=== PATIENT | female | born 1975 | race African-American/Black ===

== ENCOUNTER 2016-11-15 11:37 | Emergency (ER) | payer MEDICARE, MEDICAID ==
[2016-11-15 12:09] LABS: #Basophils 0.1 thou/uL (0.0-0.2); #Eosinphils 0.2 thou/uL (0.0-0.7); #Lymphocytes 2.8 thou/uL (1.20-3.40); #Monocytes 0.5 thou/uL (0.11-0.59); #Neutrophils 5.2 thou/uL (1.40-6.50); %Basophils 0.6 % (0.0-1.0); %Eosinophils 2.1 % (0.0-10.0); %Monocytes 6.1 % (0.0-10.0); Hematocrit 41.8 % (36.0-47.0); Mean Platelet Volume 6.6 fL (7.4-10.4); Red Blood Cell (RBC) Count 4.85 mill/uL (4.20-5.40); White Blood Cell (WBC) Count 8.7 thou/uL (4.8-10.8)
[2016-11-15 12:24] LABS: Bilirubin Negative (Negative); Blood, Urine Negative (Negative); Glucose, Urine (Dipstick) Negative (Negative); Ketone, Urine Negative (Negative); Nitrite Negative (Negative); Protein, Urine (Dipstick) Negative (Neg-Trace); Urobilinogen 0.2 mg/dL (0.2-1.0)
[2016-11-15 12:27] LABS: Bacteria/HPF Rare-Few HPF (None Seen); Hyaline Casts/LPF 0-3 HYALINE CAST LPF (0-3 Hyaline); RBC/HPF 0-3 HPF (0-3); WBC/HPF 0-3 HPF (0-3)
--- NOTE | 2016-11-15 12:27 | RAD ---
PORTABLE CHEST 1 VIEW: Date: 11/15/16 Time: 1209 hours HISTORY: Chest pain, hypertension, aortic stenosis. FINDINGS: Comparison made with exam of 08/26/16. The heart size is normal. No focal areas of consolidation, pneumothorax, or pleural effusions are se en. IMPRESSION: No acute process. POS: [facility]
[2016-11-15 12:33] LABS: ALT (SGPT) 13 U/L (8-55); AST (SGOT) 17 U/L (5-34); Alkaline Phosphatase 146 U/L (40-150); Anion Gap 12 mmol/L (10-20); BUN (Urea Nitrogen) 8 mg/dL (7.0-18.7); Bilirubin, Total 0.2 mg/dL (0.2-1.2); CK (CPK) 64 U/L (29-168); Calc. Creatinine Clearance 0 mL/min (70-130); Calcium 9.5 mg/dL (7.8-10.44); Carbon Dioxide 26 mmol/L (22-29); Chloride 103 mmol/L (98-107); Estimated GFR-MDRD Greater than 90; Globulin 5.6 g/dL (2.4-3.5); Lipase 29 U/L (8-78); Protein, Total 9.4 g/dL (6.0-8.3)
[2016-11-15 12:37] LABS: Troponin I Less than 0.010 ng/mL (< 0.028)
[2016-11-15] MEDS ORDERED: Ondansetron ODT 4 MG TAB ONE (12:55)
[2016-11-15] MEDS ORDERED: Ondansetron HCl/PF 4 MG/2 ML Vial ONE (13:13)
[2016-11-15] MEDS ORDERED: Acetaminophen 500 MG TAB ONE (13:13)
== END 2016-11-15 13:38 | disposition home or self-care (01) ==
LOC: ERS 11:37
DX: I35.0 Nonrheumatic aortic (valve) stenosis (principal); I25.10 Atherosclerotic heart disease of native coronary artery without angina pectoris; I25.2 Old myocardial infarction; I38 Endocarditis, valve unspecified; I10 Essential (primary) hypertension; G47.30 Sleep apnea, unspecified; B20 Human immunodeficiency virus [HIV] disease; E55.9 Vitamin D deficiency, unspecified; F31.9 Bipolar disorder, unspecified; Z86.73 Personal history of transient ischemic attack (TIA), and cerebral infarction without residual deficits
CPT/HCPCS: 71010; 80053; 81003; 81015; 82550; 82553; 83690; 84484; 85025; 93005; 96374; J2405; Q0162

== ENCOUNTER 2017-01-09 10:59 | Day surgery (SDC) | payer MEDICARE, MEDICAID ==
[2017-01-08 14:43] VITALS: BMI 49.1
--- NOTE | 2017-01-09 16:18 | OP ---
DATE OF PROCEDURE: 01/09/2017 GI ENDOSCOPY NOTE SURGEON: Amari Rajan M.D. CABIN EQUIPMENT SUPERVISOR SURGEON: None. PROCEDURES: 1. Esophagogastroduodenoscopy, diagnostic. 2. Colonoscopy, diagnostic. INDICATIONS: 1. Chronic nausea and vomiting, with history of mild gastritis on EGD in 2014. 2. Abnormal CT scan of the colon, suggesting possible 2.5 cm density in the cecum near the ileocecal valve. MEDICATIONS: See anesthesia record. FINDINGS: After discussion of the risks, benefits and alternatives of the procedure, informed consen t was obtained and witnessed. Pre-endoscopic cardiopulmonary examination was satisfactory. Timeout was performed before sedation was achieved. Sedation was achieved with anesthesia assistance in the endoscopy unit. A Pentax adult upper endoscope was placed into the oropharynx and passed through the cricopharyngeus under direct visualization. The esophageal mucosa appeared normal throughout with a normal-appearing Z-line. The endoscope was advanced forward into the stomach. Forward and retrofle xed views of the entire gastric mucosa were obtained. The gastric mucosa appeared normal. The endos cope was advanced through the pylorus and into the first and second portions of the duodenum, which a lso appeared normal. The upper endoscope was then completely withdrawn and the patient was repositio ailyn. Digital rectal exam was performed which was unremarkable. A Pentax adult colonoscope was inserted in to the anus and passed forward to the cecum in the usual fashion. The cecal base was identified by t he appendiceal orifice as well as the ileocecal valve. The terminal ileum was intubated and the ilea l mucosa appeared normal. The colonoscope was then slowly withdrawn in a gradual and circumferential manner with careful examination of the entire colonic mucosa. The quality of the prep was good. Th e colonic mucosa appeared normal throughout. No evidence of any mucosal abnormality, no polyps or ot her lesion. Retroflexion in the rectum was also normal. The colonoscope was completely withdrawn an d the patient allowed to recover. The patient tolerated the procedure well. There were no immediate post-procedure complications. IMPRESSION: 1. Normal esophagogastroduodenoscopy. 2. Normal colonoscopy to the terminal ileum. 3. No endoscopic findings to correlate with recent CT abnormality. 4. I suspect her chronic nausea and vomiting is secondary to polypharmacy. RECOMMENDATIONS: 1. We will send him a prescription for promethazine 12.5 mg every 6 hours as needed. 2. Follow up in about a month in the GI Clinic with myself or one of our physician assistance.
[2017-01-09] MEDS ORDERED: Lidocaine 1% PF 5 ML VIAL ONE (18:35)
[2017-01-09] MEDS ORDERED: Propofol 200 MG/20 ML VIAL ONE (18:35)
== END 2017-01-09 14:57 | disposition home or self-care (01) ==
LOC: SDC 10:59
PROVIDERS: ATTEND Internal Medicine
PROC: 0DJD8ZZ Inspection of Lower Intestinal Tract, Via Natural or Artificial Opening Endoscopic (ICD-10-PCS; principal; 2017-01-09)
PROC: 0DJ08ZZ Inspection of Upper Intestinal Tract, Via Natural or Artificial Opening Endoscopic (ICD-10-PCS; 2017-01-09)
DX: R93.3 Abnormal findings on diagnostic imaging of other parts of digestive tract (principal); R11.2 Nausea with vomiting, unspecified; E66.9 Obesity, unspecified; G47.30 Sleep apnea, unspecified; F41.9 Anxiety disorder, unspecified; F32.9 Major depressive disorder, single episode, unspecified; Z21 Asymptomatic human immunodeficiency virus [HIV] infection status; Z68.42 Body mass index [BMI] 45.0-49.9, adult; Z79.82 Long term (current) use of aspirin; Z79.899 Other long term (current) drug therapy; Z88.8 Allergy status to other drugs, medicaments and biological substances; Z90.89 Acquired absence of other organs; Z90.710 Acquired absence of both cervix and uterus; Z98.890 Other specified postprocedural states
CPT/HCPCS: J2001; J2704

== ENCOUNTER 2017-02-25 16:00 | Outpatient (CLI) | payer MEDICARE, MEDICAID | END 2017-02-25 16:01 | disposition home or self-care (01) | LOC: BICMRI 16:00 | PROVIDERS: ATTEND Family Medicine | DX: M25.561 Pain in right knee (principal); S83.281A Other tear of lateral meniscus, current injury, right knee, initial encounter; M94.261 Chondromalacia, right knee; M89.8X6 Other specified disorders of bone, lower leg; M17.11 Unilateral primary osteoarthritis, right knee ==

== ENCOUNTER 2017-03-15 15:38 | Emergency (ER) | payer MEDICARE, MEDICAID ==
[2017-03-15 16:21] LABS: #Eosinphils 0.2 thou/uL (0.0-0.7); #Lymphocytes 2.5 thou/uL (1.20-3.40); #Monocytes 0.6 thou/uL (0.11-0.59); #Neutrophils 5.1 thou/uL (1.40-6.50); %Basophils 0.4 % (0.0-1.0); %Monocytes 6.7 % (0.0-10.0); %Neutrophils 60.9 % (42.0-75.0); Hemoglobin 12.4 g/dL (12.0-16.0); Mean Corpuscular HGB CONC 34.1 g/dL (32.0-36.0); Mean Corpuscular Hemoglobin 29.9 pg (27.0-31.0); Mean Corpuscular Volume 87.8 fl (81.0-99.0); Mean Platelet Volume 6.6 fL (7.4-10.4); Platelet Count 265 thou/uL (130-400); RBC Distribution Width 12.5 % (11.5-14.5); Red Blood Cell (RBC) Count 4.16 mill/uL (4.20-5.40); White Blood Cell (WBC) Count 8.4 thou/uL (4.8-10.8)
[2017-03-15 16:28] LABS: INR-International Normal Ratio 1.1; PTT 25.8 SEC (22.9-36.1)
[2017-03-15 16:45] LABS: ALT (SGPT) 11 U/L (8-55); AST (SGOT) 15 U/L (5-34); Albumin 3.7 g/dL (3.5-5.0); Alkaline Phosphatase 185 U/L (40-150); Anion Gap 11 mmol/L (10-20); BUN (Urea Nitrogen) 8 mg/dL (7.0-18.7); Bilirubin, Total 0.3 mg/dL (0.2-1.2); CK (CPK) 57 U/L (29-168); Calc. Creatinine Clearance 0 mL/min (70-130); Carbon Dioxide 26 mmol/L (22-29); Chloride 105 mmol/L (98-107); Estimated GFR-MDRD Greater than 90; Globulin 4.8 g/dL (2.4-3.5); Glucose 87 mg/dL (70-105); Lipase 14 U/L (8-78); Potassium 3.6 mmol/L (3.5-5.1); Protein, Total 8.5 g/dL (6.0-8.3); Sodium 138 mmol/L (136-145)
[2017-03-15 16:49] LABS: CKMB 0.4 ng/mL (0-6.6); Troponin I 0.014 ng/mL (< 0.028)
--- NOTE | 2017-03-15 17:21 | RAD ---
CHEST ONE VIEW: 03/15/17 HISTORY: 42-year-old female with history of aortic stenosis and heart murmur, chest pain, patient is under str ess. COMPARISON: 11/15/16. Heart size is normal. The lungs are clear. No pneumonia, edema, pleural effusion, or other acute proc ess. IMPRESSION: No acute intrathoracic disease. POS: [facility]
== END 2017-03-15 18:40 | disposition home or self-care (01) ==
LOC: ERS 15:38
DX: R07.89 Other chest pain (principal); I25.10 Atherosclerotic heart disease of native coronary artery without angina pectoris; I25.2 Old myocardial infarction; I10 Essential (primary) hypertension; F31.9 Bipolar disorder, unspecified; B20 Human immunodeficiency virus [HIV] disease
CPT/HCPCS: 36415; 71045; 80053; 82550; 82553; 83690; 83880; 84484; 85025; 85610; 85730; 93005

== ENCOUNTER 2017-03-27 14:01 | Outpatient (CLI) | payer MEDICARE, MEDICAID ==
[2017-03-27 15:22] LABS: #Basophils 0.1 thou/uL (0.0-0.2); #Eosinphils 0.1 thou/uL (0.0-0.7); #Lymphocytes 2.7 thou/uL (1.20-3.40); #Monocytes 0.4 thou/uL (0.11-0.59); %Basophils 1.2 % (0.0-1.0); %Eosinophils 1.2 % (0.0-10.0); %Lymphocytes 28.4 % (21.0-51.0); %Monocytes 4.7 % (0.0-10.0); %Neutrophils 64.5 % (42.0-75.0); Bilirubin Negative (Negative); Blood, Urine Negative (Negative); Clarity CLEAR (Clear); Glucose, Urine (Dipstick) Negative (Negative); Hemoglobin 13.3 g/dL (12.0-16.0); Leukocyte Small (Negative); Mean Corpuscular HGB CONC 33.7 g/dL (32.0-36.0); Mean Corpuscular Hemoglobin 29.4 pg (27.0-31.0); Mean Platelet Volume 6.9 fL (7.4-10.4); Nitrite Negative (Negative); Platelet Count 299 thou/uL (130-400); Protein, Urine (Dipstick) Negative (Neg-Trace); RBC Distribution Width 12.8 % (11.5-14.5); Red Blood Cell (RBC) Count 4.52 mill/uL (4.20-5.40); Urobilinogen 0.2 mg/dL (0.2-1.0); White Blood Cell (WBC) Count 9.3 thou/uL (4.8-10.8)
[2017-03-27 15:25] LABS: Bacteria/HPF None Seen HPF (None Seen); Hyaline Casts/LPF 0-3 HYALINE CAST LPF (0-3 Hyaline); Pathc Cast-AUWi Flag 0.27 (0-2.49); WBC/HPF 0-3 HPF (0-3)
[2017-03-27 15:33] LABS: RBC/HPF 0-3 HPF (0-3)
[2017-03-27 15:40] LABS: Anion Gap 11 mmol/L (10-20); BUN (Urea Nitrogen) 12 mg/dL (7.0-18.7); Calc. Creatinine Clearance 0 mL/min (70-130); Calcium 9.6 mg/dL (7.8-10.44); Carbon Dioxide 21 mmol/L (22-29); Chloride 106 mmol/L (98-107); Estimated GFR-MDRD Greater than 90; Glucose 99 mg/dL (70-105); Potassium 3.4 mmol/L (3.5-5.1); Sodium 135 mmol/L (136-145)
--- NOTE | 2017-03-28 22:02 | EKG ---
Test Reason : Blood Pressure : / mmHG Vent. Rate : 100 BPM Atrial Rate : 100 BPM P-R Int : 150 ms QRS Dur : 080 ms QT Int : 334 ms P-R-T Axes : 047 040 -01 degrees QTc Int : 430 ms Normal sinus rhythm Cannot rule out Inferior infarct , age undetermined Abnormal ECG When compared with ECG of 15-MAR-2017 15:47, Minimal criteria for Inferior infarct are now Present Confirmed by DISHA VILLA ([id number]) on 03/28/2017 10:02:31 PM Referred By: SHANNEN Confirmed By:DISHA VILLA
== END 2017-03-27 14:02 | disposition home or self-care (01) ==
LOC: LABBT 14:01
PROVIDERS: ATTEND Orthopaedic Surgery
DX: Z01.812 Encounter for preprocedural laboratory examination (principal); S83.281A Other tear of lateral meniscus, current injury, right knee, initial encounter
CPT/HCPCS: 80048; 81001; 85025; 93005; 93010

== ENCOUNTER 2017-03-28 05:36 | Day surgery (SDC) | payer MEDICARE, MEDICAID ==
[2017-03-27 14:21] VITALS: BMI 49.6
[2017-03-28] MEDS ORDERED: CEFAZOLIN/Water 2 GM/20 ML SYRINGE ONE (06:15)
[2017-03-28] MEDS ORDERED: Lidocaine 1% w/Epinephrine 1:200K 30 ML VIAL ONE (06:27)
[2017-03-28] MEDS ORDERED: Bupivacaine 0.25% HCL 30 ML VIAL ONE (06:27)
[2017-03-28] MEDS ORDERED: Midazolam HCl 2 mg/2 ml Vial ONE (06:41)
[2017-03-28] MEDS ORDERED: Fentanyl 100 MCG/2 ML VIAL ONE ×3 (06:41→08:24)
[2017-03-28] MEDS ORDERED: HYDROcodone/Acetaminophen 5/325 mg Tablet ONE (09:35)
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
[2017-03-28] MEDS ORDERED: Glycopyrrolate 0.2 MG/ML 5 ML SYRINGE ONE (13:10)
[2017-03-28] MEDS ORDERED: Ondansetron HCl/PF 4 MG/2 ML Vial ONE (13:10)
[2017-03-28] MEDS ORDERED: Lidocaine 1% PF 5 ML VIAL ONE (13:10)
[2017-03-28] MEDS ORDERED: Ketorolac Tromethamine 30 MG/ML VIAL ONE (13:10)
[2017-03-28] MEDS ORDERED: Propofol 200 MG/20 ML VIAL ONE (13:10)
== END 2017-03-28 10:50 | disposition home or self-care (01) ==
LOC: SDC 05:36
PROVIDERS: ATTEND Orthopaedic Surgery
PROC: 0SBC4ZZ Excision of Right Knee Joint, Percutaneous Endoscopic Approach (ICD-10-PCS; principal; 2017-03-28)
DX: S83.251A Bucket-handle tear of lateral meniscus, current injury, right knee, initial encounter (principal); M94.261 Chondromalacia, right knee; M79.7 Fibromyalgia; F31.9 Bipolar disorder, unspecified; I10 Essential (primary) hypertension; F41.9 Anxiety disorder, unspecified; E55.9 Vitamin D deficiency, unspecified; G62.9 Polyneuropathy, unspecified; I35.0 Nonrheumatic aortic (valve) stenosis; Z21 Asymptomatic human immunodeficiency virus [HIV] infection status; Z79.82 Long term (current) use of aspirin; Z79.899 Other long term (current) drug therapy; Z88.8 Allergy status to other drugs, medicaments and biological substances; Z90.710 Acquired absence of both cervix and uterus; Z90.89 Acquired absence of other organs; Z98.890 Other specified postprocedural states; Z98.891 History of uterine scar from previous surgery
CPT/HCPCS: 29881; 96374; 97139; G8978; G8979; G8980; J2250; J3010; S0020

== ENCOUNTER 2017-07-01 02:39 | Emergency (ER) | payer MEDICARE, MEDICAID ==
[2017-07-01 03:42] LABS: #Basophils 0.1 thou/uL (0.0-0.2); #Eosinphils 0.3 thou/uL (0.0-0.7); #Lymphocytes 2.1 thou/uL (1.20-3.40); #Monocytes 0.5 thou/uL (0.11-0.59); #Neutrophils 5.2 thou/uL (1.40-6.50); %Basophils 0.8 % (0.0-1.0); %Eosinophils 3.7 % (0.0-10.0); %Lymphocytes 25.7 % (21.0-51.0); %Monocytes 5.5 % (0.0-10.0); %Neutrophils 64.3 % (42.0-75.0); Hemoglobin 13.6 g/dL (12.0-16.0); Mean Corpuscular HGB CONC 34.4 g/dL (32.0-36.0); Mean Corpuscular Hemoglobin 29.8 pg (27.0-31.0); Mean Corpuscular Volume 86.6 fl (81.0-99.0); Mean Platelet Volume 6.6 fL (7.4-10.4); Platelet Count 218 thou/uL (130-400); RBC Distribution Width 13.4 % (11.5-14.5); Red Blood Cell (RBC) Count 4.57 mill/uL (4.20-5.40); White Blood Cell (WBC) Count 8.1 thou/uL (4.8-10.8)
[2017-07-01 03:55] LABS: ALT (SGPT) 16 U/L (8-55); AST (SGOT) 15 U/L (5-34); Albumin 3.8 g/dL (3.5-5.0); Alkaline Phosphatase 212 U/L (40-150); Anion Gap 12 mmol/L (10-20); BUN (Urea Nitrogen) 7 mg/dL (7.0-18.7); Bilirubin, Total 0.4 mg/dL (0.2-1.2); CK (CPK) 72 U/L (29-168); Calc. Creatinine Clearance 0 mL/min (70-130); Calcium 9.1 mg/dL (7.8-10.44); Carbon Dioxide 21 mmol/L (22-29); Chloride 109 mmol/L (98-107); Estimated GFR-MDRD Greater than 90; Globulin 4.1 g/dL (2.4-3.5); Glucose 128 mg/dL (70-105); Potassium 3.5 mmol/L (3.5-5.1); Protein, Total 7.9 g/dL (6.0-8.3); Sodium 138 mmol/L (136-145)
[2017-07-01 03:59] LABS: CKMB 0.6 ng/mL (0-6.6); Troponin I Less than 0.010 ng/mL (< 0.028)
[2017-07-01] MEDS ORDERED: Ketorolac Tromethamine 30 MG/ML VIAL ONE (04:25)
--- NOTE | 2017-07-01 09:01 | RAD ---
AP PORTABLE VIEW CHEST: Date: 07/01/17 HISTORY: Chest pain. FINDINGS: AP view of chest obtained. Comparison made to previous exam from 03/15/17. AP view of chest demonstrates what appears to be eventration of the right hemidiaphragm with area of soft tissue density just medial to the right hemidiaphragm. This is stable and unchanged since the pr evious comparison exam. No significant interval change is seen since the previous exam. No evidence o f acute intrathoracic abnormality seen. No evidence of effusions, pneumonia, or pneumothorax seen. IMPRESSION: Scalloped appearing right hemidiaphragm, unchanged since the previous exam. These may represent a foc al area of right hemidiaphragm eventration. No other acute intrathoracic abnormality seen. POS: [facility]
== END 2017-07-01 05:09 | disposition home or self-care (01) ==
LOC: ERS 02:39
DX: R07.89 Other chest pain (principal); B20 Human immunodeficiency virus [HIV] disease; E55.9 Vitamin D deficiency, unspecified; F31.9 Bipolar disorder, unspecified; F43.10 Post-traumatic stress disorder, unspecified; G43.109 Migraine with aura, not intractable, without status migrainosus; G62.9 Polyneuropathy, unspecified; I10 Essential (primary) hypertension; I25.10 Atherosclerotic heart disease of native coronary artery without angina pectoris; I25.2 Old myocardial infarction; I35.0 Nonrheumatic aortic (valve) stenosis; G47.30 Sleep apnea, unspecified; Z86.73 Personal history of transient ischemic attack (TIA), and cerebral infarction without residual deficits
CPT/HCPCS: 36415; 71045; 80053; 82550; 82553; 84484; 85025; 93005; 94760; 96374; J1885

== ENCOUNTER 2017-07-04 17:13 | Observation (INO) | payer MEDICARE, MEDICAID ==
[~2017-07-04 17:13] MED LIST: ISOVUE-370 76%-LOCM 1 ML ONE
[2017-07-04] MEDS ORDERED: Ondansetron ODT 4 MG TAB ONE (17:54)
[2017-07-04] MEDS ORDERED: Morphine 4 MG/ML VIAL ONE (17:54)
--- NOTE | 2017-07-04 18:05 | RAD ---
CHEST ONE VIEW 07/04/17 HISTORY: Chest pain. COMPARISON: Chest radiograph 07/01/17. FINDINGS: Lungs are clear. No pneumothorax or effusion. The cardiac silhouette and mediastinal contours are wit hin normal limits. IMPRESSION: No acute intrathoracic abnormality. POS: [facility]
[2017-07-04 18:41] LABS: #Eosinphils 0.2 thou/uL (0.0-0.7); #Lymphocytes 2.3 thou/uL (1.20-3.40); #Monocytes 0.5 thou/uL (0.11-0.59); #Neutrophils 5.2 thou/uL (1.40-6.50); %Basophils 0.2 % (0.0-1.0); %Lymphocytes 27.7 % (21.0-51.0); %Monocytes 6.6 % (0.0-10.0); %Neutrophils 63.5 % (42.0-75.0); Hemoglobin 13.4 g/dL (12.0-16.0); Mean Corpuscular HGB CONC 33.5 g/dL (32.0-36.0); Mean Corpuscular Hemoglobin 28.9 pg (27.0-31.0); Mean Corpuscular Volume 86.3 fl (81.0-99.0); Mean Platelet Volume 6.3 fL (7.4-10.4); Platelet Count 277 thou/uL (130-400); RBC Distribution Width 13.5 % (11.5-14.5); Red Blood Cell (RBC) Count 4.64 mill/uL (4.20-5.40); White Blood Cell (WBC) Count 8.2 thou/uL (4.8-10.8)
[2017-07-04 19:07] LABS: CKMB 0.4 ng/mL (0-6.6)
[2017-07-04 19:10] LABS: ALT (SGPT) 12 U/L (8-55); AST (SGOT) 13 U/L (5-34); Albumin 3.8 g/dL (3.5-5.0); Alkaline Phosphatase 214 U/L (40-150); Anion Gap 12 mmol/L (10-20); BUN (Urea Nitrogen) 12 mg/dL (7.0-18.7); Bilirubin, Total 0.2 mg/dL (0.2-1.2); CK (CPK) 36 U/L (29-168); Calc. Creatinine Clearance 0 mL/min (70-130); Carbon Dioxide 20 mmol/L (22-29); Chloride 109 mmol/L (98-107); Estimated GFR-MDRD 78; Globulin 4.1 g/dL (2.4-3.5); Glucose 101 mg/dL (70-105); Lipase 17 U/L (8-78); Potassium 3.8 mmol/L (3.5-5.1); Protein, Total 7.9 g/dL (6.0-8.3); Sodium 137 mmol/L (136-145)
[2017-07-04 19:21] LABS: Troponin I Less than 0.010 ng/mL (< 0.028)
--- NOTE | 2017-07-04 20:22 | CT ---
CT ANGIOGRAM CHEST WITH CONTRAST 07/04/17 HISTORY: Chest pain. Elevated D-dimer. COMPARISON: Chest radiograph same day. TECHNIQUE: CT angiogram chest performed after the intravenous administration of contrast. 3D rendering provided. FINDINGS: No proximal segmental pulmonary arterial defect. Pulmonary trunk size is normal. The aortic size is n ormal. No pericardial effusion. Mildly prominent axillary lymph nodes. Upper abdomen is unremarkable. No focal air space consolidation, pneumothorax or effusion. No displac ed rib fracture. IMPRESSION: 1. No segmental pulmonary arterial filling defect. 2. No acute inflammatory process in the chest. POS: [facility]
--- NOTE | 2017-07-04 21:28 | PDOC.FPRHP ---
Addendum entered and electronically signed by Chano Mendez DO 07/05/17 04: 01: PPX SCDs and protonix for dvt and GI ppx, respectively PCP: [facility] Code status: Pt wants to be full code Original Note: - History of Present Illness Chief Complaint: chest pain History of Present Illness: 42 yo F with pmh ofhtn, DEBORAH, aortic stenosis, HIV, cervical radiculopathy and GERD was sent from clinic for concerns of unstable angina. Pt reports chest pain started earlier in the day and she had associated left arm pain with radiation into the left arm and associated nausea as well. She did report feeling a bit flushed. On Further questioning pt repors persistent nausea over last week with associated decreased appetite and feeling sick with the though of food. She also states the left arm pain is similar to feelings of radiculopathy in the past. States morphine relieved symptoms. She does endorse point tenderness in the epigastric region that is similar to her reported pain. Denies fever, chills, sweats, associated SOB. No diarrhea, constipation, cough. ED Course: 4mg morphine, zofran, 1LNS - Allergies/Adverse Reactions Allergies Allergy/AdvReac Type Severity Reaction Status Date / Time lisinopril Allergy facial Verified 03/27/17 14:23 swelling - Home Medications Medication Instructions Recorded Confirmed Type AcetaZOLAMIDE [Diamox] 1 tab PO BID 01/08/17 07/05/17 History Allopurinol [Allopurinol] 1 tab PO HS 01/08/17 07/05/17 History Aspirin [Ecotrin] 81 mg PO HS 01/08/17 07/05/17 History Cholecalciferol (Vitamin D3) 1,000 unit PO HS 01/08/17 07/05/17 History [Vitamin D3] Dolutegravir Sodium [Tivicay] 1 tab PO HS 01/08/17 07/05/17 History Emtricitabine/Tenofov Alafenam 1 tab PO HS 01/08/17 07/05/17 History [Descovy 200-25 mg Tablet] Metoprolol Tartrate [Metoprolol 1 tab PO BID 01/08/17 07/05/17 History Tartrate] NIFEdipine [Nifedipine ER] 1 tab PO BID 01/08/17 07/05/17 History Pnv No.95/Ferrous Fum/Folic AC 1 tab PO HS 01/08/17 07/05/17 History [ Multivitamin Tablet] Potassium Chloride 1 tab PO HS 01/08/17 07/05/17 History Pregabalin [Lyrica] 1 cap PO TID 01/08/17 07/05/17 History Topiramate [Topiramate] 1 tab PO HS 01/08/17 07/05/17 History Thiamine HCl [Vitamin B-1] 50 mg PO QAM 03/27/17 07/05/17 History - History PMHx:HTN, DEBORAH, , Cervical radiculopathy, GERD, asthma PSHx: C section X3, Heart cath 2015 FHx: Sister [place] @ 46, Paternal grandfather [place] Social: Nonsmoker, non-drinker, no drugs - Vital signs BP: 109/65 HR: 65 RR: 15 Tmax: 98.1 Pox: 97% on RA Wt: 130Kg - Physical Exam Constitutional: NAD, awake, alert and oriented, other (Morbidly obese) HEENT: normocephalic and atraumatic, PERRLA, EOMI, conjunctiva clear, no scleral icterus, grossly normal vision, grossly normal hearing Neck: supple, FROM, trachea midline, no LAD, no JVD Chest: no-tender to palpation, no lesions Heart: RRR, normal S1/S2, no murmurs/rubs/gallops, pulses present, no edema Lungs: CTAB, no respiratory distress, good air movement, no rales/rhonchi, no wheezing, no retractions Abdomen: soft, bowel sounds present, no masses/distention, other (TTP epigastric region) Musculoskeletal: normal structure, normal tone Neurological: no focal deficit, normal sensation Skin: no rash/lesions, good turgor, capillary refill <2 seconds Heme/Lymphatic: no unusual bruising or bleeding, no petechia FMR H&P: Results - Labs Result Diagrams: 07/05/17 06:24 07/04/17 18:30 Lab results: WBC 8.2 thou/uL (4.8-10.8) 07/04/17 18:30 Hgb 13.4 g/dL (12.0-16.0) 07/04/17 18:30 Hct 40.0 % (36.0-47.0) 05/17/18 18:30 MCV 86.3 fl (81.0-99.0) 07/04/17 18:30 Plt Count 277 thou/uL (130-400) 07/04/17 18:30 Neutrophils % 63.5 % (42.0-75.0) 18 18:30 Sodium 137 mmol/L (136-145) 07/04/17 18:30 Potassium 3.8 mmol/L (3.5-5.1) 07/04/17 18:30 Chloride 109 mmol/L (98-107) H 07/04/17 18:30 Carbon Dioxide 20 mmol/L (22-29) L 07/04/17 18:30 BUN 12 mg/dL (7.0-18.7) 07/04/17 18:30 Creatinine 0.96 mg/dL (0.6-1.1) 07/04/17 18:30 Glucose 101 mg/dL (70-105) 07/04/17 18:30 Calcium 9.0 mg/dL (7.8-10.44) 07/04/17 18:30 Total Bilirubin 0.2 mg/dL (0.2-1.2) 07/04/17 18:30 AST 13 U/L (5-34) 07/04/17 18:30 ALT 12 U/L (8-55) 07/04/17 18:30 Alkaline Phosphatase 214 U/L (40-150) H 07/04/17 18:30 Creatine Kinase 36 U/L (29-168) 07/04/17 18:30 CK-MB (CK-2) 0.4 ng/mL (0-6.6) 07/04/17 18:30 B-Natriuretic Peptide Less than 10.0 pg/mL (0-100) 07/04/17 18:39 Serum Total Protein 7.9 g/dL (6.0-8.3) 07/04/17 18:30 Albumin 3.8 g/dL (3.5-5.0) 18 18:30 Lipase 17 U/L (8-78) 07/04/17 18:30 - EKG Interpretation EKG: NSR, rate 90, normal axis, No ST/T wave changes - Radiology Interpretation Chest x-ray Status: report reviewed by me (No acute intrathoracic process) CT scan - chest Status: report reviewed by me (No PE) FMR H&P: A/P - Problem List (1) Chest pain, atypical Current Visit: Yes Status: Acute Code(s): R07.89 - OTHER CHEST PAIN (2) GERD (gastroesophageal reflux disease) Current Visit: Yes Status: Acute Code(s): K21.9 - GASTRO-ESOPHAGEAL REFLUX DISEASE WITHOUT ESOPHAGITIS (3) Cervical radiculopathy Current Visit: Yes Status: Acute Code(s): M54.12 - RADICULOPATHY, CERVICAL REGION (4) HTN (hypertension) Current Visit: Yes Status: Acute Code(s): I10 - ESSENTIAL (PRIMARY) HYPERTENSION (5) DEBORAH (obstructive sleep apnea) Current Visit: Yes Status: Acute Code(s): G47.33 - OBSTRUCTIVE SLEEP APNEA ( ADULT) (PEDIATRIC) (6) Aortic stenosis Current Visit: Yes Status: Acute Code(s): I35.0 - NONRHEUMATIC AORTIC (VALVE ) STENOSIS (7) HIV (human immunodeficiency virus infection) Current Visit: Yes Status: Acute - Plan 1) Atypical chest pain: Pt reports central chest pain that is reproducible with palpation of epigastric region. She does have radiation of pain down the left arm; however, upon further questioning she reports the pain is similar to episodes in the past related to her cervical radiculopathy. Heart score 2 and troponins are negative. Does have h/o moderate and had most recent stress and cardiac cath done in 2016 which was normal. We will plan for stress in the am given history, but will treat pain with GI cocktail and IV pepcid X1. Morphine was given in ED in addition to zofan and IVF. Negative CT-A. 2) GERD: s/s likely related to GERD. GI cocktail and pepcid IV X1. Daily protonix. She has also noted decreased appetitie and associated nausea with eh thought of food recently. 3) Cervical radiculopathy: Pt reports s/s on left arm are similar to prior episodes. This is likely cause of her mimicking symptoms. Stable, monitor. 4) DEBORAH: Nightly CPAP 5) Aortic stenosis: Stable, am stress. 6)HTN: COnt home meds. Hold bb and ccb for am stress. Given body habitus likely 2 day stress needed. 7) HIV: pt does not want family knowing about her diagnosis. Stable on ARRT Disposition/LOS: stable, </= 2 days FMR H&P: Upper Level - Pertinent history 42 yo AAF with PMHx morbid obesity, GERD, cervical radiculopathy, aortic stenosis, DEBORAH, HIV, HLD, and HTN presented to ED for chest pain. Pt was seen for 3 ED evaluations (including two today) in last 4 days. She was seen in [facility] this afternoon with continued chest pain so sent back to ED. Endorses substernal chest pain radiating to between her shoulder blades starting Saturday morning. Occurs with SOB. Has been present consistently this week with exception of following nitro and ASA in ED on Saturday. She also endorses pain down L arm different than her typical tingling from cervical radiculopathy. Endorses feeling anxious with the pain and states I feel everything getting dark which prompts 911 calls. Also endorses persistent nausea with eating all week. Denies heartburn. C/o sinus drainage but no fever. Last stress test 12/03 - nml. Dr. Michel is her pricer. Sister of [place] in her 40s. - Pertinent findings Gen: obese, alert, NAD HEENT: MMM CV: RRR, no m/r/g Lungs: CTAB, no increased WOB Abd: soft, mod-severe TTP in epigastrium, otherwise NT/ND, no guarding/rebound Ext: MAEW, no edema - Plan Date/Time: 07/04/172127 1. Atypical chest pain. Actually appears more GI and/or anxiety related. Pt has been ruled out with negative trop at [facility] this AM and negative here. Will trend x3 in case. Pain present since Saturday. With nausea/vomiting, treat with GI cocktail and PPI. Monitor for improvement. Heart score 2. EKG normal. Occurring at rest and some aspects of story could point cardiac in light of normal EKG, trops, etc. Plan to observe overnight and stress in AM. Likely to require 2 day exam due to body habitus. Dr. Michel is her pricer but will not plan to consult at this time unless symptoms appear more concerning for unstable angina. 2. GERD. Hx per chart but not on any meds. Start PPI and monitor. 3. Cervical radiculopathy. Tingling in arm at baseline. Pain over last few days could be worsening vs anginal component. Pt has scheduled back surgery next week. Stress test also helpful to clear surgically. 4. Aortic stenosis. Mild-moderate per clinic records with serial ECHOs through Dr. Michel. Caution with nitro although appeared to tolerate well in ED. 5. DEBORAH. CPAP nightly. 6. HTN. Home meds. Hold nifedipine for small chance of interfering with stress test. Hold beta ryan. 7. HIV. Pt does not want any family to be aware of diagnosis. Continue home med. Stable. I, Elkin Nice, have evaluated this patient and agree with findings/plan as outlined by international travel consultant resident. Pertinent changes/additions are listed here. Attending Addendum - Attending Addendum Date/Time: 07/05/17 [id number] I personally evaluated the patient and discussed the management with Dr. Mendez I agree with the History, Examination, Assessment and Plan documented above with any addition or exceptions noted below- Briefly this is a 42 yo AAF with PMHx morbid obesity, GERD, cervical radiculopathy, aortic stenosis, DEBORAH, HIV, HLD, and HTN presented to ED for chest pain. Pt was seen for 3 ED evaluations ( including two today) in last 4 days. She was seen in [facility] this afternoon with continued chest pain so sent back to ED. Pain is substernal radiating to between her shoulder blades starting Saturday morning. Occurs with SOB. Has been present consistently this week with exception of following nitro and ASA in ED on Saturday. She also endorses pain down L arm different than her typical tingling from cervical radiculopathy. Endorses feeling anxious with the pain and states I feel everything getting dark which prompts 911 calls. Denies heartburn. Last stress test 12/03 - nml. Dr. Michel is her pricer. PMH/ PSH/Meds/SH/All/ROS reviewed and agree with resident's documentation. T97.5 BP 122/85 P84 R18 99%RA Exam repeated by me and agree with resident's findings. Labs- troponin (-) x3. A/P: 1) Chest pain- cardiac enzymes negative; Heart score =2 but patient has upcoming surgery and would need cardiac clearance. Consider stress test versus discussion with her pricer regarding further evaluation.
[2017-07-04 22:06] LABS: Troponin I Less than 0.010 ng/mL (< 0.028)
[2017-07-04] MEDS: Ondansetron ODT 4 MG TAB PO PRN (22:37)
[2017-07-05] MEDS ORDERED: Famotidine/PF 20 mg/2ml Vial SLOW IVP SCH (00:46)
[2017-07-05 00:49] VITALS: BMI 50.8
[2017-07-05 00:51] LABS: Troponin I 0.012 ng/mL (< 0.028)
[2017-07-05] MEDS ORDERED: Lidocaine 2% Viscous Solution 10 ML, Aluminum & Magnesium Hydroxide 30 ML SSW SCH (01:00)
[2017-07-05] MEDS: Morphine 4 MG/ML VIAL SLOW IVP PRN ×2 (01:48→18:36)
--- NOTE | 2017-07-05 06:08 | PDOC.FM ---
- Subjective Subjective: Aroldo Hawk seen at bedside this morning. She states that she feels like her stomach is upset but otherwise feels better. She is scheduled for stress test this morning. She denies any fever, chills ,chest pain, dyspnea at this time. No acute events overnight. - Objective MAR Reviewed: Yes Vital Signs & Weight: Vital Signs (12 hours) Temp Pulse Resp BP BP Pulse Ox 07/05/17 04:00 97.6 F 77 18 126/70 95 07/05/17 01:38 97.5 F L 84 18 07/05/17 01:04 98 07/05/17 00:00 78 18 106/68 96 07/04/17 21:09 97.5 F L 84 18 117/85 99 Weight Weight 130.181 kg Result Diagrams: 07/05/17 06:24 07/04/17 18:30 EKG Reviewed by me: Yes (NSR) <Mack Geller - Last Filed: 07/05/17 08:05> - Objective Vital Signs & Weight: Vital Signs (12 hours) Temp Pulse Resp BP BP Pulse Ox 07/05/17 08:00 98.1 F 66 20 07/05/17 07:58 98.1 F 66 20 139/67 100 07/05/17 04:00 97.6 F 77 18 126/70 95 07/05/17 01:38 97.5 F L 84 18 07/05/17 01:04 98 07/05/17 00:00 78 18 106/68 96 Weight Weight 130.181 kg I&O: 07/04/17 07/05/17 07/06/17 06:59 06:59 06:59 Intake Total 350 Output Total 750 Balance -400 Result Diagrams: 07/05/17 06:24 07/04/17 18:30 <Lawson Cintron - Last Filed: 07/05/17 10:51> Phys Exam - Physical Examination Constitutional: NAD HEENT: moist MMs, sclera anicteric Neck: no JVD, supple, full ROM Respiratory: no wheezing, no rales, no rhonchi, clear to auscultation bilateral Cardiovascular: RRR, no significant murmur Gastrointestinal: soft, non-tender, no distention Musculoskeletal: no edema, pulses present Neurological: non-focal, normal sensation, moves all 4 limbs Psychiatric: normal affect, A&O x 3 Skin: no rash, normal turgor <Mack - Last Filed: 07/05/17 08:05> Dx/Plan (1) Aortic stenosis Code(s): I35.0 - NONRHEUMATIC AORTIC (VALVE) STENOSIS Status: Acute (2) Cervical radiculopathy Code(s): M54.12 - RADICULOPATHY, CERVICAL REGION Status: Acute (3) Chest pain, atypical Code(s): R07.89 - OTHER CHEST PAIN Status: Acute (4) GERD (gastroesophageal reflux disease) Code(s): K21.9 - GASTRO-ESOPHAGEAL REFLUX DISEASE WITHOUT ESOPHAGITIS Status: Acute (5) HIV (human immunodeficiency virus infection) Status: Acute (6) HTN (hypertension) Code(s): I10 - ESSENTIAL (PRIMARY) HYPERTENSION Status: Acute (7) DEBORAH (obstructive sleep apnea) Code(s): G47.33 - OBSTRUCTIVE SLEEP APNEA (ADULT) (PEDIATRIC) Status: Acute - Plan Plan: (1) Atypical chest pain: - Pt reports central chest pain that is reproducible with palpation of epigastric region. She does have radiation of pain down the left arm; however, upon further questioning she reports the pain is similar to episodes in the past related to her cervical radiculopathy. - Heart score 2 and troponins are negative. - H/o moderate and had most recent stress and cardiac cath done in 2016 which was normal - Stress this morning - Treat pain with GI cocktail and IV pepcid X1. Morphine was given in ED in addition to zofan and IVF. Negative CT-A. (2) GERD: - s/s likely related to GERD. GI cocktail and pepcid IV X1. Daily protonix. - noted decreased appetitie and associated nausea with eating (3) Cervical radiculopathy: - Pt reports s/s on left arm are similar to prior episodes. - This is likely cause of her mimicking symptoms. Stable, monitor. (4) DEBORAH: - Nightly CPAP (5) Aortic stenosis: - Stable, am stress. (6)HTN: - Cont home meds. Hold bb and ccb for am stress. Given body habitus likely 2 day stress needed. (7) HIV: pt does not want family knowing about her diagnosis. Stable on ARRT <Mack Geller - Last Filed: 07/05/17 08:05> Attending Addendum - Attending Addendum Date/Time: 07/05/17 1050 I personally evaluated the patient and discussed the management with Dr. Geller. I agree with the History, Examination, Assessment and Plan documented above with any addition or exceptions noted below. Patient feeling better this morning. Her pain complaints have moved to abdomen, and her questionable referred pain is more consistent with her known history of cervical radiculopathy. We are awaiting results of stress test, and if normal, can be discharged home once it has resulted/completed. <Lawson Cintron - Last Filed: 07/05/17 10:51>
[2017-07-05 06:35] LABS: #Eosinphils 0.3 thou/uL (0.0-0.7); #Lymphocytes 3.1 thou/uL (1.20-3.40); #Monocytes 0.6 thou/uL (0.11-0.59); #Neutrophils 3.8 thou/uL (1.40-6.50); %Basophils 0.4 % (0.0-1.0); %Eosinophils 3.7 % (0.0-10.0); %Lymphocytes 39.6 % (21.0-51.0); %Monocytes 7.6 % (0.0-10.0); %Neutrophils 48.6 % (42.0-75.0); Hemoglobin 11.9 g/dL (12.0-16.0); Mean Corpuscular Hemoglobin 28.6 pg (27.0-31.0); Mean Corpuscular Volume 86.6 fl (81.0-99.0); Mean Platelet Volume 6.3 fL (7.4-10.4); Platelet Count 236 thou/uL (130-400); RBC Distribution Width 13.6 % (11.5-14.5); Red Blood Cell (RBC) Count 4.18 mill/uL (4.20-5.40); White Blood Cell (WBC) Count 7.7 thou/uL (4.8-10.8)
[2017-07-05] MEDS ORDERED: Aspirin 325 MG TAB PO SCH (09:00)
[2017-07-05] MEDS ORDERED: Prevnar 13-Val Conj/PF 0.5 ML SYRINGE IM ONE (09:00)
[2017-07-05] MEDS: Pregabalin 50 MG CAP PO SCH ×3 (09:35→21:33)
[2017-07-05] MEDS: AcetaZOLAMIDE 250 MG TAB PO SCH ×2 (09:35→21:34)
[2017-07-05] MEDS ORDERED: Regadenoson 0.4 MG/5 ML SYRINGE ONE (10:10)
[2017-07-05] MEDS: Lorazepam 2 MG/ML VIAL SLOW IVP PRN ×2 (10:52→22:20)
[2017-07-05 11:10] LABS: Anion Gap 11 mmol/L (10-20); BUN (Urea Nitrogen) 12 mg/dL (7.0-18.7); Calc. Creatinine Clearance 195 mL/min (70-130); Calcium 8.7 mg/dL (7.8-10.44); Carbon Dioxide 17 mmol/L (22-29); Cardiac Risk 4.9 (Less than 4.5); Chloride 113 mmol/L (98-107); Cholesterol 216 mg/dl (< 200 Desired); Estimated GFR-MDRD Greater than 90; Glucose 84 mg/dL (70-105); HDL Cholesterol 44 mg/dL (>60 Neg Risk); LDL Cholesterol, Calculated 150 mg/dL; Sodium 137 mmol/L (136-145); Triglycerides 110 mg/dL (Less than 150)
--- NOTE | 2017-07-05 13:10 | STRESS ---
Acquisition Time: 2017-07-05 10:09:08 Total Exercise Time: 00:01:00 Test Indications: CHEST PAIN Medications: Protocol: LEXISCAN Max HR: 137 BPM 76% of Pred: 180 BPM Max BP: 134/084 mmHG Max Work Load: 1.0 METS RESTING ECG: NORMAL SINUS RHYTHM AT 97 BPM SYMPTOMS: NONE NORMAL BP RESPONSE ECTOPY: NONE ECG STRESS: NO SIGNIFICANT CHANGES INTERPRETATION: NEGATIVE ECG/AWAIT NUCLEAR IMAGES FOR DEFINITIVE DIAGNOSIS Confirmed by NAHOMI HOOVER ([id number]) on 07/05/2017 1:09:32 PM Referred By: MD Fer LARA Confirmed By:NAHOMI HOOVER
[2017-07-05] MEDS: Ondansetron ODT 4 MG TAB PO PRN (18:28)
[2017-07-05] MEDS ORDERED: TENOFOV ALAFENAM PO SCH (21:00)
[2017-07-05] MEDS ORDERED: EMTRICITABINE PO SCH (21:00)
[2017-07-05] MEDS ORDERED: DOLUTEGRAVIR SODIUM PO SCH ×2 (21:00)
[2017-07-05] MEDS ORDERED: Potassium Chloride 10 MEQ TAB PO SCH (21:00)
[2017-07-05] MEDS ORDERED: Prenatal Vitamin 1 TAB PO SCH (21:00)
[2017-07-05] MEDS ORDERED: Topiramate 25 MG TAB PO SCH (21:00)
[2017-07-05] MEDS ORDERED: Aspirin 81 mg Enteric Coated Tablet PO SCH (21:00)
[2017-07-05] MEDS ORDERED: Allopurinol 100 MG TAB PO SCH (21:00)
[2017-07-06 04:51] LABS: #Eosinphils 0.3 thou/uL (0.0-0.7); #Lymphocytes 3.4 thou/uL (1.20-3.40); #Monocytes 0.6 thou/uL (0.11-0.59); #Neutrophils 3.4 thou/uL (1.40-6.50); %Basophils 0.3 % (0.0-1.0); %Eosinophils 3.6 % (0.0-10.0); %Lymphocytes 44.4 % (21.0-51.0); %Monocytes 7.2 % (0.0-10.0); %Neutrophils 44.5 % (42.0-75.0); Hemoglobin 12.7 g/dL (12.0-16.0); Mean Corpuscular HGB CONC 33.9 g/dL (32.0-36.0); Mean Corpuscular Hemoglobin 29.2 pg (27.0-31.0); Mean Corpuscular Volume 86.1 fl (81.0-99.0); Mean Platelet Volume 6.5 fL (7.4-10.4); Platelet Count 235 thou/uL (130-400); RBC Distribution Width 13.5 % (11.5-14.5); Red Blood Cell (RBC) Count 4.34 mill/uL (4.20-5.40); White Blood Cell (WBC) Count 7.7 thou/uL (4.8-10.8)
[2017-07-06 04:57] LABS: Anion Gap 8 mmol/L (10-20); BUN (Urea Nitrogen) 11 mg/dL (7.0-18.7); Calc. Creatinine Clearance 211 mL/min (70-130); Carbon Dioxide 22 mmol/L (22-29); Cardiac Risk 5.4 (Less than 4.5); Chloride 109 mmol/L (98-107); Cholesterol 226 mg/dl (< 200 Desired); Estimated GFR-MDRD Greater than 90; Glucose 101 mg/dL (70-105); HDL Cholesterol 42 mg/dL (>60 Neg Risk); LDL Cholesterol, Calculated 161 mg/dL; Potassium 3.7 mmol/L (3.5-5.1); Sodium 135 mmol/L (136-145); Triglycerides 114 mg/dL (Less than 150)
--- NOTE | 2017-07-06 06:08 | PDOC.FM ---
- Subjective Subjective: Aroldo Hawk seen at bedside this morning. Denies any acute events overnight. Denies any active chest pain and she did not experience any chest pain during the first portion of her stress test yesterday. She is scheduled for the 2nd portion of her stress this morning. Denies any complaints. - Objective MAR Reviewed: Yes Vital Signs & Weight: Vital Signs (12 hours) Temp Pulse Resp BP Pulse Ox 07/06/17 02:12 65 16 97 07/05/17 23:22 64 12 99 07/05/17 20:00 97.7 F 64 12 07/05/17 19:52 97.7 F 80 16 120/84 97 Weight Weight 130.181 kg I&O: 07/04/17 07/05/17 07/06/17 06:59 06:59 06:59 Intake Total 350 252 Output Total 750 Balance -400 252 Result Diagrams: 07/06/17 04:22 07/06/17 04:22 Phys Exam - Physical Examination Constitutional: NAD HEENT: moist MMs, sclera anicteric Neck: no JVD, supple, full ROM Respiratory: no wheezing, no rales, no rhonchi, clear to auscultation bilateral Cardiovascular: RRR, no significant murmur Gastrointestinal: soft, non-tender, no distention Musculoskeletal: no edema, pulses present Neurological: non-focal, normal sensation, moves all 4 limbs Psychiatric: normal affect, A&O x 3 Skin: no rash, normal turgor Dx/Plan (1) Aortic stenosis Code(s): I35.0 - NONRHEUMATIC AORTIC (VALVE) STENOSIS Status: Acute (2) Cervical radiculopathy Code(s): M54.12 - RADICULOPATHY, CERVICAL REGION Status: Acute (3) Chest pain, atypical Code(s): R07.89 - OTHER CHEST PAIN Status: Acute (4) GERD (gastroesophageal reflux disease) Code(s): K21.9 - GASTRO-ESOPHAGEAL REFLUX DISEASE WITHOUT ESOPHAGITIS Status: Acute (5) HIV (human immunodeficiency virus infection) Status: Acute (6) HTN (hypertension) Code(s): I10 - ESSENTIAL (PRIMARY) HYPERTENSION Status: Acute (7) DEBORAH (obstructive sleep apnea) Code(s): G47.33 - OBSTRUCTIVE SLEEP APNEA (ADULT) (PEDIATRIC) Status: Acute - Plan Plan: (1) Atypical chest pain: - Pt reports central chest pain that is reproducible with palpation of epigastric region. She does have radiation of pain down the left arm; however, upon further questioning she reports the pain is similar to episodes in the past related to her cervical radiculopathy. - Heart score 2 and troponins are negative. - H/o moderate and had most recent stress and cardiac cath done in 2016 which was normal - Treat pain with GI cocktail and IV pepcid X1. Morphine was given in ED in addition to zofan and IVF. Negative CT-A. - resting portion of stress test this morning - results of study will will determine dispo (2) GERD: - s/s likely related to GERD. GI cocktail and pepcid IV X1. Daily protonix. - noted decreased appetitie and associated nausea with eating (3) Cervical radiculopathy: - Pt reports s/s on left arm are similar to prior episodes. - This is likely cause of her mimicking symptoms. Stable, monitor. (4) DEBORAH: - Nightly CPAP (5) Aortic stenosis: - Stable, am stress. (6)HTN: - Cont home meds. Hold bb and ccb for am stress. Given body habitus likely 2 day stress needed. (7) HIV: pt does not want family knowing about her diagnosis. Stable on ARRT
[2017-07-06] MEDS ORDERED: Lorazepam 2 MG/ML VIAL SLOW IVP SCH (08:15)
[2017-07-06] MEDS: Pregabalin 50 MG CAP PO SCH ×2 (08:22→14:53)
[2017-07-06] MEDS: AcetaZOLAMIDE 250 MG TAB PO SCH (08:22)
--- NOTE | 2017-07-06 13:33 | NM ---
NUCLEAR MEDICINE CARDIAC MYOCARDIAL PERFUSION SPECT EJECTION FRACTION STUDY WALL MOTION CINE: Date: 07/06/17 HISTORY: 42-year-old female with history of hypertension and aortic stenosis, presents with chest pain. TECHNIQUE: Number of days: 2 Rest study: Tc99m sestamibi (Cardiolite) dose: 31 mCi Pharmacologic stress: Lexiscan dose: 0.4 mg Stress study: Tc99m sestamibi (Cardiolite) dose: 33 mCi Because of claustrophobia, the attenuation correction CT was not performed. FINDINGS: CARDIAC (MYOCARDIAL PERFUSION) SPECT There is a small to moderate sized perfusion fixed defect at the inferolateral wall, extending to inv olve the apex. No reversible defect is identified. No chamber dilation. EJECTION FRACTION STUDY EF = 59% WALL MOTION CINE No focal wall motion abnormality identified. IMPRESSION: 1. Evidence for infarction/scar in the apicoinferolateral region. 2. No reversible ischemia identified. PAMELA Morfin POS: [facility]
[2017-07-06 15:40] VITALS: BP 126/81; TEMP 97.6
--- NOTE | 2017-07-06 17:21 | EKG ---
Test Reason : CHEST PAIN Blood Pressure : / mmHG Vent. Rate : 090 BPM Atrial Rate : 090 BPM P-R Int : 148 ms QRS Dur : 078 ms QT Int : 368 ms P-R-T Axes : 031 014 029 degrees QTc Int : 450 ms Normal sinus rhythm Normal ECG Confirmed by CARSON GARCIA ([id number]), industrial editor JAMES MARINELLI ([id number]) on 07/06/2017 5:21:06 PM Referred By: NATHALIA GARCIA Confirmed By:CARSON GARCIA
--- NOTE | 2017-07-06 19:52 | CON ---
DATE OF CONSULTATION: 07/05/2017 INDICATION FOR PROCEDURE: This 42-year-old morbidly obese female with a history of chest pain and ao rtic valve sclerosis. She has undergone a repeat ER visits. She has been seen in the ER multiple vi sits for chest pain as well as some shortness of breath. She does have sleep apnea. She wears a CPA P mask at night and sometimes during the day. She has had multiple complaints. She has upcoming maria antonia k surgery. She has cervical radiculopathy, lumbar radiculopathy and multiple other medical problems, which include the lower extremity weakness, swelling, palpitations and DJD. She was seen previousl y in 2016 and had a stress test, which also was abnormal. Underwent cardiac catheterization, which s howed normal coronary arteries and approximately 10 mmHg gradient across the aortic valve. By echoca rdiogram, the aortic valve did appear to be more stenotic previously, but there was no significant gr adient as when the patient underwent cardiac catheterization and she has no other significant abnorma lities. Ejection fraction is about 70% by cardiac catheterization in 2016. She was last seen in the office by Dr. Michel in 2017 in August, less than a year ago, and had been doing relatively well at that time. She does have hypertension and dyslipidemia. By echocardiogram, has always remained with a normal ejection fraction. In 2016, her stress test did show decreased tracer activity in the ante rior wall suggestive of ischemia or breast artifact and most likely, this is breast artifact. At thi s time, the ischemia appears to be a different area, but most likely this is also artifact and may be due to diaphragmatic attenuation. PAST MEDICAL HISTORY: I have reviewed the records and would agree with the notes already dictated by the central hospital practice resident. SOCIAL HISTORY: I have reviewed the records and would agree with the notes already dictated by the [facility]. REVIEW OF SYSTEMS: I have reviewed the records and would agree with the notes already dictated by [facility]. PHYSICAL EXAMINATION: GENERAL: Reveals a morbidly obese female, who is in no acute distress at this time. She is alert an d oriented. VITAL SIGNS: Stable. HEENT: Shows the head to be normocephalic and atraumatic. Carotid pulses are present. There were n o significant bruits. CHEST: Clear to auscultation without any rales, rhonchi or wheezing. CARDIOVASCULAR: Exam reveals a regular rate and rhythm. She has a very soft systolic murmur of the aortic area, but does not appear to be significant. ABDOMEN: Morbidly obese, cannot palpate any masses or tenderness. EXTREMITIES: Showed no significant clubbing, cyanosis or edema. NEUROLOGIC: The patient appears to be intact. SKIN: Warm and dry. LABORATORY: Also unremarkable. There is no indication of myocardial infarction. Renal function is normal. Creatinine 0.96. There is no evidence of significant anemia. Her hemoglobin was 11.9, whic h is borderline, but otherwise unremarkable. IMPRESSION: 1. Probable noncardiac chest pain with history of normal coronary arteries in 2016, is unlikely she would develop any significant coronary artery disease in that amount of time that would cause signifi cant chest discomfort. 2. Mild aortic valve sclerosis. This will need to be followed on a routine basis. She should see Pily Michel on a yearly basis for evaluation of the aortic valve. Eventually, she may need to underg o aortic valve replacement, but at this time, the valve appears to be stable. 3. Chronic back pain with radiculopathy. She used to undergo surgical correction. She should be a reasonable candidate to proceed with her surgery. Her worst problem may be due to her sleep apnea an d pulmonary problems due to her morbid obesity. Thank you very much for I was asked to see this patient, but at this time from a cardiac standpoint, I believe she is stable.
--- NOTE | 2017-07-06 21:57 | DIS-2 ---
DATE OF ADMISSION: 07/04/2017 DATE OF DISCHARGE: 07/06/2017 ADMITTING ATTENDING: Liliana Doran MD DISCHARGE ATTENDING: Alek Philippe MD RESIDENT: Mack Geller MD CONSULTATIONS: Cardiology, Dr. Damian Lyons on 07/06/2017. PROCEDURES: 1. Chest x-ray on 07/04/2017. Impression: No acute intrathoracic abnormality. 2. CT of the chest on 07/04/2017. Impression: No segmental pulmonary arterial filling defect. No acute inflammatory process in the chest. 3. Cardiolite stress test on 07/04/2017 and 07/05/2017. Ejection fraction of 59%. There is a small -to-moderate sized perfusion fixed defect at the inferior lateral wall extending to involve the apex. No reversible defect is identified. No chamber dilation. No focal wall motion abnormality. Impre ssion was evidence for infarction/scar in the apical inferior lateral region. No reversible ischemia identified. PRIMARY DIAGNOSIS: Atypical chest pain. SECONDARY DIAGNOSES: 1. Hypertension. 2. Aortic stenosis. 3. Gastroesophageal reflux disease. 4. Cervical radiculopathy. 5. Obstructive sleep apnea. 6. Human immunodeficiency virus. DISCHARGE MEDICATIONS: Resume all home medications includin. Pregabalin 50 mg one cap p.o. t.i.d. 2. Allopurinol 100 mg one tab p.o. at bedtime. 3. Topiramate 50 mg one tab p.o. at bedtime. 4. Potassium chloride 10 mEq one tab p.o. at bedtime. 5. Diamox 250 mg one tab p.o. b.i.d. 6. vitamin one tab p.o. at bedtime. 7. Aspirin 81 mg p.o. at bedtime. 8. Metoprolol tartrate 50 mg p.o. b.i.d. 9. Dolutegravir sodium 50 mg tablet one tab p.o. at bedtime. 10. Vitamin D 1000 units p.o. at bedtime. 11. Nifedipine 60 mg p.o. b.i.d. 12. Emtricitabine/tenofovir alafenamide one tab p.o. at bedtime. 13. Thiamine HCL 50 mg p.o. q.a.m. New home medication: Pantoprazole 40 mg p.o. daily. HISTORY OF PRESENT ILLNESS AND HOSPITAL COURSE: Aroldo Hawk is a 42-year-old female with past m edical history of hypertension, obstructive sleep apnea, aortic stenosis, HIV, cervical radiculopathy , and GERD, who was sent from clinic, [facility], for concerns of unstable angina. The pat ient reports chest pain started earlier in the day and she had associated left arm pain with radiatio n to the left arm and associated nausea. She did report feeling a bit flushed. On further questioni ng, she has had persistent nausea over the last week with decreased appetite and feeling sick without food. She also states that the left arm pain is similar to feelings of radiculopathy in the past. Morphine relieves symptoms. Denies fever, chills, sweats, shortness of breath on admission. Given m orphine, Zofran, and 1 liter NS in the ED. The patient had negative chest x-ray and negative CTA. T he patient's EKG showed normal sinus rhythm, no ST-T wave changes. The patient was admitted for atyp ical chest pain. The patient had 2-day stress, which results were as above. Cardiology was consulte d after stress test results and cleared the patient for discharge on 07/06/2017 with instructions to follow up with the patient's competitive intelligence manager, Dr. Michel. Cardiology also thought that source of the pain was low suspicion for cardiac in origin. The patient was discharged with p.o. Protonix. Her pa in was well controlled throughout her admission. She denied any chest pain for the last 2 days while in the hospital. Cardiology also was able to obtain records of 2016 heart catheterization, which wa s clear. DISPOSITION: Stable. The patient should do well if she continues to take PPI and follows up with ca rdiologist as well as PCP. DISCHARGE INSTRUCTIONS: 1. Location: Home. 2. Diet: Heart healthy. 3. Activity: As tolerated. 4. Followup: With primary care provider as well as Dr. Michel with cardiology sometime within the next 1-2 weeks.
== END 2017-07-06 17:59 | disposition home or self-care (01) ==
LOC: ERS 17:13 → 2SW 20:10
PROVIDERS: ADMIT Family Medicine; ATTEND Family Medicine
DX: R07.89 Other chest pain (principal); I10 Essential (primary) hypertension; G47.33 Obstructive sleep apnea (adult) (pediatric); M54.12 Radiculopathy, cervical region; K21.9 Gastro-esophageal reflux disease without esophagitis; J45.909 Unspecified asthma, uncomplicated; I35.0 Nonrheumatic aortic (valve) stenosis; I35.8 Other nonrheumatic aortic valve disorders; E66.01 Morbid (severe) obesity due to excess calories; Z68.43 Body mass index [BMI] 50.0-59.9, adult; Z21 Asymptomatic human immunodeficiency virus [HIV] infection status; Z79.82 Long term (current) use of aspirin; Z79.899 Other long term (current) drug therapy; Z88.8 Allergy status to other drugs, medicaments and biological substances; Z99.89 Dependence on other enabling machines and devices
CPT/HCPCS: 71045; 71275; 78452; 80048 ×2; 80061 ×2; 82550; 82553; 82962; 83690; 83880; 84484 ×3; 85025 ×2; 85379; 93005; 93017; 94660 ×2; 94760 ×2; 96361; 96374; 96375; 96376 ×2; 97139; 99285; A9500; G0378; 36415; 36416; 80053; 84443; J2060; J2270; J2785; Q0162; S0028

== ENCOUNTER 2017-07-10 08:09 | Day surgery (SDC) | payer MEDICARE, MEDICAID ==
[2017-07-09 10:46] VITALS: BMI 48.2
--- NOTE | 2017-07-09 22:39 | HP ---
HISTORY OF PRESENT ILLNESS: Ms. Hawk is known to us for previous evaluations of back pain and lower extremity pain, who presents now with worsening right S1 pain. She was brought an MRI on disc from [facility] that reveals a right-sided calcified disk herniation at L5 that matche s her symptoms quite well. She has treated this conservatively across multiple modalities, but is re filomena to pursue surgery if we deem possibility. PAST MEDICAL HISTORY: Significant for fibromyalgia, hypertension, chronic migraines. PAST SURGICAL HISTORY: and herniorrhaphy x2, previous back surgery, tonsillectomy, adenoid ectomy, tubal ligation. CURRENT MEDICATIONS: Acetazolamide, allopurinol, Ambien, amitriptyline, amlodipine, clonazepam, Latu da, metoprolol, Imitrex, hydrochlorothiazide, and Nexium. PHYSICAL EXAMINATION: The patient is alert and oriented x3. Gait is antalgic. She has a positive r ight straight leg raise. Lower extremity motor exam is normal. ASSESSMENT: Lumbar radiculopathy. PLAN: Dr. Castillo met with the patient, reviewed imaging and advocated for a right L5 decompression. He explained to the patient the risks, benefits, and alternatives to the procedure. The patient expr essed understanding and would like to move forward with surgery as discussed. I do believe the patie nt is mentally competent and capable of making medical decisions for herself and we will move forward with surgery as planned. Carlos Alberto Nascimento PA-C, dictating for Dr. Castillo.
[2017-07-10] MEDS ORDERED: CEFAZOLIN/Water 2 GM/20 ML SYRINGE ONE ×2 (08:38→14:02)
[2017-07-10] MEDS ORDERED: Fentanyl 100 MCG/2 ML VIAL ONE ×3 (09:50→12:37)
[2017-07-10] MEDS ORDERED: Midazolam HCl 2 mg/2 ml Vial ONE (09:50)
[2017-07-10] MEDS ORDERED: Norepinephrine 4 MG/4 ML VIAL ONE (10:02)
[2017-07-10] MEDS ORDERED: Bupivacaine HCl 0.5%/Epinephrine 1:200,000/PF 30 ml Vial ONE (10:06)
[2017-07-10] MEDS ORDERED: Thrombin 5000 UNITS/5 ML VIAL ONE (10:06)
--- NOTE | 2017-07-10 11:55 | OP ---
DATE OF PROCEDURE: 07/10/2017 SURGEON: Dr. Greg Castillo OCCUPATIONAL THERAPY SPECIALIST: None. INDICATION: Pain. DIAGNOSIS: Lumbar radiculopathy. PROCEDURE: Right L5 decompression, right L5 hemilaminectomy and medial facetectomy. ANESTHESIA: General. TECHNIQUE: The patient was brought into the operating room and placed under general anesthesia. She was flipped from a supine to a prone position on the operating room table. A linear incision was pl anned over the L5 segment. After prepping and draping and after an appropriate operative pause, the incision was created. The soft tissues were swept right of midline. A self-retaining retractor was placed in the wound for optimal exposure. After confirming the appropriate level with C-arm fluorosc opy, a high-speed cutting drill bit as well as 2, 3 and 4 mm Kerrisons were used to perform a laminec edwin extending along the inferior aspect of L5 and superior aspect of S1. The laminectomy was extend ed laterally to encompass the medial aspect of facet joint until the lateral recesses were well decom pressed at L5 on the right. The wound was then irrigated. Hemostasis was maintained throughout. Th e wound was then closed in anatomic layers and a pressure dressing was applied. There were no known procedural complications.
[2017-07-10] MEDS ORDERED: Promethazine HCl 25 MG/ML VIAL ONE (11:57)
[2017-07-10] MEDS ORDERED: Meperidine HCl/PF 25 MG/ML VIAL ONE (12:38)
[2017-07-10] MEDS ORDERED: PROPOFOL 200 MG/20 ML VIAL ONE (12:43)
[2017-07-10] MEDS ORDERED: Lidocaine 1% PF 5 ML VIAL ONE (12:43)
[2017-07-10] MEDS ORDERED: Esmolol 100 MG/10 ML VIAL ONE (12:43)
[2017-07-10] MEDS ORDERED: Morphine 4 MG/ML VIAL ONE (13:19)
== END 2017-07-10 14:35 | disposition home or self-care (01) ==
LOC: SDC 08:09
PROVIDERS: ATTEND Neurological Surgery
PROC: 01NB0ZZ Release Lumbar Nerve, Open Approach (ICD-10-PCS; principal; 2017-07-10)
DX: M54.16 Radiculopathy, lumbar region (principal); I10 Essential (primary) hypertension; M79.7 Fibromyalgia; G43.909 Migraine, unspecified, not intractable, without status migrainosus; Z88.8 Allergy status to other drugs, medicaments and biological substances; Z79.899 Other long term (current) drug therapy
CPT/HCPCS: 76001; 96374; J0670; J2175; J2250; J2270; J2550; J3010

== ENCOUNTER 2017-09-04 21:38 | Emergency (ER) | payer MEDICARE, MEDICAID ==
[2017-09-04 23:25] LABS: Bilirubin Negative (Negative); Blood, Urine Negative (Negative); Clarity CLEAR (Clear); Glucose, Urine (Dipstick) Negative (Negative); Leukocyte Trace (Negative); Nitrite Negative (Negative); Protein, Urine (Dipstick) Negative (Neg-Trace); Specific Gravity, Urine 1.005 (1.002-1.036); Urobilinogen 0.2 mg/dL (0.2-1.0)
[2017-09-04 23:27] LABS: Bacteria/HPF None Seen HPF (None Seen); Hyaline Casts/LPF 0-3 HYALINE CAST LPF (0-3 Hyaline); Pathc Cast-AUWi Flag 0.14 (0-2.49); RBC/HPF 0-3 HPF (0-3); Squamous Epithelial 0-3 HPF (0-3); WBC/HPF 0-3 HPF (0-3)
[2017-09-04 23:35] LABS: #Basophils 0.1 thou/uL (0.0-0.2); #Eosinphils 0.1 thou/uL (0.0-0.7); #Lymphocytes 2.7 thou/uL (1.20-3.40); #Monocytes 0.4 thou/uL (0.11-0.59); #Neutrophils 6.3 thou/uL (1.40-6.50); %Basophils 0.5 % (0.0-1.0); %Eosinophils 1.5 % (0.0-10.0); %Lymphocytes 28.4 % (21.0-51.0); %Monocytes 4.3 % (0.0-10.0); %Neutrophils 65.4 % (42.0-75.0); Hemoglobin 12.8 g/dL (12.0-16.0); Mean Corpuscular HGB CONC 34.7 g/dL (32.0-36.0); Mean Corpuscular Hemoglobin 29.6 pg (27.0-31.0); Mean Corpuscular Volume 85.3 fL (78.0-98.0); Mean Platelet Volume 6.7 fL (7.4-10.4); Platelet Count 221 thou/uL (130-400); RBC Distribution Width 12.5 % (11.5-14.5); Red Blood Cell (RBC) Count 4.34 mill/uL (4.20-5.40); White Blood Cell (WBC) Count 9.7 thou/uL (4.8-10.8)
--- NOTE | 2017-09-04 23:58 | RAD ---
PORTABLE AP CHEST X-RAY 09/04/17 HISTORY: Chest pain and heart palpitations. COMPARISON: 07/04/17 FINDINGS: The cardiac silhouette is magnified by projection. Pulmonary vasculature is within normal limits. The lungs remain clear. There has been no interval change from the prior exam. IMPRESSION: No acute cardiopulmonary process. POS: [facility]
[2017-09-04 23:59] LABS: CKMB 0.6 ng/mL (0-6.6); Troponin I Less than 0.010 ng/mL (< 0.028)
[2017-09-05] MEDS ORDERED: Ondansetron ODT 4 MG TAB ONE (00:04)
--- NOTE | 2017-09-08 01:01 | EKG ---
Test Reason : Blood Pressure : / mmHG Vent. Rate : 081 BPM Atrial Rate : 081 BPM P-R Int : 154 ms QRS Dur : 080 ms QT Int : 406 ms P-R-T Axes : 028 002 034 degrees QTc Int : 471 ms Normal sinus rhythm Minimal voltage criteria for LVH, may be normal variant Borderline ECG Confirmed by MICHELE MORRIS DO ([id number]), editorial assistant TIMOTHY COATES ([id number]) on 09/08/2017 1:01:15 AM Referred By: Confirmed By:MICHELE MORRIS DO
== END 2017-09-05 01:15 | disposition home or self-care (01) ==
LOC: ERS 21:38
DX: R00.2 Palpitations (principal); I25.10 Atherosclerotic heart disease of native coronary artery without angina pectoris; I38 Endocarditis, valve unspecified; I10 Essential (primary) hypertension; G47.30 Sleep apnea, unspecified; Z86.73 Personal history of transient ischemic attack (TIA), and cerebral infarction without residual deficits; B20 Human immunodeficiency virus [HIV] disease; G43.909 Migraine, unspecified, not intractable, without status migrainosus; F31.9 Bipolar disorder, unspecified; F41.9 Anxiety disorder, unspecified; Z79.899 Other long term (current) drug therapy; Z79.82 Long term (current) use of aspirin
CPT/HCPCS: 71045; 81003; 81015; 82553; 83880; 84484; 85025; 93005; 96360; Q0162

== ENCOUNTER 2017-12-02 09:38 | Outpatient (CLI) | payer MEDICARE, MEDICAID ==
[2017-12-02 10:13] LABS: #Eosinphils 0.1 thou/uL (0.0-0.7); #Lymphocytes 2.7 thou/uL (1.20-3.40); #Monocytes 0.4 thou/uL (0.11-0.59); #Neutrophils 3.1 thou/uL (1.40-6.50); %Basophils 0.3 % (0.0-1.0); %Eosinophils 1.5 % (0.0-10.0); %Lymphocytes 43.1 % (21.0-51.0); %Neutrophils 49.1 % (42.0-75.0); Hemoglobin 12.5 g/dL (12.0-16.0); Mean Corpuscular HGB CONC 32.6 g/dL (32.0-36.0); Mean Corpuscular Hemoglobin 27.8 pg (27.0-31.0); Mean Corpuscular Volume 85.3 fL (78.0-98.0); Mean Platelet Volume 7.2 fL (7.4-10.4); Platelet Count 204 thou/uL (130-400); RBC Distribution Width 12.2 % (11.5-14.5); White Blood Cell (WBC) Count 6.2 thou/uL (4.8-10.8)
[2017-12-02 10:17] LABS: PTT 25.1 SEC (22.9-36.1); Prothrombin Time 12.9 SEC (12.0-14.7)
[2017-12-02 10:22] LABS: ALT (SGPT) 11 U/L (8-55); AST (SGOT) 14 U/L (5-34); Albumin 3.8 g/dL (3.5-5.0); Alkaline Phosphatase 177 U/L (40-150); Anion Gap 7 mmol/L (10-20); BUN (Urea Nitrogen) 9 mg/dL (7.0-18.7); Bilirubin, Total 0.5 mg/dL (0.2-1.2); Calc. Creatinine Clearance 0 mL/min (70-130); Calcium 8.8 mg/dL (7.8-10.44); Carbon Dioxide 26 mmol/L (22-29); Chloride 109 mmol/L (98-107); Cholesterol 243 mg/dl (< 200 Desired); Estimated GFR-MDRD Greater than 90; Globulin 4.5 g/dL (2.4-3.5); Glucose 96 mg/dL (70-105); HDL Cholesterol 49 mg/dL (>60 Neg Risk); LDL Cholesterol, Calculated 177 mg/dL; Potassium 4.4 mmol/L (3.5-5.1); Protein, Total 8.3 g/dL (6.0-8.3); Sodium 138 mmol/L (136-145); Triglycerides 87 mg/dL (Less than 150)
== END 2017-12-02 09:39 | disposition home or self-care (01) ==
LOC: LABBT 09:38
PROVIDERS: ATTEND Internal Medicine Cardiovascular Disease
DX: Z01.812 Encounter for preprocedural laboratory examination (principal); R07.9 Chest pain, unspecified
CPT/HCPCS: 80053; 80061; 85025; 85610; 85730

== ENCOUNTER 2017-12-04 10:22 | Day surgery (SDC) | payer MEDICARE, MEDICAID ==
[2017-12-02 10:02] VITALS: BMI 47.4
[~2017-12-04 10:22] MED LIST changes: -ISOVUE-370 76%-LOCM 1 ML ONE; +Iopamidol 370 76% 100 ML VIAL ONE
[2017-12-04] MEDS ORDERED: Lidocaine 1% (PF) 30 ML VIAL ONE (11:59)
[2017-12-04] MEDS ORDERED: Verapamil 5 MG/2 ML VIAL ONE (12:32)
[2017-12-04] MEDS ORDERED: Heparin 10,000 UNITS/1 ML VIAL ONE (12:32)
[2017-12-04] MEDS ORDERED: Nitroglycerin 100MG/250ML BOT 250 ML ONE (12:32)
[2017-12-04] MEDS ORDERED: Midazolam HCl 2 mg/2 ml Vial ONE (12:36)
[2017-12-04] MEDS ORDERED: Fentanyl 100 MCG/2 ML VIAL ONE (12:37)
[2017-12-04] MEDS ORDERED: traMADol HCl 50 MG TAB ONE (13:23)
== END 2017-12-04 16:23 | disposition home or self-care (01) ==
LOC: CCL 10:22
PROVIDERS: ATTEND Internal Medicine Cardiovascular Disease
PROC: 4A023N7 Measurement of Cardiac Sampling and Pressure, Left Heart, Percutaneous Approach (ICD-10-PCS; principal; 2017-12-04)
PROC: B2111ZZ Fluoroscopy of Multiple Coronary Arteries using Low Osmolar Contrast (ICD-10-PCS; 2017-12-04)
DX: I11.0 Hypertensive heart disease with heart failure (principal); I50.9 Heart failure, unspecified; R07.89 Other chest pain; I42.9 Cardiomyopathy, unspecified; I35.0 Nonrheumatic aortic (valve) stenosis; E78.5 Hyperlipidemia, unspecified; G43.909 Migraine, unspecified, not intractable, without status migrainosus; F32.9 Major depressive disorder, single episode, unspecified; E78.00 Pure hypercholesterolemia, unspecified; E66.01 Morbid (severe) obesity due to excess calories; Z68.42 Body mass index [BMI] 45.0-49.9, adult; Z21 Asymptomatic human immunodeficiency virus [HIV] infection status; Z88.8 Allergy status to other drugs, medicaments and biological substances; Z79.82 Long term (current) use of aspirin; Z79.899 Other long term (current) drug therapy
CPT/HCPCS: 93454; C1887; 99152; J1644; J2001; J2250; J3010

== ENCOUNTER 2018-02-05 11:27 | Emergency (ER) | payer MEDICARE, MEDICAID ==
[2018-02-05 12:06] LABS: #Basophils 0.1 thou/uL (0.0-0.2); #Eosinphils 0.1 thou/uL (0.0-0.7); #Lymphocytes 2.9 thou/uL (1.20-3.40); #Monocytes 0.5 thou/uL (0.11-0.59); #Neutrophils 3.5 thou/uL (1.40-6.50); %Basophils 0.8 % (0.0-1.0); %Eosinophils 1.6 % (0.0-10.0); %Lymphocytes 40.9 % (21.0-51.0); %Monocytes 6.6 % (0.0-10.0); Hemoglobin 12.7 g/dL (12.0-16.0); Mean Corpuscular HGB CONC 32.8 g/dL (32.0-36.0); Mean Corpuscular Hemoglobin 27.4 pg (27.0-31.0); Mean Corpuscular Volume 83.5 fL (78.0-98.0); Mean Platelet Volume 6.6 fL (7.4-10.4); Platelet Count 249 thou/uL (130-400); RBC Distribution Width 12.7 % (11.5-14.5); Red Blood Cell (RBC) Count 4.64 mill/uL (4.20-5.40)
--- NOTE | 2018-02-05 12:20 | RAD ---
PORTABLE UPRIGHT FRONTAL CHEST RADIOGRAPH: 02/05/2018 HISTORY: Palpitations with dizziness, chest pain, and left arm numbness. COMPARISON: 09/04/2017 FINDINGS: The heart and mediastinal contours are stable. No pneumothorax or pleural fluid. No focal consolida tion or alveolar edema. IMPRESSION: No acute findings. POS: [facility]
[2018-02-05 12:31] LABS: ALT (SGPT) 12 U/L (8-55); AST (SGOT) 20 U/L (5-34); Albumin 3.9 g/dL (3.5-5.0); Alkaline Phosphatase 178 U/L (40-150); Anion Gap 11 mmol/L (10-20); BUN (Urea Nitrogen) 15 mg/dL (7.0-18.7); Bilirubin, Total 0.3 mg/dL (0.2-1.2); CK (CPK) 68 U/L (29-168); Calc. Creatinine Clearance 0 mL/min (70-130); Calcium 9.1 mg/dL (7.8-10.44); Carbon Dioxide 22 mmol/L (22-29); Chloride 104 mmol/L (98-107); Estimated GFR-MDRD Greater than 90; Globulin 6.3 g/dL (2.4-3.5); Glucose 134 mg/dL (70-105); Lipase 21 U/L (8-78); Magnesium 2.2 mg/dL (1.6-2.6); Potassium 3.9 mmol/L (3.5-5.1); Protein, Total 10.2 g/dL (6.0-8.3); Sodium 133 mmol/L (136-145)
--- NOTE | 2018-02-05 14:04 | CT ---
CT ANGIOGRAM THORAX WITH IV CONTRAST AND 3D RECONSTRUCTIONS: Date: 02/05/18 HISTORY: Chest pain. Heart palpitations. COMPARISON: 07/04/17. FINDINGS: No definitive filling defect is seen within the pulmonary arteries to suggest a pulmonary embolus. The thoracic aorta is normal in caliber without evidence of an aortic dissection. Mediastinal structures have a normal appearance. There are mildly prominent nonspecific bilateral axillary lymph nodes, also noted on prior exam, and were also seen on a CT thorax in 2016. There is minimal dependent atelectasis bilaterally. Stable area of scarring is again seen in the kim on of the lingula. Lungs are otherwise clear. Visualized upper abdomen demonstrates a normal CT appearance for phase of imaging. IMPRESSION: No definite evidence of a pulmonary embolus. POS: [facility]
== END 2018-02-05 13:50 | disposition home or self-care (01) ==
LOC: ERS 11:27
DX: R00.2 Palpitations (principal); R11.0 Nausea; I25.10 Atherosclerotic heart disease of native coronary artery without angina pectoris; I25.2 Old myocardial infarction; I10 Essential (primary) hypertension; G47.30 Sleep apnea, unspecified; B20 Human immunodeficiency virus [HIV] disease; F31.9 Bipolar disorder, unspecified; F43.10 Post-traumatic stress disorder, unspecified; F41.9 Anxiety disorder, unspecified; Z79.82 Long term (current) use of aspirin; Z79.899 Other long term (current) drug therapy
CPT/HCPCS: 71045; 71275; 80053; 82550; 83690; 83735; 84484; 85025; 93005

== ENCOUNTER 2018-02-11 06:56 | Emergency (ER) | payer MEDICARE, MEDICAID ==
[2018-02-11] MEDS ORDERED: Meclizine HCl 25 MG TAB ONE (07:21)
[2018-02-11] MEDS ORDERED: Metoclopramide HCl 10 MG/2 ML VIAL ONE (07:21)
[2018-02-11 07:35] LABS: #Basophils 0.1 thou/uL (0.0-0.2); #Eosinphils 0.2 thou/uL (0.0-0.7); #Lymphocytes 2.8 thou/uL (1.20-3.40); #Monocytes 0.5 thou/uL (0.11-0.59); #Neutrophils 3.3 thou/uL (1.40-6.50); %Basophils 1.3 % (0.0-1.0); %Eosinophils 2.9 % (0.0-10.0); %Lymphocytes 40.3 % (21.0-51.0); %Monocytes 7.8 % (0.0-10.0); %Neutrophils 47.8 % (42.0-75.0); Hemoglobin 11.9 g/dL (12.0-16.0); Mean Corpuscular HGB CONC 33.5 g/dL (32.0-36.0); Mean Corpuscular Volume 83.4 fL (78.0-98.0); Mean Platelet Volume 7.1 fL (7.4-10.4); Platelet Count 218 thou/uL (130-400); RBC Distribution Width 12.5 % (11.5-14.5); Red Blood Cell (RBC) Count 4.26 mill/uL (4.20-5.40); White Blood Cell (WBC) Count 6.9 thou/uL (4.8-10.8)
[2018-02-11 07:41] LABS: BHCG - Serum Negative (NEGATIVE); Pregs Control Background? CLEAR/WHITE (CLR/WHITE); Pregs Control Bar Appear? YES (CONTROL BAR)
[2018-02-11 07:58] LABS: ALT (SGPT) 10 U/L (8-55); AST (SGOT) 16 U/L (5-34); Albumin 3.5 g/dL (3.5-5.0); Alkaline Phosphatase 164 U/L (40-150); Anion Gap 10 mmol/L (10-20); BUN (Urea Nitrogen) 8 mg/dL (7.0-18.7); Bilirubin, Total 0.3 mg/dL (0.2-1.2); Calc. Creatinine Clearance 0 mL/min (70-130); Calcium 8.8 mg/dL (7.8-10.44); Carbon Dioxide 24 mmol/L (22-29); Chloride 104 mmol/L (98-107); Estimated GFR-MDRD Greater than 90; Globulin 5.6 g/dL (2.4-3.5); Glucose 100 mg/dL (70-105); Potassium 3.8 mmol/L (3.5-5.1); Protein, Total 9.1 g/dL (6.0-8.3); Sodium 134 mmol/L (136-145)
--- NOTE | 2018-02-11 08:07 | CT ---
CT BRAIN WITHOUT CONTRAST: Date: 02/11/18 HISTORY: Dizziness and headache. FINDINGS: Comparison made with exam of 07/10/16. No evidence of infarct, hemorrhage, midline shift, or abnormal extra-axial fluid collections are seen . The ventricular size is normal and the basilar cisterns are patent. The bony calvarium is intact. T he visualized paranasal sinuses and mastoid air cells are well aerated. IMPRESSION: No CT evidence of acute intracranial process. POS: [facility]
== END 2018-02-11 08:35 | disposition home or self-care (01) ==
LOC: ERS 06:56
DX: J32.9 Chronic sinusitis, unspecified (principal); I25.2 Old myocardial infarction; I25.10 Atherosclerotic heart disease of native coronary artery without angina pectoris; I10 Essential (primary) hypertension; G47.30 Sleep apnea, unspecified; E55.9 Vitamin D deficiency, unspecified; G43.909 Migraine, unspecified, not intractable, without status migrainosus; F31.9 Bipolar disorder, unspecified; F43.10 Post-traumatic stress disorder, unspecified; F41.9 Anxiety disorder, unspecified; Z86.73 Personal history of transient ischemic attack (TIA), and cerebral infarction without residual deficits; Z79.82 Long term (current) use of aspirin; Z79.899 Other long term (current) drug therapy
CPT/HCPCS: 36415; 70450; 80053; 84484; 84703; 85025; 87804; 93005; 96365; J2765

== ENCOUNTER 2018-04-20 23:08 | Inpatient (IN) | payer MEDICARE, MEDICAID ==
[~2018-04-20 23:08] MED LIST changes: +ISOVUE-370 76%-LOCM 1 ML ONE; -Iopamidol 370 76% 100 ML VIAL ONE
[2018-04-20 23:29] LABS: Bilirubin Negative (Negative); Blood, Urine Trace (Negative); Clarity CLEAR (Clear); Glucose, Urine (Dipstick) Negative (Negative); Leukocyte Negative (Negative); Nitrite Negative (Negative); Pregnancy Test - Urine (BHCG) Negative (Negative); Pregu Control Background? CLEAR/WHITE (CLR/WHITE); Pregu Control Bar Appear? YES (CONTROL BAR); Protein, Urine (Dipstick) 30 mg/dL (Neg-Trace); Specific Gravity 1.006 (1.002-1.036); Specific Gravity, Urine 1.006 (1.002-1.036); pH, Urine 7.5 (5.0-9.0)
[2018-04-20 23:30] LABS: Bacteria/HPF None Seen HPF (None Seen); Hyaline Casts/LPF 0-3 HYALINE CAST LPF (0-3 Hyaline); Squamous Epithelial None Seen HPF (0-3); WBC/HPF None Seen HPF (0-3)
[2018-04-20] MEDS ORDERED: Morphine 4 MG/ML VIAL ONE (23:34)
[2018-04-20] MEDS ORDERED: Ondansetron PF 4 MG/2 ML Vial ONE (23:35)
[2018-04-20 23:41] LABS: #Lymphocytes 1.7 thou/uL (1.20-3.40); #Monocytes 0.3 thou/uL (0.11-0.59); #Neutrophils 7.5 thou/uL (1.40-6.50); %Basophils 0.1 % (0.0-1.0); %Eosinophils 0.4 % (0.0-10.0); %Monocytes 2.7 % (0.0-10.0); %Neutrophils 78.7 % (42.0-75.0); Hemoglobin 13.8 g/dL (12.0-16.0); Mean Corpuscular HGB CONC 33.1 g/dL (32.0-36.0); Mean Corpuscular Hemoglobin 28.7 pg (27.0-31.0); Mean Corpuscular Volume 86.7 fL (78.0-98.0); Mean Platelet Volume 7.4 fL (7.4-10.4); Platelet Count 248 thou/uL (130-400); Red Blood Cell (RBC) Count 4.79 mill/uL (4.20-5.40); White Blood Cell (WBC) Count 9.5 thou/uL (4.8-10.8)
--- NOTE | 2018-04-20 23:50 | RAD ---
AP VIEW CHEST: 04/20/2018 HISTORY: Epigastric pain. Abdominal pain. COMPARISON: 02/05/2018 FINDINGS: AP view chest demonstrates the lungs to be well aerated. No evidence of active intrathoracic disease is seen. No evidence of effusions, pneumonia, or pneumothorax is seen. IMPRESSION: Unremarkable anterior-posterior view chest. POS: [facility]
[2018-04-21 00:25] LABS: ALT (SGPT) 92 U/L (8-55); AST (SGOT) 125 U/L (5-34); Albumin 4.1 g/dL (3.5-5.0); Alkaline Phosphatase 321 U/L (40-150); Anion Gap 15 mmol/L (10-20); BUN (Urea Nitrogen) 8 mg/dL (7.0-18.7); Bilirubin, Total 3.1 mg/dL (0.2-1.2); Calc. Creatinine Clearance 0 mL/min (70-130); Calcium 9.6 mg/dL (7.8-10.44); Carbon Dioxide 25 mmol/L (22-29); Chloride 104 mmol/L (98-107); Estimated GFR-MDRD Greater than 90; Globulin 4.8 g/dL (2.4-3.5); Glucose 116 mg/dL (70-105); Lipase 6445 U/L (8-78); Potassium 3.8 mmol/L (3.5-5.1); Protein, Total 8.9 g/dL (6.0-8.3); Sodium 140 mmol/L (136-145)
[2018-04-21] MEDS ORDERED: Ondansetron PF 4 MG/2 ML Vial ONE (00:36)
[2018-04-21] MEDS ORDERED: Morphine 4 MG/ML VIAL ONE (00:36)
[2018-04-21 00:54] LABS: Cardiac Risk 4.9 (Less than 4.5)
[2018-04-21] MEDS ORDERED: HYDROmorphone 0.5 MG/0.5 ML SYRINGE ONE (01:22)
--- NOTE | 2018-04-21 02:39 | PDOC.FPRHP ---
- History of Present Illness Chief Complaint: abd pain, vomiting History of Present Illness: 43 yo F presents with abdominal pain. Started 6pm in the evening -sharp, epigastric radiating to back in addition to spreading all over abdomen. Associated with nausea, emesis, no po tolerance. Due to pain worsening patient came to ED. She denies diarrhea and is able to pass gas. She endorses some RUQ postprandial pain going on for the past several months, but has not sought medication attn for it. ED Course: Abd US/CTAbd: GB wall thickening, CBD dilation Elevated lipase and LFTs s/p 2L NS & LR, zosyn 4.5 g, morphine & dilaudid for pain Gen surg & GI consulted - Allergies/Adverse Reactions Allergies Allergy/AdvReac Type Severity Reaction Status Date / Time lisinopril Allergy facial Verified 12/02/17 10:03 swelling - Home Medications Medication Instructions Recorded Confirmed Type Allopurinol 100 mg PO HS 01/08/17 04/21/18 History Aspirin [Ecotrin Low Strength] 81 mg PO QAM 01/08/17 04/21/18 History Dolutegravir Sodium [Tivicay] 1 tab PO QAM 01/08/17 04/21/18 History Emtricitabine/Tenofov Alafenam 1 tab PO QAM 01/08/17 04/21/18 History [Descovy 200-25 mg Tablet] Metoprolol Tartrate 50 tab PO TID 01/08/17 04/21/18 History NIFEdipine [Nifedipine ER] 60 tab PO BID PRN 01/08/17 04/21/18 History Pnv No.95/Ferrous Fum/Folic AC 1 tab PO HS 01/08/17 04/21/18 History [ Multivitamin Tablet] Potassium Chloride 10 meq PO HS 01/08/17 04/21/18 History Topiramate 50 mg PO HS 01/08/17 04/21/18 History Famotidine [Pepcid] 20 mg PO BID 04/21/18 04/21/18 History Fluticasone Propionate [Flonase 1 spray EA NARE DAILY 04/21/18 04/21/18 History Nasal [place]] Metoclopramide HCl [Reglan] 10 mg PO TID 04/21/18 04/21/18 History buPROPion [Wellbutrin] 150 mg PO BID 04/21/18 04/21/18 History hydrOXYzine HCl [Hydroxyzine HCl] 25 mg PO TID 04/21/18 04/21/18 History - History PMHx:HIV, HTN, DEBORAH, aortic stenosis, GERD, asthma, migraines, fibromyalgia, CAD PSHx: umbilical hernia repair x2, CSx, laminectomy, BTL FHx: HTN, DM2, HLD Social: denies t/e/d - Review of Systems General: reports: weight/appetite/sleep changes. denies: fever/chills Eyes: denies: eye pain, vision changes ENT: denies: nasal congestion, rhinorrhea Respiratory: reports: shortness of breath (with abd pain). denies: cough, congestion Cardiovascular: denies: chest pain, edema, orthopnea Gastrointestinal: reports: nausea, vomiting, abdominal pain. denies: diarrhea, constipation, GI bleeding Skin: denies: rashes, lesions Musculoskeletal: denies: pain, tenderness, stiffness, arthritis/arthralgias Neurological: reports: weakness. denies: numbness, syncope, seizure - Vital signs BP: [168/124] HR: [74] RR: [18] Tmax: [98] Pox: [94]% on [RA] Wt: [130kg] - Physical Exam Constitutional: NAD, awake, alert and oriented -Constitutional: obese HEENT: normocephalic and atraumatic, PERRLA, EOMI, no scleral icterus, grossly normal vision, MMM Neck: supple, FROM, trachea midline Chest: no lesions Heart: RRR, pulses present Lungs: CTAB, no respiratory distress, no wheezing Abdomen: bowel sounds present -Abdomen: diffusely tender more so in epigastric region mild guarding, no rebound Musculoskeletal: normal structure, ROM grossly normal Neurological: no focal deficit, CN II-XII intact Skin: no rash/lesions, good turgor, capillary refill <2 seconds Psychiatric: normal mood and affect, good judgment and insight, intact recent and remote memory FMR H&P: Results - Labs Result Diagrams: 04/21/18 09:30 04/21/18 09:30 Lab results: WBC 9.5 thou/uL (4.8-10.8) 04/20/18 23:31 Hgb 13.8 g/dL (12.0-16.0) 04/20/18 23:31 Hct 41.6 % (36.0-47.0) 04/20/18 23:31 MCV 86.7 fL (78.0-98.0) 04/20/18 23:31 Plt Count 248 thou/uL (130-400) 04/20/18 23:31 Neutrophils % 78.7 % (42.0-75.0) H 04/20/18 23:31 Sodium 140 mmol/L (136-145) 04/20/18 23:31 Potassium 3.8 mmol/L (3.5-5.1) 04/20/18 23:31 Chloride 104 mmol/L (98-107) 04/20/18 23:31 Carbon Dioxide 25 mmol/L (22-29) 04/20/18 23:31 BUN 8 mg/dL (7.0-18.7) 04/20/18 23:31 Creatinine 0.73 mg/dL (0.6-1.1) 04/20/18 23:31 Glucose 116 mg/dL (70-105) H 04/20/18 23:31 Lactic Acid 0.9 mmol/L (0.5-2.2) 04/20/18 23:31 Calcium 9.6 mg/dL (7.8-10.44) 04/20/18 23:31 Total Bilirubin 3.1 mg/dL (0.2-1.2) H 04/20/18 23:31 AST 125 U/L (5-34) H 04/20/18 23:31 ALT 92 U/L (8-55) H 04/20/18 23:31 Alkaline Phosphatase 321 U/L (40-150) H 04/20/18 23:31 B-Natriuretic Peptide 350.9 pg/mL (0-100) H 04/20/18 23:31 Serum Total Protein 8.9 g/dL (6.0-8.3) H 04/20/18 23:31 Albumin 4.1 g/dL (3.5-5.0) 04/20/18 23:31 Lipase 6445 U/L (8-78) H 04/20/18 23:31 Urine Ketones Negative mg/dL (Negative) 04/20/18 23:15 Urine Blood Trace (Negative) H 04/20/18 23:15 Urine Nitrite Negative (Negative) 04/20/18 23:15 Ur Leukocyte Esterase Negative (Negative) 04/20/18 23:15 Urine RBC 4-6 HPF (0-3) 04/20/18 23:15 Urine WBC None Seen HPF (0-3) 04/20/18 23:15 Ur Squamous Epith Cells None Seen HPF (0-3) 04/20/18 23:15 Urine Bacteria None Seen HPF (None Seen) 04/20/18 23:15 - Radiology Interpretation Chest x-ray Status: image reviewed by me, report reviewed by me Additional comment: no acute cardiopulmonary processes US - abdomen Status: image reviewed by me Additional comment: GB wall thickening CBD dilated +murphys CT scan - abdomen Status: pending FMR H&P: A/P - Problem List (1) Acute gallstone pancreatitis Current Visit: Yes Status: Acute Code(s): K85.10 - BILIARY ACUTE PANCREATITIS WITHOUT NECROSIS OR INFECTION (2) Common bile duct calculi Current Visit: Yes Status: Acute Code(s): K80.50 - CALCULUS OF BILE DUCT W/ O CHOLANGITIS OR CHOLECYST W/O OBST (3) GERD (gastroesophageal reflux disease) Current Visit: No Status: Acute Code(s): K21.9 - GASTRO-ESOPHAGEAL REFLUX DISEASE WITHOUT ESOPHAGITIS (4) HIV (human immunodeficiency virus infection) Current Visit: No Status: Acute (5) HTN (hypertension) Current Visit: No Status: Acute Code(s): I10 - ESSENTIAL (PRIMARY) HYPERTENSION (6) DEBORAH (obstructive sleep apnea) Current Visit: No Status: Acute Code(s): G47.33 - OBSTRUCTIVE SLEEP APNEA ( ADULT) (PEDIATRIC) (7) Morbid obesity Current Visit: Yes Status: Acute Code(s): E66.01 - MORBID (SEVERE) OBESITY DUE TO EXCESS CALORIES (8) Migraines Current Visit: Yes Status: Acute Code(s): G43.909 - MIGRAINE, UNSP, NOT INTRACTABLE, WITHOUT STATUS MIGRAINOSUS (9) Fibromyalgia Current Visit: Yes Status: Acute (10) Aortic stenosis Current Visit: No Status: Acute Code(s): I35.0 - NONRHEUMATIC AORTIC (VALVE ) STENOSIS - Plan Acute gallstone pancreatitis -Lipase 3x ULN at 6445, elevated LFTs with bilirubin 3.1 -ABD US with GB wall thickening, CBD dilation at 7mm (per ED report) -s/p 2L fluids, zosyn in ED -Gen surg & GI consulted from ED, aware of patient -Patient with no fever, white count, does not meet full criteria for acute cholangitis. Prognosis is good with mortality rate <1% per Sorento's criteria -NPO, LR at 200cc/hr, appreciate gen surg & GI recs -toradol and morphine for pain -zofran PRN nausea Concern for choledocolithiasis and cholecystitis -Imaging findings above -Gen surg & GI on board Hypertensive urgency -BPs 170/105 in ED -Has not been able to take home po meds due to nausea -PRN hydralazine while NPO HIV -Follows w/ Dr. Mayer, last seen 6 mos ago w/ CD count 900 per pt report -Will recheck CD count -Continue home tivicay cHTN -PRN hydralazine -can resume home meds after surgery CAD -continue ASA after surgery Aortic stenosis -MD aware, continue to monitor GERD -protonix Morbid obesity -counselor supervisor on life style modification dvt ppx: lovenox gi ppx: protonix FMR H&P: Upper Level - Pertinent history Pt i s a 43 y/o F with HIV, , and fibromyalgia presenting to ED for N/V abdominal pain. Started Saturday and worsening until it reached a threshold where she decided to come to ED. Took TUMS without relief. Abdominal pain is epigastric and sharp in nature. Worse after eating. Denies fever, chills, SOB, chest pain. Was given dilaudid in ED with pain relief. Abx started and IVF running. Pt also presented hypertensive and states she has not been able to keep her medications down for several days. - Pertinent findings PE GEN: Mild distress CARDIO: RRR, no MRG LUNGS: CTAB, no wheezing ABD: TTP diffusely worse in upper quadrants. PSYCH: appropriate mood NEURO: NO focal weakness, strength 5/5, eomi LIPASE: 6445 Bilirubin, Total 3.1 Alkaline Phosphatase 321 AST (SGOT) 125 ALT (SGPT) 92 - CBD dialated 7mm. GB wall thickening. - Plan Date/Time: 04/21/18 0239 IJose Miguel, have evaluated this patient and agree with findings/plan as outlined by technology development intern resident. Pertinent changes/additions are listed here. # Acute Gallstone Pancreatitis - Will make NPO and GI has been consulted for likely ERCP. Continue IVF. Dilaudid for pain control. # R/o Acute Calculous Cholecystitis: US reveals GB wall thickening present along with bile duct dilation of 7mm. No noted leukocytosis or fever, but pt on empiric abx. Surgery consult pending. Monitor for signs of infection, but currently does not meed criteria for Cholangitis. Noted transamnitis and elevated bilirubin at 3.1. # Hypertensive Urgency - Unable to tolerate PO. Will order PRN IV control. Resume home medications when able to tolerate PRN. # HIV - On ART. Will check CD4/VL. # Cervical Radiculopathy No acute issues # Aortic Stenosis No acute issues, no murmur auscultated # Morbid Obesity - BMI # GERD No acute issues DVT PPX: SCD's Addendum - Attending - Attending Attestation Date/Time: 04/21/18 0408 I personally evaluated the patient and discussed the management with Dr. Jean Baptiste. I agree with the History, Examination, Assessment and Plan documented above with any addition or exceptions noted below. The patient presented with epigastric abdominal pain radiating to her back as well as ruq abdominal pain after eating. The patient has an elevated lipase, ast/alt and tbili. Gallbladder wall thickening and dilated CBD noted on imaging. We are consulting GI and general surgery. Pt has HIV but follows regularly with Dr. Mayer. Will treat with IV zosyn , npo, pain control.
[2018-04-21] MEDS ORDERED: Sodium Chloride 0.9% 100 ML ONE (02:48)
[2018-04-21] MEDS ORDERED: Piperacillin/Tazobactam 4.5 GM VIAL ONE (02:48)
[2018-04-21] MEDS ORDERED: Metoprolol Tartrate 5 MG/5 ML VIAL ONE ×2 (05:14)
[2018-04-21] MEDS ORDERED: hydrALAZINE 20 MG/ML VIAL SLOW IVP PRN (05:18)
[2018-04-21 06:39] VITALS: BMI 47.3
[2018-04-21] MEDS: Lactated Ringer's 1,000 ML IV SCH ×4 (06:50→21:17)
[2018-04-21] MEDS: Morphine 4 MG/ML VIAL SLOW IVP PRN ×2 (06:51→12:55)
[2018-04-21] MEDS: Pantoprazole 40 MG VIAL IVP SCH (08:14)
[2018-04-21] MEDS ORDERED: Morphine 2 MG/ML SYRINGE SLOW IVP SCH (08:15)
--- NOTE | 2018-04-21 08:15 | ULT ---
PRELIMINARY REPORT/[facility]/EMERGENTY AFTER-HOURS PROCEDURE US Abdomen Limited, Right Upper Quadrant EXAM DATE/TIME: 04/21/2018 1:07 AM CLINICAL HISTORY: 43 years old, female; Pain; Other: Ruq pain, elevated lfts and lipase TECHNIQUE: Real-time ultrasound of the abdomen with image documentation. Examination was focused on the right up per quadrant. COMPARISON: CT Abdomen Pelvis W Con 04/20/2018 11:52 PM FINDINGS: Liver: The liver is unremarkable. Gallbladder: There are echogenic calculi in the gallbladder lumen consistent with cholelithiasis and there is abnormal gallbladder wall thickening measuring 6 mm thickness with a small quantity of peric holecystic fluid and a positive sonographic Palacios sign consistent with acute cholecystitis. Common bile duct: The common bile duct is mildly prominent measuring nearly 7 mm diameter but no visi ble choledocholithiasis to the extent visualized. Pancreas: The pancreas appears unremarkable, the extensive fat stranding seen on the recent CT is not clearly evident on this exam, however ultrasound is less sensitive for diagnosis of acute pancreatitis. Right kidney: No right renal calculi or hydronephrosis. IMPRESSION: 1. There are echogenic calculi in the gallbladder lumen consistent with cholelithiasis and there is a bnormal gallbladder wall thickening measuring 6 mm thickness with a small quantity of pericholecystic fluid and a positive sonographic Palacios sign consistent with acute cholecystitis. 2. The common bile duct is mildly prominent measuring nearly 7 mm diameter but no visible choledochol ithiasis to the extent visualized. 3. The pancreas appears unremarkable, the extensive fat stranding seen on the recent CT is not clearl y evident on this exam, however ultrasound is less sensitive for diagnosis of acute pancreatitis. Thank you for allowing us to participate in the care of your patient. Dictated and Authenticated by: Jeff Lundberg MD 04/21/2018 1:32 AM Central Time ([place] & [place]) FINAL REPORT ULTRASOUND GALLBLADDER RIGHT UPPER QUADRANT: Date: 04/21/18 HISTORY: Pancreatitis. COMPARISON: Gallbladder ultrasound from 2014. FINDINGS/IMPRESSION: Findings and impression are concordant with the preliminary report by Arielle. The gallbladder wall thic kening may be reactive due to the acute pancreatitis. ERCP or MRCP may be beneficial in this patient with a mildly dilated common bile duct. The gallbladder is not significantly distended. POS: JUANCHO
--- NOTE | 2018-04-21 08:17 | CT ---
PRELIMINARY REPORT/[facility]/EMERGENTY AFTER-HOURS PROCEDURE CT Abdomen and Pelvis With Contrast EXAM DATE/TIME: 04/20/2018 11:52 PM CLINICAL HISTORY: 43 years old, female; Pain; Abdominal pain; Generalized; Patient HX: C/O abdominal pain, nausea, vomi ting since yesterday. States unable to tolerate po TECHNIQUE: Axial computed tomography images of the abdomen and pelvis with intravenous contrast. Coronal reforma tted images were created and reviewed. COMPARISON: No relevant prior studies available. FINDINGS: Lower thorax: There is minimal bibasilar atelectatic change or scarring. ABDOMEN: Liver: There is mild hepatomegaly. Gallbladder and bile ducts: There may be mild gallbladder wall thickening but no abnormal distention and no visible calculi. Pancreas: There is edematous change of the pancreas with peripancreatic fat stranding and nonloculate d fluid consistent with acute pancreatitis. Spleen: Normal. No splenomegaly. Adrenals: Normal. No mass. Kidneys and ureters: Normal. No hydronephrosis. Stomach and bowel: There is mild colonic diverticulosis without evidence for acute diverticulitis. Appendix: The appendix is unremarkable and seen best on axial image 62 of series 2. PELVIS: Bladder: Unremarkable as visualized. Reproductive: There are postoperative changes of hysterectomy. There is a possible hemorrhagic cyst w ithin a dependent hematocrit level in the left ovary measuring 3.6 cm. Followup is not necessary. ABDOMEN and PELVIS: Intraperitoneal space: Normal. No free air. No significant fluid collection. Bones/joints: No acute fracture. No dislocation. Soft tissues: There is mild diastases of the rectus abdominal sheath. There is a small fat filled umb ilical hernia without signs of incarceration. Vasculature: There mild atherosclerotic aortic and iliac artery calcifications. Lymph nodes: Normal. No enlarged lymph nodes. IMPRESSION: 1. There is edematous change of the pancreas with peripancreatic fat stranding and nonloculated fluid consistent with acute pancreatitis. 2. There is mild colonic diverticulosis without evidence for acute diverticulitis. 3. There is a possible hemorrhagic cyst within a dependent hematocrit level in the left ovary measuri ng 3.6 cm. Followup is not necessary. Thank you for allowing us to participate in the care of your patient. Dictated and Authenticated by: Jeff Lundberg MD 04/21/2018 12:53 AM Central Time ([place] & [place]) FINAL REPORT CT ABDOMEN AND PELVIS WITH CONTRAST: Date: 04/20/18 HISTORY: Epigastric pain. Abdominal pain. Nausea and vomiting. COMPARISON: CT abdomen and pelvis from 2017. FINDINGS/IMPRESSION: Findings and impression are concordant with the preliminary report by Arielle. Common bile duct size is upper limits of normal. POS: JUANCHO
[2018-04-21 09:46] LABS: #Eosinphils 0.1 thou/uL (0.0-0.7); #Lymphocytes 1.4 thou/uL (1.20-3.40); #Monocytes 0.3 thou/uL (0.11-0.59); #Neutrophils 4.5 thou/uL (1.40-6.50); %Basophils 0.4 % (0.0-1.0); %Lymphocytes 21.7 % (21.0-51.0); %Monocytes 5.1 % (0.0-10.0); %Neutrophils 71.7 % (42.0-75.0); Mean Corpuscular HGB CONC 32.8 g/dL (32.0-36.0); Mean Corpuscular Hemoglobin 28.3 pg (27.0-31.0); Mean Corpuscular Volume 86.1 fL (78.0-98.0); Mean Platelet Volume 7.1 fL (7.4-10.4); Platelet Count 227 thou/uL (130-400); RBC Distribution Width 12.9 % (11.5-14.5); Red Blood Cell (RBC) Count 4.25 mill/uL (4.20-5.40); White Blood Cell (WBC) Count 6.2 thou/uL (4.8-10.8)
[2018-04-21] MEDS: Morphine 2 MG/ML SYRINGE SLOW IVP PRN ×2 (10:01→15:30)
[2018-04-21] MEDS: Piperacillin/Tazobactam 4.5 GM in Sodium Chloride 0.9% 100 ML IVPB SCH ×3 (10:01→22:37)
[2018-04-21 10:02] LABS: ALT (SGPT) 79 U/L (8-55); AST (SGOT) 94 U/L (5-34); Albumin 3.4 g/dL (3.5-5.0); Alkaline Phosphatase 286 U/L (40-150); Anion Gap 10 mmol/L (10-20); BUN (Urea Nitrogen) 7 mg/dL (7.0-18.7); Bilirubin, Total 2.1 mg/dL (0.2-1.2); Calc. Creatinine Clearance 198 mL/min (70-130); Carbon Dioxide 29 mmol/L (22-29); Chloride 105 mmol/L (98-107); Estimated GFR-MDRD Greater than 90; Globulin 4.4 g/dL (2.4-3.5); Glucose 104 mg/dL (70-105); Potassium 3.3 mmol/L (3.5-5.1); Protein, Total 7.8 g/dL (6.0-8.3); Sodium 141 mmol/L (136-145)
[2018-04-21] MEDS: Ondansetron PF 4 MG/2 ML Vial IVP PRN ×2 (10:09→22:57)
[2018-04-21] MEDS: Ketorolac Tromethamine 30 MG/ML VIAL IVP PRN ×2 (15:29→21:12)
[2018-04-21] MEDS: Morphine 4 MG/ML VIAL SLOW IVP SCH ×2 (17:28→21:11)
--- NOTE | 2018-04-21 20:07 | CON ---
DATE OF CONSULTATION: 04/21/2018 CHIEF COMPLAINT: Abdominal pain. HISTORY OF PRESENT ILLNESS: Ms. Hawk is a 43-year-old woman who had pretty abrupt onset cramping, pressure-like epigastric pain yesterday around 6:00 p.m. The pain became severe and radiated directly through to her back. She tried drinking some milk later on because she was thinking that the pain was due to gas and acid. She then started vomiting. She vomited several times through the night, this was Saturday night, two nights ago. The next morning she went to [facility], but again had ongoing worsening pain and ultimately by yesterday evening came onto the emergency room for further care. She has had no diarrhea, constipation, or blood in the stool. No fever associated with this. She was found to have signs of acute pancreatitis by elevated lipase and findings on CT scan. Ultrasound showed gallstones in the gallbladder with a 7-mm bile duct. GI was consulted to evaluate for gallstone pancreatitis. She has no fever, but she still has tenderness throughout her abdomen. Her pain is better today, but still ongoing. PAST MEDICAL HISTORY: HIV, anxiety, hypertension, obstructive sleep apnea, aortic stenosis, gastroesophageal reflux, asthma, migraine headaches, fibromyalgia, coronary artery disease. PAST SURGICAL HISTORY: Umbilical hernia repair, laminectomy, , bilateral tubal ligation, upper and lower endoscopy by Dr. Rajan who has followed her in the past. FAMILY HISTORY: Negative for GI malignancy or pancreas cancer. SOCIAL HISTORY: No alcohol, tobacco, or drugs. ALLERGIES: LISINOPRIL. MEDICATIONS: Prior to admission include; 1. Allopurinol. 2. Aspirin. 3. Acetazolamide. 4. Tivicay. 5. Emtricitabine/tenofovir (Descovy). 6. Metoprolol. 7. Nifedipine. 8. vitamin. 9. Potassium. 10. Lyrica. 11. Topiramate. 12. Thiamin. 13. Isosorbide dinitrate with hydrochlorothiazide. REVIEW OF SYSTEMS: Negative x10 systems reviewed except as stated in the history of present illness. PHYSICAL EXAMINATION: VITAL SIGNS: Temperature 97.8, pulse is 69, blood pressure 173/104. GENERAL: She is in no acute distress. Alert and oriented x3. HEENT: Eyes have no scleral icterus. Oropharynx is clear without lesions. No cervical or supraclavicular lymphadenopathy. LUNGS: Clear to auscultation bilaterally. HEART: Regular rate and rhythm without murmur. ABDOMEN: Soft. She has diffuse tenderness without guarding. Bowel sounds are present. EXTREMITIES: No lower extremity edema. LABORATORY DATA: Creatinine 0.76. Bilirubin 2.1, down from 3.1 last night, AST 94, down from 125 last night, ALT 79, which is down from 92 last night, alkaline phosphatase 286, down from 321 last night. Triglycerides 103. Lipase is 1276 today, down from 6445 last night. White blood cell count 6.2, hemoglobin 12.0, down from 13.8 after hydration, platelets 227. IMPRESSION: 1. Gallstone pancreatitis. 2. Human immunodeficiency virus. 3. Morbid obesity. 4. Hypertension. RECOMMENDATIONS: 1. We will follow the trend of her liver tests tomorrow morning. If they fail to continue to improve or they increase, then ERCP will likely be the next step. If her liver tests continue to improve tomorrow morning, then she can likely undergo cholecystectomy with intraoperative cholangiogram and if a stone is confirmed by IOC, then ERCP can follow. 2. She has received IV fluids. She appears to have received 1 L of normal saline and 1 L of lactated Ringer's in the ER last night. Her hemoglobin has come down with rehydration appropriately. She is hypertensive and has a history of aortic stenosis. She has been receiving sodium chloride at 200 mL an hour. We can likely back this off now that she has been rehydrated to 150 mL/h. 3. Await results of her liver tests tomorrow morning. 4. Continue IV fluids. 5. General Surgery has also evaluated the patient. 6. She can likely receive some ice chips in the meantime. Job ID: [id number]
[2018-04-21] MEDS ORDERED: Prevnar 13-Val Conj/PF 0.5 ML SYRINGE IM ONE (21:00)
[2018-04-21] MEDS ORDERED: diphenhydrAMINE 25 MG CAP PO SCH (23:00)
--- NOTE | 2018-04-22 00:47 | CON ---
DATE OF CONSULTATION: REASON FOR CONSULT: Gallstone pancreatitis. HISTORY OF PRESENT ILLNESS: Ms. Hawk is a 43-year-old woman who came to the emergency room with severe epigastric pain radiating to her back since the evening prior to her admission. She states that she has had some epigastric and right upper quadrant pain intermittently for the past 3 months after eating, but that has always gone away on its own and she has not sought any treatment. She thought that her pain was just due to gas, but the pain was unrelenting and so, she came to the emergency room. She states that she has severe nausea and vomiting, and was unable to keep down any food or water. Workup in the emergency room showed gallstones with some wall thickening and common bile duct dilatation. Her lipase and LFTs were both elevated. She was started on antibiotics and given pain medication and antiemetics. She states that the pain medications she received in the emergency room helps the pain, but morphine has not been effective since her admission to the floor. She feels that her pain level is about the same as it was last night. PAST MEDICAL HISTORY: HIV, hypertension, aortic stenosis, asthma, coronary artery disease, fibromyalgia, migraines, reflux, and sleep apnea. PAST SURGICAL HISTORY: Umbilical hernia repair as an infant and again recently as an adult. She states that there is no mesh. She has also had , laminectomy, and tubal ligation. FAMILY HISTORY: Hypertension, diabetes, and hyperlipidemia. She does not use tobacco, alcohol, or drugs. REVIEW OF SYSTEMS: Negative except per HPI. She has not had fevers, chills, jaundice, or icterus. ALLERGIES: SHE REPORTS AN ALLERGY TO LISINOPRIL, WHICH CAUSES ANGIOEDEMA AND AIRWAY SWELLING. OUTPATIENT MEDICATIONS: Include; 1. Allopurinol. 2. Aspirin. 3. Wellbutrin. 4. Tivicay. 5. Descovy. 6. Pepcid. 7. Flonase. 8. Hydroxyzine. 9. Reglan. 10. Metoprolol. 11. Nifedipine. 12. Multivitamin with iron. 13. Potassium. 14. Topiramate. PHYSICAL EXAMINATION: VITAL SIGNS: The patient has been afebrile since her admission. Heart rate in the 60s to 70s, blood pressure has been normal to elevated. She is maintaining good saturations on room air. GENERAL: Reveals an obese woman, in moderate discomfort. She is not flushed or toxic in appearance. She is not jaundiced or icteric. HEENT: Unremarkable. NECK: Supple without lymphadenopathy or thyroid nodules. HEART: Regular in its rate and rhythm without murmurs, rubs, or gallops. LUNGS: Clear to auscultation bilaterally, although inspiratory effort is poor due to pain with deep inspiration. ABDOMEN: Soft, nondistended. She is very tender to palpation in epigastrium, greater than bilateral upper quadrant, minimally tender in the lower quadrants. EXTREMITIES: Warm and well perfused without edema. NEUROLOGIC: No focal deficits. PSYCHIATRIC: Alert, oriented, and appropriate. LABORATORY DATA: White count is normal, hematocrit 36, and platelets 227. Electrolytes are unremarkable except for a mildly low potassium. Bilirubin is 2.1, which is down somewhat from admission when it was 3.1. AST, ALT, and lipase are elevated, but likewise down from admission, lipase is now [address] of the abdomen and pelvis on admission showed hepatomegaly, gallbladder wall thickening, edema of the pancreas with peripancreatic fat stranding, and a possible hemorrhagic ovarian cyst. Ultrasound showed cholelithiasis and gallbladder wall thickening with some pericholecystic fluid and a mildly prominent common bile duct of 7 mm. ASSESSMENT: Gallstone pancreatitis. PLAN: The patient's LFTs and lipase are diminishing and she may have passed her stone. I am going to give her pancreatitis some more time to resolve. As long as her LFTs and lipase continue to diminish, she will likely undergo laparoscopic cholecystectomy with intraoperative cholangiogram with ERCP to follow if choledocholithiasis is found. If her LFTs rise, then she may require an ERCP first. Job ID: [id number]
[2018-04-22] MEDS: Morphine 4 MG/ML VIAL SLOW IVP SCH ×6 (01:11→21:10)
[2018-04-22] MEDS: Lactated Ringer's 1,000 ML IV SCH ×4 (03:01→20:48)
[2018-04-22] MEDS: Ketorolac Tromethamine 30 MG/ML VIAL IVP PRN ×2 (03:03→10:57)
[2018-04-22] MEDS: Piperacillin/Tazobactam 4.5 GM in Sodium Chloride 0.9% 100 ML IVPB SCH ×4 (04:08→21:10)
[2018-04-22] MEDS: Morphine 2 MG/ML SYRINGE SLOW IVP PRN (04:11)
--- NOTE | 2018-04-22 06:58 | PDOC.FM ---
- Subjective Subjective: Patient reports mild improvement of pain with TESS morphine. Rates it as an 8/10 currently but says it increases to a 10/10 with movement. Denies any fever/ chills or N/V/D. - Objective MAR Reviewed: Yes Vital Signs & Weight: Vital Signs (12 hours) Temp Pulse Resp BP Pulse Ox 04/22/18 04:05 99.1 F 91 20 146/76 H 97 04/21/18 23:30 98.7 F 86 18 138/76 97 04/21/18 19:10 97.9 F 72 20 182/87 H 98 Weight Weight 129.002 kg I&O: 04/20/18 04/21/18 04/22/18 06:59 06:59 06:59 Output Total 450 Balance -450 Result Diagrams: 04/22/18 07:50 04/22/18 07:50 Phys Exam - Physical Examination mild distress 2/2 pain HEENT: moist MMs Neck: supple, full ROM Respiratory: no wheezing, no rales, no rhonchi, clear to auscultation bilateral Cardiovascular: RRR 2/6 systolic murmur heard best a R sternal border Gastrointestinal: soft, no distention, positive bowel sounds TTP, especially in epigastrium and upper abdomen, no guarding or rebound Musculoskeletal: no edema, pulses present Neurological: non-focal, moves all 4 limbs Psychiatric: normal affect, A&O x 3 Skin: no rash, normal turgor Dx/Plan (1) Acute gallstone pancreatitis Code(s): K85.10 - BILIARY ACUTE PANCREATITIS WITHOUT NECROSIS OR INFECTION Status: Acute (2) Common bile duct calculi Code(s): K80.50 - CALCULUS OF BILE DUCT W/O CHOLANGITIS OR CHOLECYST W/O OBST Status: Acute (3) Fibromyalgia Status: Acute (4) Migraines Code(s): G43.909 - MIGRAINE, UNSP, NOT INTRACTABLE, WITHOUT STATUS MIGRAINOSUS Status: Acute (5) Morbid obesity Code(s): E66.01 - MORBID (SEVERE) OBESITY DUE TO EXCESS CALORIES Status: Acute (6) Aortic stenosis Code(s): I35.0 - NONRHEUMATIC AORTIC (VALVE) STENOSIS Status: Acute (7) Cervical radiculopathy Code(s): M54.12 - RADICULOPATHY, CERVICAL REGION Status: Acute (8) GERD (gastroesophageal reflux disease) Code(s): K21.9 - GASTRO-ESOPHAGEAL REFLUX DISEASE WITHOUT ESOPHAGITIS Status: Acute (9) HIV (human immunodeficiency virus infection) Status: Acute (10) HTN (hypertension) Code(s): I10 - ESSENTIAL (PRIMARY) HYPERTENSION Status: Acute (11) DEBORAH (obstructive sleep apnea) Code(s): G47.33 - OBSTRUCTIVE SLEEP APNEA (ADULT) (PEDIATRIC) Status: Acute - Plan Plan: Acute gallstone pancreatitis -Lipase 3x ULN at 6445 on admission. Down to 291 this AM s/p aggressive IVFs overnight and yesterday. LFTs also downtrending. -ABD US with GB wall thickening & CBD dilation at 6mm. CT showed peripancreatic fat stranding & edema consistent w/ pancreatitis. -Gen surg & GI consulted from ED, appreciate recs. -Will continue IVFs w/ LR @ 150mL/hr and IV abx while NPO awaiting surgery. -toradol and morphine for pain -zofran PRN for nausea Concern for choledocolithiasis and cholecystitis -See imaging findings above. -Gen surg & GI on board. Plan for likely lap ignacio &/or intraoperative ERCP today as lipase and LFTs continued to downtrend overnight. Patient not strict NPO awaiting surgery. Hypertensive urgency -BPs 170/105 in ED -Has not been able to take home po meds due to nausea -PRN hydralazine while NPO HIV -Follows w/ Dr. Mayer, last seen 6 mos ago w/ CD43 count 900 per patient. -Will consider rechecking CD4 count -Will continue home tivicay once tolerating PO. cHTN -PRN hydralazine -can resume home meds after surgery CAD -continue ASA after surgery Aortic stenosis -MD aware, will continue to monitor GERD -protonix Morbid obesity -Will classification counselor on life style modification IVFs: LR @ 150mL/hr Abx: Zosyn (3/4) dvt ppx: lovenox gi ppx: protonix Dispo: Lap ignacio today w/ or w/o ERCP. Addendum - Attending - Attending Attestation Date/Time: 04/22/182019 I personally evaluated the patient and discussed the management with Dr. Heath. I agree with the History, Examination, Assessment and Plan documented above with any addition or exceptions noted below. The patient continues to have pain. Her lipase and liver enzymes have improved. She will likely have a lap ignacio.
[2018-04-22 08:05] LABS: #Basophils 0.1 thou/uL (0.0-0.2); #Eosinphils 0.1 thou/uL (0.0-0.7); #Lymphocytes 1.6 thou/uL (1.20-3.40); #Monocytes 0.6 thou/uL (0.11-0.59); #Neutrophils 9.3 thou/uL (1.40-6.50); %Basophils 0.5 % (0.0-1.0); %Eosinophils 0.7 % (0.0-10.0); %Lymphocytes 13.8 % (21.0-51.0); %Monocytes 5.1 % (0.0-10.0); Hemoglobin 11.2 g/dL (12.0-16.0); Mean Corpuscular HGB CONC 33.3 g/dL (32.0-36.0); Mean Corpuscular Hemoglobin 28.7 pg (27.0-31.0); Mean Corpuscular Volume 86.2 fL (78.0-98.0); Mean Platelet Volume 7.1 fL (7.4-10.4); Platelet Count 210 thou/uL (130-400); RBC Distribution Width 12.7 % (11.5-14.5); Red Blood Cell (RBC) Count 3.91 mill/uL (4.20-5.40); White Blood Cell (WBC) Count 11.6 thou/uL (4.8-10.8)
[2018-04-22 08:26] LABS: ALT (SGPT) 58 U/L (8-55); AST (SGOT) 50 U/L (5-34); Albumin 3.3 g/dL (3.5-5.0); Alkaline Phosphatase 245 U/L (40-150); Anion Gap 10 mmol/L (10-20); BUN (Urea Nitrogen) 8 mg/dL (7.0-18.7); Bilirubin, Total 1.4 mg/dL (0.2-1.2); Calc. Creatinine Clearance 198 mL/min (70-130); Calcium 8.5 mg/dL (7.8-10.44); Carbon Dioxide 27 mmol/L (22-29); Chloride 102 mmol/L (98-107); Estimated GFR-MDRD Greater than 90; Globulin 4.2 g/dL (2.4-3.5); Glucose 78 mg/dL (70-105); Lipase 291 U/L (8-78); Potassium 3.4 mmol/L (3.5-5.1); Protein, Total 7.5 g/dL (6.0-8.3); Sodium 136 mmol/L (136-145)
[2018-04-22] MEDS ORDERED: Potassium Chloride 20 MEQ in Premix Bag 1 BAG IVPB SCH (10:00)
[2018-04-22] MEDS: Pantoprazole 40 MG VIAL IVP SCH (10:11)
[2018-04-22] MEDS ORDERED: Esmolol 100 MG/10 ML VIAL ONE (13:09)
[2018-04-22] MEDS ORDERED: Glycopyrrolate 0.2 MG/ML 5 ML SYRINGE ONE (13:09)
[2018-04-22] MEDS ORDERED: Lidocaine 1% PF 5 ML VIAL ONE (13:09)
[2018-04-22] MEDS ORDERED: PROVENTIL INHALER 6.7 G (200 INHALATIONS) ONE (13:09)
[2018-04-22] MEDS ORDERED: PROPOFOL 200 MG/20 ML VIAL ONE (13:09)
[2018-04-22] MEDS ORDERED: Dexamethasone 20 MG/5 ML VIAL ONE (13:09)
[2018-04-22] MEDS ORDERED: Rocuronium Bromide 10 MG/ML (10ML VIAL) ONE (13:09)
[2018-04-22] MEDS ORDERED: Ondansetron PF 4 MG/2 ML Vial ONE (13:09)
--- NOTE | 2018-04-22 15:35 | CON ---
DATE OF CONSULTATION: 04/22/2018 HISTORY: Ms. Hawk is a morbidly obese 43-year-old black female, known to myself from prior laparoscopic ventral hernia repair in 2015. She presented a couple days ago with gallstone pancreatitis. Her pancreatic enzymes have normalized substantially. Her pain is essentially resolved. Her elevated bilirubin has dropped considerably as well. She is afebrile and hemodynamically stable. She is felt to be stable at this time to proceed with laparoscopic cholecystectomy and cholangiogram. I discussed the operation in detail with the patient as well as potential risks. She understands and agrees to proceed with surgery. If she does have evidence of choledocholithiasis and she will require ERCP. Job ID: [id number]
[2018-04-22] MEDS ORDERED: Bupivacaine/Epinephrine 0.25% 30 ML VIAL ONE (15:46)
[2018-04-22] MEDS ORDERED: Iothalamate Meglumine 60% 50 ML VIAL FS ONE (15:46)
[2018-04-22] MEDS ORDERED: Fentanyl 100 MCG/2 ML VIAL ONE ×4 (15:52→19:45)
[2018-04-22] MEDS ORDERED: Albumin 25% 0 ML ONE (17:08)
[2018-04-22] MEDS ORDERED: Albuterol Sulfate HFA (OR ONLY) ONE (17:08)
--- NOTE | 2018-04-22 18:05 | RAD ---
INTRAOPERATIVE CHOLANGIOGRAM: 04/22/18 EXPOSURE: 32 seconds. 9.6 mGy. FINDINGS: Intraoperative cholangiogram was performed. Three images are submitted for interpretation. There is o pacification of a normal appearing intra and extrahepatic biliary system. There is some tapering of t he distal aspect of the common bile duct. Contrast does reflux into the pancreatic duct and opacifies the duodenum. IMPRESSION: Intraoperative fluoroscopic as above. POS: JUANCHO
[2018-04-22] MEDS ORDERED: Promethazine HCl 25 MG/ML VIAL ONE (20:03)
[2018-04-22] MEDS ORDERED: Promethazine HCl 25 MG/ML VIAL SLOW IVP PRN (20:05)
[2018-04-22] MEDS ORDERED: Promethazine HCl 25 MG/ML VIAL IM PRN (20:05)
[2018-04-22] MEDS ORDERED: Ondansetron HCl/PF 4 MG/2 ML Vial IVP PRN (20:05)
[2018-04-23] MEDS: Morphine 4 MG/ML VIAL SLOW IVP SCH ×3 (00:25→07:56)
[2018-04-23] MEDS: Lactated Ringer's 1,000 ML IV SCH ×2 (03:57→07:59)
[2018-04-23] MEDS: Piperacillin/Tazobactam 4.5 GM in Sodium Chloride 0.9% 100 ML IVPB SCH ×2 (03:57→07:55)
[2018-04-23] MEDS ORDERED: NIFEDIPINE PO PRN (06:58)
[2018-04-23 07:10] LABS: #Lymphocytes 1.2 thou/uL (1.20-3.40); #Monocytes 0.8 thou/uL (0.11-0.59); #Neutrophils 12.8 thou/uL (1.40-6.50); %Basophils 0.1 % (0.0-1.0); %Eosinophils 0.1 % (0.0-10.0); %Lymphocytes 8.1 % (21.0-51.0); %Monocytes 5.6 % (0.0-10.0); %Neutrophils 86.2 % (42.0-75.0); Hemoglobin 10.5 g/dL (12.0-16.0); Mean Corpuscular HGB CONC 32.8 g/dL (32.0-36.0); Mean Corpuscular Hemoglobin 28.3 pg (27.0-31.0); Mean Corpuscular Volume 86.4 fL (78.0-98.0); Mean Platelet Volume 6.9 fL (7.4-10.4); Platelet Count 224 thou/uL (130-400); RBC Distribution Width 12.8 % (11.5-14.5); White Blood Cell (WBC) Count 14.8 thou/uL (4.8-10.8)
[2018-04-23] MEDS ORDERED: NIFEdipine XL 60 MG TAB PO PRN ×2 (07:17→07:30)
[2018-04-23 07:28] LABS: ALT (SGPT) 67 U/L (8-55); AST (SGOT) 77 U/L (5-34); Albumin 3.2 g/dL (3.5-5.0); Alkaline Phosphatase 224 U/L (40-150); Anion Gap 10 mmol/L (10-20); BUN (Urea Nitrogen) 9 mg/dL (7.0-18.7); Bilirubin, Total 0.8 mg/dL (0.2-1.2); Calc. Creatinine Clearance 184 mL/min (70-130); Calcium 8.5 mg/dL (7.8-10.44); Carbon Dioxide 26 mmol/L (22-29); Chloride 103 mmol/L (98-107); Estimated GFR-MDRD Greater than 90; Globulin 4.5 g/dL (2.4-3.5); Glucose 127 mg/dL (70-105); Lipase 45 U/L (8-78); Potassium 3.7 mmol/L (3.5-5.1); Protein, Total 7.7 g/dL (6.0-8.3); Sodium 135 mmol/L (136-145)
--- NOTE | 2018-04-23 07:32 | PDOC.FM ---
- Subjective Subjective: Patient states she is in severe pain on exam but is sitting up and much more talkative this AM. Also reports getting up and walking for ~ 20 minutes yesterday. Endorses some nausea but denies any vomiting. Denies any SOB but does endorse PND. States she normally uses a CPAP HS. - Objective MAR Reviewed: Yes Vital Signs & Weight: Vital Signs (12 hours) Temp Pulse Resp BP Pulse Ox 04/23/18 07:18 98.1 F 88 19 149/84 H 97 04/23/18 04:00 98.5 F 82 18 144/89 H 94 L 04/23/18 00:00 98.2 F 89 18 160/102 H 96 04/22/18 21:34 2 L 04/22/18 20:35 98.3 F 83 18 160/82 H 95 Weight Weight 129.002 kg I&O: 04/22/18 04/23/18 04/24/18 06:59 06:59 06:59 Intake Total 2250 Balance 2250 Result Diagrams: 04/23/18 06:55 04/23/18 06:55 Phys Exam - Physical Examination Constitutional: NAD HEENT: moist MMs Neck: supple, full ROM Respiratory: no wheezing, no rales, no rhonchi, clear to auscultation bilateral Cardiovascular: RRR, no significant murmur Gastrointestinal: soft, no distention, positive bowel sounds TTP Musculoskeletal: no edema, pulses present Neurological: non-focal, moves all 4 limbs Psychiatric: normal affect, A&O x 3 Skin: no rash, normal turgor Dx/Plan (1) Acute gallstone pancreatitis Code(s): K85.10 - BILIARY ACUTE PANCREATITIS WITHOUT NECROSIS OR INFECTION Status: Resolved (2) Common bile duct calculi Code(s): K80.50 - CALCULUS OF BILE DUCT W/O CHOLANGITIS OR CHOLECYST W/O OBST Status: Resolved (3) Fibromyalgia Status: Acute (4) Migraines Code(s): G43.909 - MIGRAINE, UNSP, NOT INTRACTABLE, WITHOUT STATUS MIGRAINOSUS Status: Acute (5) Morbid obesity Code(s): E66.01 - MORBID (SEVERE) OBESITY DUE TO EXCESS CALORIES Status: Acute (6) Aortic stenosis Code(s): I35.0 - NONRHEUMATIC AORTIC (VALVE) STENOSIS Status: Acute (7) Cervical radiculopathy Code(s): M54.12 - RADICULOPATHY, CERVICAL REGION Status: Acute (8) GERD (gastroesophageal reflux disease) Code(s): K21.9 - GASTRO-ESOPHAGEAL REFLUX DISEASE WITHOUT ESOPHAGITIS Status: Acute (9) HIV (human immunodeficiency virus infection) Status: Acute (10) HTN (hypertension) Code(s): I10 - ESSENTIAL (PRIMARY) HYPERTENSION Status: Acute (11) DEBORAH (obstructive sleep apnea) Code(s): G47.33 - OBSTRUCTIVE SLEEP APNEA (ADULT) (PEDIATRIC) Status: Chronic - Plan Plan: Acute gallstone pancreatitis -Lipase 3x ULN at 6445 on admission. Down to 291 yesterday s/p aggressive IVFs overnight and yesterday. LFTs also downtrending. -ABD US with GB wall thickening & CBD dilation at 6mm. CT showed peripancreatic fat stranding & edema consistent w/ pancreatitis. -Gen surg & GI consulted from ED. Patient was taken back for lap ignacio & ERCP yesterday. -Will consider de-escalating IVFs as patient increases PO intake. -tramadol, tylenol, and ibuprofen for pain control. -zofran PRN for nausea Concern for choledocolithiasis and cholecystitis -See imaging findings above. -Gen surg & GI on board. Appreciate recs. Post-op day #1 s/p lap ignacio & ERCP. Will slowly advance diet as tolerated. Hypertensive urgency -BPs below urgency range but elevated yesterday while NPO. -Will resume home meds today. HIV -Follows w/ Dr. Mayer, last seen 6 mos ago w/ CD43 count 900 per patient. -Will consider rechecking CD4 count. -Will continue home tivicay & Descovy today. cHTN -Will resume home meds. CAD -Will continue ASA. Aortic stenosis -MD aware, will continue to monitor GERD -prn tums, not currently on meds. Morbid obesity -Will drapery counselor on life style modification DEBORAH on CPAP: - Will order CPAP HS. IVFs: SL Abx: none dvt ppx: lovenox gi ppx: protonix Dispo: Post op day #1 s/p Lap ignacio w/ ERCP. Will await gen surg recs for d/c. Addendum - Attending - Attending Attestation Date/Time: 04/23/18 1251 I personally evaluated the patient and discussed the management with Dr. Heath. I agree with the History, Examination, Assessment and Plan documented above with any addition or exceptions noted below. The patient had her gallbladder removed. The patient is still experiencing pain but it is improving. She is having constipation. Adjusting bowel regimen. Encouraged pt to ambulate.
[2018-04-23] MEDS: Pantoprazole 40 MG VIAL IVP SCH (07:55)
[2018-04-23] MEDS: Isosorbide Dinitrate 20 MG TAB PO SCH ×3 (07:56→20:31)
[2018-04-23] MEDS: hydrALAZINE 25 MG TAB PO SCH ×3 (07:56→20:29)
[2018-04-23] MEDS: hydrOXYzine 25 MG TAB PO SCH ×3 (07:56→20:29)
[2018-04-23] MEDS ORDERED: Morphine 4 MG/ML VIAL SLOW IVP PRN (08:56)
[2018-04-23] MEDS ORDERED: Metoprolol Tartrate 100 MG TAB PO SCH (09:00)
[2018-04-23] MEDS ORDERED: Metoclopramide HCl 10 MG TAB PO SCH (09:00)
[2018-04-23] MEDS ORDERED: Isosorbide Dinitrate 5 MG TAB PO SCH (09:00)
[2018-04-23] MEDS ORDERED: Magnesium Chloride 64 MG TAB PO SCH (09:00)
[2018-04-23] MEDS ORDERED: TENOFOVIR ALAFENAMIDE PO SCH (09:00)
[2018-04-23] MEDS ORDERED: Metoprolol Tartrate 50 MG TAB PO SCH ×2 (09:00)
[2018-04-23] MEDS ORDERED: DOLUTEGRAVIR SODIUM PO SCH ×2 (09:00)
[2018-04-23] MEDS ORDERED: [UNRECOGNIZED DRUG - OTHER] PO SCH (09:00)
[2018-04-23] MEDS ORDERED: EMTRICITABINE PO SCH (09:00)
[2018-04-23] MEDS ORDERED: traMADol HCl 50 MG TAB PO PRN ×2 (09:10)
--- NOTE | 2018-04-23 09:11 | PRG ---
DATE OF SERVICE: 04/23/2018 SUBJECTIVE: Ms. Hawk is on the medical floor this morning. She is complaining of diffuse abdominal pain following her laparoscopic cholecystectomy yesterday. She is tolerating her diet and has not vomited. OBJECTIVE: VITAL SIGNS: She is afebrile. Pulse is 82 to 88 and blood pressure 149/84. GENERAL: She has voided during the night. LUNGS: Clear to auscultation. ABDOMEN: Obese, but soft. Five laparoscopic incisions are healing nicely. She does have diffuse tenderness around the incisions, but her lower abdomen is nontender to palpation. Bowel sounds are present and normoactive. LABORATORY DATA: Her white blood cell count is elevated a little bit of 14.8. This is not unusual after her surgery yesterday. Hemoglobin is more or less stable at 10.5. Chemistries reveal that her lipase is now normal at 45. Her bilirubin is normal at 0.8. Electrolytes are unremarkable. ASSESSMENT: The patient is doing well following laparoscopic cholecystectomy and cholangiogram for gallstone pancreatitis. She is certainly stable for discharge home. She will require a short-term prescription for pain medication at the time of discharge. I would like to see her back in my office in 2 weeks. She may take diet as tolerated. I emphasized the importance of adequate fluid intake to avoid dehydration. Job ID: [id number]
[2018-04-23] MEDS ORDERED: Ondansetron ODT 8 MG TAB SL PRN (09:14)
[2018-04-23] MEDS ORDERED: Magnesium Oxide 400 MG TAB PO SCH ×2 (09:23→09:30)
[2018-04-23] MEDS: Aspirin 81 mg Enteric Coated Tablet PO SCH (09:35)
[2018-04-23] MEDS: Senokot S 8.6-50 MG TAB PO SCH ×2 (09:35→20:29)
[2018-04-23] MEDS: Fluticasone Propionate Nasal Spray 16 gm Bottle NASAL SCH (10:46)
[2018-04-23] MEDS: Acetaminophen 500 MG TAB PO SCH ×4 (10:46→22:05)
[2018-04-23] MEDS: Ibuprofen 800 MG TAB PO SCH ×3 (10:46→17:59)
[2018-04-23] MEDS ORDERED: PROVENTIL INHALER 6.7 G (200 INHALATIONS) INH PRN (11:22)
[2018-04-23 20:24] VITALS: TEMP 98.2
[2018-04-23] MEDS: Magnesium Oxide 400 MG TAB PO SCH (20:30)
[2018-04-23] MEDS ORDERED: Non-Formulary Item 1 EACH (Potassium Chloride [Potassium Chloride] 10 MEQ) PO SCH (21:00)
[2018-04-23] MEDS ORDERED: Topiramate 25 MG TAB PO SCH (21:00)
[2018-04-23] MEDS ORDERED: Prenatal Vitamin 1 TAB PO SCH (21:00)
[2018-04-23] MEDS ORDERED: Non-Formulary Item 1 EACH (Topiramate [Topiramate] 50 MG) PO SCH (21:00)
[2018-04-24] MEDS: Ibuprofen 800 MG TAB PO SCH ×2 (01:31→09:08)
[2018-04-24] MEDS: Acetaminophen 500 MG TAB PO SCH (04:27)
--- NOTE | 2018-04-24 05:25 | PDOC.FM ---
- Subjective Subjective: Patient reports improvement in her pain since yesterday. States she was able to get up and walk around yesterday. Also endorses having a bowel movement since surgery. Only complaint is gas and having pain around her incision sites. Well controlled on current PO regimen. Denies any N/V/D or fever/chills. - Objective MAR Reviewed: Yes Vital Signs & Weight: Vital Signs (12 hours) Temp Pulse Resp BP BP Pulse Ox 04/23/18 21:30 69 16 96 04/23/18 20:29 72 126/85 04/23/18 20:00 98.2 F 72 18 126/85 93 L Weight Weight 129.002 kg I&O: 04/22/18 04/23/18 04/24/18 06:59 06:59 06:59 Intake Total 2250 Balance 2250 Result Diagrams: 04/24/18 07:29 04/24/18 07:29 Phys Exam - Physical Examination Constitutional: NAD HEENT: moist MMs Neck: supple, full ROM Respiratory: no wheezing, no rales, no rhonchi, clear to auscultation bilateral Cardiovascular: RRR, no significant murmur Gastrointestinal: soft, non-tender, no distention, positive bowel sounds Neurological: non-focal, moves all 4 limbs Psychiatric: normal affect, A&O x 3 Skin: no rash, normal turgor Dx/Plan (1) Fibromyalgia Status: Acute (2) Migraines Code(s): G43.909 - MIGRAINE, UNSP, NOT INTRACTABLE, WITHOUT STATUS MIGRAINOSUS Status: Acute (3) Morbid obesity Code(s): E66.01 - MORBID (SEVERE) OBESITY DUE TO EXCESS CALORIES Status: Acute (4) Aortic stenosis Code(s): I35.0 - NONRHEUMATIC AORTIC (VALVE) STENOSIS Status: Acute (5) Cervical radiculopathy Code(s): M54.12 - RADICULOPATHY, CERVICAL REGION Status: Acute (6) GERD (gastroesophageal reflux disease) Code(s): K21.9 - GASTRO-ESOPHAGEAL REFLUX DISEASE WITHOUT ESOPHAGITIS Status: Acute (7) HIV (human immunodeficiency virus infection) Status: Acute (8) HTN (hypertension) Code(s): I10 - ESSENTIAL (PRIMARY) HYPERTENSION Status: Acute (9) DEBORAH (obstructive sleep apnea) Code(s): G47.33 - OBSTRUCTIVE SLEEP APNEA (ADULT) (PEDIATRIC) Status: Chronic - Plan Plan: Acute gallstone pancreatitis, resolved: -Lipase 3x ULN at 6445 on admission. ABD US with GB wall thickening & CBD dilation at 6mm. CT showed peripancreatic fat stranding & edema consistent w/ pancreatitis. - Lipase down to 45 yesterday s/p lap ignacio and ERCP. LFTs & WBC also downtrending. -tramadol PRN & TESS tylenol and ibuprofen for pain control. -zofran PRN for nausea -simethicone for gas pain Concern for choledocolithiasis and cholecystitis, resolved: -See imaging findings above. -Gen surg & GI on board. Appreciate recs. Post-op day #2 s/p lap ignacio & ERCP. Will continue to advance diet as tolerated. Hypertensive urgency, resolved: -BPs now below urgency range but were persistently elevated yesterday as patient refused one of her BP meds. -Will continue home meds today. HIV: -Follows w/ Dr. Mayer, last seen 6 mos ago w/ CD43 count 900 per patient. -Will continue home tivicay & Descovy. cHTN: -Will continue home meds. CAD: -Will continue ASA. Aortic stenosis: -MD aware, will continue to monitor. GERD: -prn tums, not currently on meds. Morbid obesity: -Will intake counselor on life style modification. DEBORAH on CPAP: - Will continue CPAP HS. IVFs: SL Abx: none dvt ppx: lovenox gi ppx: protonix Dispo: Post op day #2 s/p Lap ignacio w/ ERCP. Anticipate d/c home today w/ f/u w / Gen surg in 2 weeks 7 PCP within ~ 1 week. Addendum - Attending - Attending Attestation Date/Time: 04/24/18 0904 I personally evaluated the patient and discussed the management with Dr. Heath. I agree with the History, Examination, Assessment and Plan documented above with any addition or exceptions noted below. Patient is feeling much better this morning and will d/c home.
[2018-04-24 07:53] VITALS: BP 133/53
[2018-04-24 07:54] LABS: #Basophils 0.1 thou/uL (0.0-0.2); #Eosinphils 0.2 thou/uL (0.0-0.7); #Lymphocytes 2.6 thou/uL (1.20-3.40); #Monocytes 0.7 thou/uL (0.11-0.59); %Basophils 0.7 % (0.0-1.0); %Eosinophils 2.2 % (0.0-10.0); %Lymphocytes 24.1 % (21.0-51.0); %Monocytes 6.8 % (0.0-10.0); %Neutrophils 66.1 % (42.0-75.0); Mean Corpuscular HGB CONC 32.1 g/dL (32.0-36.0); Mean Corpuscular Hemoglobin 28.9 pg (27.0-31.0); Mean Corpuscular Volume 90.2 fL (78.0-98.0); Platelet Count 203 thou/uL (130-400); RBC Distribution Width 13.3 % (11.5-14.5); Red Blood Cell (RBC) Count 3.45 mill/uL (4.20-5.40); White Blood Cell (WBC) Count 10.6 thou/uL (4.8-10.8)
[2018-04-24 08:16] LABS: Anion Gap 9 mmol/L (10-20); BUN (Urea Nitrogen) 9 mg/dL (7.0-18.7); Calc. Creatinine Clearance 215 mL/min (70-130); Calcium 8.4 mg/dL (7.8-10.44); Carbon Dioxide 28 mmol/L (22-29); Chloride 106 mmol/L (98-107); Estimated GFR-MDRD Greater than 90; Glucose 88 mg/dL (70-105); Magnesium 1.8 mg/dL (1.6-2.6); Potassium 3.8 mmol/L (3.5-5.1); Sodium 139 mmol/L (136-145)
[2018-04-24] MEDS: hydrOXYzine 25 MG TAB PO SCH (08:58)
[2018-04-24] MEDS: hydrALAZINE 25 MG TAB PO SCH (08:59)
[2018-04-24] MEDS: Aspirin 81 mg Enteric Coated Tablet PO SCH (09:00)
[2018-04-24] MEDS: Senokot S 8.6-50 MG TAB PO SCH (09:00)
[2018-04-24] MEDS: Isosorbide Dinitrate 20 MG TAB PO SCH (09:00)
[2018-04-24] MEDS ORDERED: Polyethylene Glycol 3350 17 GM Packet PO SCH (09:00)
[2018-04-24] MEDS: Magnesium Oxide 400 MG TAB PO SCH (09:00)
[2018-04-24] MEDS: Pantoprazole 40 MG VIAL IVP SCH (09:01)
[2018-04-24] MEDS ORDERED: Simethicone Chewable 80 MG TAB PO PRN (09:01)
[2018-04-24] MEDS: Fluticasone Propionate Nasal Spray 16 gm Bottle NASAL SCH (09:03)
[2018-04-24] MEDS ORDERED: Acetaminophen 500 MG TAB PO SCH (14:00)
--- NOTE | 2018-04-24 17:41 | OP ---
DATE OF PROCEDURE: 04/22/2018 PREOPERATIVE DIAGNOSIS: Gallstone pancreatitis, resolving. POSTOPERATIVE DIAGNOSIS: Gallstone pancreatitis, resolving. PROCEDURE PERFORMED: Laparoscopic cholecystectomy with intraoperative cholangiogram. ANESTHESIA: General endotracheal. INDICATIONS: The patient is a morbidly obese, 43-year-old black female. She presented with obvious gallstone pancreatitis. Her bilirubin and lipase levels had been elevated, but both were decreasing appropriately. She was taken to the operative room at this time for cholecystectomy and cholangiogram. It was recognized preoperatively that she may have adhesions from a prior laparoscopic ventral hernia repair. DESCRIPTION OF OPERATION: Informed consent was obtained. The patient was taken to the operating room. General endotracheal anesthesia was obtained with the patient in the supine position. Abdomen was prepped with ChloraPrep, draped in sterile fashion. Local anesthetic was infiltrated using 0.25% Marcaine with epinephrine, and a 5 mm right upper quadrant incision was created. A Veress needle was advanced through this and pneumoperitoneum was established using carbon dioxide. A 5 mm trocar port was passed through this incision and laparoscopic camera was passed through this port. There was recognized to be extensive adhesions to the anterior abdominal wall. It appeared that her omentum was plastered against the mesh patch in the upper and mid abdomen. I placed two additional 5 mm right upper quadrant ports in their usual location. I lysed several of these omental adhesions using electrocautery and sharp dissection. The exposure was difficult primarily secondary to her extensive obesity, which made visualization and manipulation difficult. Eventually, I was able to clear enough of the abdominal wall to the right side of the supraumbilical area that I was able to place an 11 mm port. Camera was passed through this port and the operation was continued. The gallbladder was grasped and retracted in a cephalad direction. The liver, surprisingly, was not particularly fatty and I was able to reflect this appropriately. The apex of the gallbladder was grasped and retracted laterally and inferiorly. Careful dissection was carried out to the apex of the gallbladder to identify the cystic duct and cystic artery. The artery began bleeding with early dissection and retraction and this led to about 100 to 150 mL of bleeding in the upper abdomen before I was able to dissect and clip the artery. The bleeding was controlled quickly. The artery was clipped proximally and a cholangiogram was obtained. This revealed normal ductal anatomy, but the duct was clearly dilated. The contrast did empty into the duodenum. There was noted to be no definite filling defects. A pancreatogram was obtained as well. The cholangiocath was removed, and the duct was doubly clipped and it was divided. The gallbladder was then dissected out of the gallbladder fossa using electrocautery. It was removed through the 11-mm port site. The fascia was then closed with 0 Vicryl suture using a GraNee needle. There were several stones present within the gallbladder. The right upper quadrant was copiously irrigated. All irrigant was aspirated. There was no evidence of any ongoing bleeding or any bile leak. All ports and instruments were removed under direct vision. Pneumoperitoneum was carefully evacuated. 0.25% Marcaine with epinephrine was infiltrated at each port site. Skin edges were approximated with 4-0 Monocryl subcuticular suture. Dermabond was placed externally. There were no complications. The patient tolerated the procedure well and was taken to recovery room in stable condition. Job ID: [id number]
--- NOTE | 2018-04-25 11:23 | DIS ---
DATE OF ADMISSION: 04/21/2018 DATE OF DISCHARGE: 04/24/2018 RESIDENT: Paola Heath MD CONSULTS: 1. Gastroenterology, Ernestina Chaidez. 2. General Surgery, Dr. Tabby Nickerson. PROCEDURES: 1. Chest x-ray on 04/20/2018, which was an unremarkable anterior-posterior view of the chest. 2. Abdomen, pelvis CT on 04/20/2018, which noted edematous change of the pancreas, peripancreatic fat stranding, and non-loculated fluid consistent with acute pancreatitis as well as mild gallbladder wall thickening, but no abnormal distention and no visible calculi. 3. Abdomen ultrasound on 04/21/2018, which showed echogenic calculi in the gallbladder lumen consistent with cholelithiasis and an abnormal gallbladder wall thickening measuring 6 mm with a small quantity of pericholecystic fluid and a positive sonographic Palacios sign consistent with acute cholecystitis. The common bile duct is mildly prominent measuring nearly 37 mm, but no visible choledocholithiasis to the extent visualized. 4. Operative cholangiogram on 04/22/2018, which showed opacification of a normal appearing intra and extrahepatic biliary system with some tapering of the distal aspect of the common bile duct. Contrast does reflux into the pancreatic duct duodenum. 5. Laparoscopic cholecystectomy on 04/22/2018. PRIMARY DIAGNOSES: 1. Acute gallstone pancreatitis. 2. Cholelithiasis. SECONDARY DIAGNOSES: 1. Morbid obesity. 2. Gastroesophageal reflux disease. 3. Hypertension. 4. Obstructive sleep apnea, on CPAP. 5. Aortic stenosis. 6. Human immunodeficiency virus. 7. History of migraines. 8. Fibromyalgia. DISCHARGE MEDICATIONS: 1. Allopurinol 100 mg p.o. at bedtime. 2. multivitamin one tab p.o. at bedtime. 3. Nifedipine 60 tabs p.o. b.i.d. p.r.n. 4. Hydroxyzine 25 mg p.o. t.i.d. 5. Wellbutrin 150 mg p.o. b.i.d. 6. Metoclopramide 10 mg p.o. t.i.d. 7. Fluticasone one spray in each naris daily. 8. Metoprolol succinate 100 mg p.o. b.i.d. 9. Zofran 8 mg sublingual b.i.d. p.r.n. #14. 10. Proventil HFA two puffs inhaled every 4 hours p.r.n. 11. Aspirin 81 mg p.o. daily. 12. Tivicay 50 mg tablets, one tab p.o. q.a.m. 13. Descovy 200-25 mg tablet, one tab p.o. q.a.m. 14. Topiramate 50 mg p.o. at bedtime. 15. Tylenol 1000 mg p.o. every 8 hours p.r.n. for pain. 16. Ibuprofen 800 mg p.o. t.i.d. #15. 17. Simethicone 80 mg p.o. every 6 hours p.r.n. 18. Docusate sodium-senna tablets one each p.o. b.i.d. p.r.n. #14. 19. Famotidine 20 mg p.o. b.i.d. #60. DISCONTINUED MEDICATIONS: 1. Potassium chloride 10 mEq p.o. at bedtime. 2. Metoprolol tartrate 50 mg p.o. t.i.d. HOSPITAL COURSE: The patient is a 43-year-old with a past medical history significant for morbid obesity, HIV, DEBORAH on CPAP, and hypertension who presented to the emergency department with a chief complaint of abdominal pain that started at approximately 6:00 p.m. on the evening of presentation. The patient reported sharp epigastric pain radiating into her back as well as all across her abdomen with associated nausea, vomiting, and inability to tolerate p.o. In addition, the patient reported a history of right upper quadrant postprandial pain that has been ongoing for the last several months, but she did not seek medical attention for it. On presentation to the emergency department, the patient was noted to be stable with the exception of a significantly elevated blood pressure of 215/110 and reported her pain to be 10/10 in severity. She was therefore given a total of 8 mg of IV morphine and 0.5 mg of Dilaudid for pain control. In addition, the patient was given approximately 8 mg of IV Zofran, 1 L of normal saline, 1 L of LR, 4.5 g of Zosyn, and 10 mg of IV labetalol. Routine labs including a CMP, lipase, CBC and UA were obtained, which were significant for neutrophilia with a neutrophil count of approximately 78%, transaminitis with an elevated alkaline phosphatase of 321, and AST and ALT of 125 and 92 respectively. The patient's LDH was also elevated at 372 and her total bilirubin was high at 3.1. Lastly, the patient's lipase was significantly elevated at 6445. Her urinalysis showed only trace blood, but was otherwise within normal limits. Routine imaging including a chest x-ray, abdomen, pelvis CT, and abdominal ultrasound were then obtained and were significant for acute pancreatitis likely secondary to gallstones as her right upper quadrant ultrasound did note cholelithiasis and dilatation of the common bile duct and gallbladder wall consistent with cholecystitis. Gastroenterology and Surgery were therefore consulted from the emergency department to come and evaluate the patient. However, due to the fact that she was hemodynamically stable, afebrile, and her white blood count was within normal limits, the specialist opted for her to be admitted for pain control overnight and monitoring of her lipase to see improvement in her pancreatitis prior to taking the patient to the OR for surgery. The patient was therefore admitted to the medical floor for pain control and trending of her LFTs and lipase on 1st day of hospitalization. Pain was controlled with scheduled and p.r.n. morphine as well as p.r.n. IV Toradol and the patient was kept n.p.o. and continued on IV fluids with LR at approximately 200 mL an hour. The following morning, both GI and General Surgery came and evaluated the patient and again, recommended that she be monitored closely for the course of the day before being taken to the OR for emergent laparoscopic cholecystectomy and/or ERCP. Therefore, the patient was taken back for a laparoscopic cholecystectomy with ERCP on day two of hospitalization and tolerated the procedure well. Following surgery, the patient's diet was escalated as tolerated and her LFTs and lipase were noted to have significantly downtrended to 77, 67, 224, and 45 respectively. The patient was transitioned from IV to p.o. pain regimen, which adequately controlled her pain and on postop day #2, the patient was cleared for discharge home in stable condition with close followup with General Surgery and her primary care physician. DISPOSITION: Stable. DISCHARGE INSTRUCTIONS: 1. Location: Home. 2. Diet: Heart healthy diet as tolerated. 3. Activity: Activity as tolerated, no restrictions. 4. Followup: The patient was discharged to follow up with General Surgery, Dr. Shravan Castro within two weeks of discharge. She was also instructed to follow up with her primary care provider, Dr. Janee Bennett, or [facility], within one week of discharge. PRIMARY CARE PROVIDER: Janee Bennett DO Job ID: [id number]
== END 2018-04-24 14:25 | disposition home or self-care (01) | DRG 418 ==
LOC: ERS 23:08 → 3SE 04-21 02:40 → T4-B 04-22 19:24
PROVIDERS: ADMIT Family Medicine; ATTEND Family Medicine
PROC: 0FT44ZZ Resection of Gallbladder, Percutaneous Endoscopic Approach (ICD-10-PCS; principal; 2018-04-22)
PROC: BF101ZZ Fluoroscopy of Bile Ducts using Low Osmolar Contrast (ICD-10-PCS; 2018-04-22)
DX: K85.10 Biliary acute pancreatitis without necrosis or infection (principal); Z68.42 Body mass index [BMI] 45.0-49.9, adult; I10 Essential (primary) hypertension; K80.70 Calculus of gallbladder and bile duct without cholecystitis without obstruction; G47.33 Obstructive sleep apnea (adult) (pediatric); K21.9 Gastro-esophageal reflux disease without esophagitis; J45.909 Unspecified asthma, uncomplicated; G43.909 Migraine, unspecified, not intractable, without status migrainosus; M79.7 Fibromyalgia; I25.10 Atherosclerotic heart disease of native coronary artery without angina pectoris; I35.0 Nonrheumatic aortic (valve) stenosis; E66.01 Morbid (severe) obesity due to excess calories; M54.12 Radiculopathy, cervical region; F41.9 Anxiety disorder, unspecified; Z21 Asymptomatic human immunodeficiency virus [HIV] infection status; Z88.8 Allergy status to other drugs, medicaments and biological substances; Z98.890 Other specified postprocedural states; Z98.51 Tubal ligation status; Z79.82 Long term (current) use of aspirin
CPT/HCPCS: 36415; 47532; 71045; 74177; 76705; 80048; 80053; 80061; 81003; 81015; 81025; 83605; 83615; 83690; 83735; 83880; 84484; 85025; 88304; 90471; 90686; 93005; 94660; 96361; 96365; 96375; 96376; C9113; G0008; J0360; J1100; J1170; J1885; J2001; J2270; J2405; J2543; J2550; J2704; J3010; J3480; J3490; J7050; J8597; P9047; Q0163; Q9961; Q9966

== ENCOUNTER 2018-04-28 20:31 | Emergency (ER) | payer MEDICARE, MEDICAID ==
[2018-04-29] MEDS ORDERED: diphenhydrAMINE 50 MG CAP ONE (01:22)
[2018-04-29] MEDS ORDERED: predniSONE 20 MG TAB ONE (01:22)
[2018-04-29] MEDS ORDERED: Famotidine 20 MG TAB ONE (01:22)
== END 2018-04-29 02:44 | disposition home or self-care (01) ==
LOC: ERS 20:31
DX: T78.40XA Allergy, unspecified, initial encounter (principal); I25.2 Old myocardial infarction; I25.10 Atherosclerotic heart disease of native coronary artery without angina pectoris; I10 Essential (primary) hypertension; G47.30 Sleep apnea, unspecified; B20 Human immunodeficiency virus [HIV] disease; G43.909 Migraine, unspecified, not intractable, without status migrainosus; F31.9 Bipolar disorder, unspecified; F43.10 Post-traumatic stress disorder, unspecified; F41.9 Anxiety disorder, unspecified; E55.9 Vitamin D deficiency, unspecified; Z79.899 Other long term (current) drug therapy; Z79.82 Long term (current) use of aspirin; Z79.51 Long term (current) use of inhaled steroids
CPT/HCPCS: 99283

== ENCOUNTER 2018-05-05 10:56 | Outpatient (CLI) | payer MEDICARE, MEDICAID ==
--- NOTE | 2018-05-05 13:12 | RAD ---
CHEST 2 VIEWS: Date: 05/05/18 HISTORY: Chest pain on breathing. COMPARISON: 04/20/18. FINDINGS: Mild increased markings in the left base, nonspecific, possibly mild chronic change versus some very mid subsegmental atelectasis. Heart size is within normal limits. The right lung is clear. IMPRESSION: Very mild linear and parenchymal changes in the left base, possibly mild subsegmental atelectasis. At herosclerosis of aorta. No evidence for confluent pneumonia. No pneumothorax or significant pleural e ffusion. POS: [facility]
== END 2018-05-05 10:57 | disposition home or self-care (01) ==
LOC: BICRAD 10:56
PROVIDERS: ATTEND Internal Medicine Infectious Disease
DX: R07.1 Chest pain on breathing (principal); I70.0 Atherosclerosis of aorta
CPT/HCPCS: 71046

== ENCOUNTER 2018-07-08 09:42 | Outpatient (CLI) | payer MEDICARE, MEDICAID | END 2018-07-08 09:43 | disposition home or self-care (01) | LOC: RAD 09:42 | PROVIDERS: ATTEND Specialist | DX: Z01.818 Encounter for other preprocedural examination (principal); E66.01 Morbid (severe) obesity due to excess calories | CPT/HCPCS: 97802 ==

== ENCOUNTER 2018-08-12 09:57 | Outpatient (CLI) | payer MEDICARE, MEDICAID ==
--- NOTE | 2018-08-12 10:26 | BD ---
EXAM: DEXA bone density examination HISTORY: 43-year-old postmenopausal female for screening COMPARISON: None FINDINGS: L1--bone mineral density 1.141 g/sq cm; T score 1.4 L2--bone mineral density 1.225 g/sq cm; T score 1.8 L3--bone mineral density 1.161 g/sq cm; T score 0.7 L4--bone mineral density 1.178 g/sq cm; T score 1.1 Total L1-L4--bone mineral density 1.175 g/sq cm; T score 1.2 Left femoral neck--bone mineral density0.862; T score 0.1 Total proximal left femur--bone mineral density 1.140; T score 1.6 IMPRESSION: Normal bone mineral density
== END 2018-08-12 09:58 | disposition home or self-care (01) ==
LOC: BICMAMMO 09:57
PROVIDERS: ATTEND Pediatrics Pediatric Allergy/Immunology
DX: Z13.820 Encounter for screening for osteoporosis (principal); R74.8 Abnormal levels of other serum enzymes
CPT/HCPCS: 77080

== ENCOUNTER 2018-08-20 15:00 | Inpatient (IN) | payer MEDICARE, MEDICAID ==
[2018-08-20 15:11] VITALS: BMI 45.8
[2018-08-26] MEDS ORDERED: Heparin 5,000 UNITS/ML VIAL ONE (08:30)
[2018-08-26] MEDS ORDERED: Ketorolac Tromethamine 30 MG/ML VIAL ONE (08:30)
[2018-08-26] MEDS ORDERED: Scopolamine 1.5 mg/72 hour Patch ONE (08:31)
[2018-08-26] MEDS ORDERED: Sodium Chloride 0.9% 100 ML ONE (08:31)
[2018-08-26] MEDS ORDERED: cefOXitin 2 GM VIAL ONE (08:31)
[2018-08-26] MEDS ORDERED: Bupivacaine/Epinephrine 0.25% 30 ML VIAL ONE (08:42)
[2018-08-26] MEDS ORDERED: Midazolam HCl 2 mg/2 ml Vial ONE ×2 (09:11→09:53)
[2018-08-26] MEDS ORDERED: Fentanyl 100 MCG/2 ML VIAL ONE ×3 (09:53→12:58)
[2018-08-26] MEDS ORDERED: Promethazine HCl 25 MG/ML VIAL ONE (12:05)
[2018-08-26] MEDS ORDERED: diphenhydrAMINE 50 MG/ML VIAL IVP PRN (13:42)
[2018-08-26] MEDS ORDERED: PROVENTIL INHALER 6.7 G (200 INHALATIONS) INH PRN (13:42)
[2018-08-26] MEDS ORDERED: Acetaminophen 650 MG/20.3 ML UDCUP PO PRN (13:42)
[2018-08-26] MEDS ORDERED: Hydrocodone-Acetamin 15 ML UDCUP PO PRN (13:42)
[2018-08-26] MEDS ORDERED: Dextrose 5% in Water 1,000 ML IV PRN (13:42)
[2018-08-26] MEDS ORDERED: hydrALAZINE 20 MG/ML VIAL SLOW IVP PRN (13:42)
[2018-08-26] MEDS ORDERED: Dextrose 50% Abboject 50 ML SYRINGE SLOW IVP PRN (13:42)
[2018-08-26] MEDS ORDERED: Morphine 4 MG/ML VIAL SLOW IVP PRN (13:42)
[2018-08-26] MEDS: Morphine 4 MG/ML VIAL SLOW IVP PRN ×2 (15:06→17:29)
[2018-08-26] MEDS: Acetaminophen 1,000 MG in Premix Bag 1 BAG IVPB SCH ×2 (15:06→20:29)
[2018-08-26] MEDS: D5 1/2 NS w/20 mEq KCL 1,000 ML IV SCH ×2 (15:24→23:19)
[2018-08-26] MEDS ORDERED: Glycopyrrolate 0.2 MG/ML 5 ML SYRINGE ONE (15:46)
[2018-08-26] MEDS ORDERED: PROPOFOL 200 MG/20 ML VIAL ONE (15:46)
[2018-08-26] MEDS ORDERED: Ondansetron PF 4 MG/2 ML Vial ONE (15:46)
[2018-08-26] MEDS ORDERED: Metoclopramide HCl 10 MG/2 ML VIAL ONE (15:46)
[2018-08-26] MEDS ORDERED: Lidocaine 1% PF 5 ML VIAL ONE (15:46)
[2018-08-26] MEDS ORDERED: Rocuronium Bromide 10 MG/ML (10ML VIAL) ONE (15:46)
[2018-08-26] MEDS: Ketorolac Tromethamine 30 MG/ML VIAL IVP SCH ×2 (17:27→23:17)
[2018-08-26] MEDS: Ondansetron PF 4 MG/2 ML Vial IVP PRN (17:28)
[2018-08-26] MEDS: Promethazine HCl 25 MG/ML VIAL IM PRN (20:37)
[2018-08-26] MEDS ORDERED: Enoxaparin Sodium 40 MG/0.4 ML SYRINGE SC SCH (21:00)
[2018-08-26] MEDS ORDERED: Topiramate 100 MG TAB PO SCH (21:00)
[2018-08-27] MEDS: Acetaminophen 1,000 MG in Premix Bag 1 BAG IVPB SCH ×2 (02:38→09:18)
[2018-08-27] MEDS: Ondansetron PF 4 MG/2 ML Vial IVP PRN (02:42)
[2018-08-27 05:16] LABS: #Lymphocytes 2.3 thou/uL (1.20-3.40); #Monocytes 0.5 thou/uL (0.11-0.59); #Neutrophils 7.2 thou/uL (1.40-6.50); %Basophils 0.1 % (0.0-1.0); %Eosinophils 0.4 % (0.0-10.0); %Lymphocytes 22.4 % (21.0-51.0); %Monocytes 5.3 % (0.0-10.0); %Neutrophils 71.8 % (42.0-75.0); Hemoglobin 10.4 g/dL (12.0-16.0); Mean Corpuscular HGB CONC 32.9 g/dL (32.0-36.0); Mean Corpuscular Hemoglobin 29.2 pg (27.0-31.0); Mean Corpuscular Volume 88.8 fL (78.0-98.0); Mean Platelet Volume 6.8 fL (7.4-10.4); Platelet Count 250 thou/uL (130-400); RBC Distribution Width 12.8 % (11.5-14.5); Red Blood Cell (RBC) Count 3.57 mill/uL (4.20-5.40)
[2018-08-27 05:36] LABS: Anion Gap 8 mmol/L (10-20); BUN (Urea Nitrogen) 5 mg/dL (7.0-18.7); Calc. Creatinine Clearance 191 mL/min (70-130); Calcium 8.5 mg/dL (7.8-10.44); Carbon Dioxide 27 mmol/L (22-29); Chloride 106 mmol/L (98-107); Estimated GFR-MDRD Greater than 90; Glucose 119 mg/dL (70-105); Potassium 3.7 mmol/L (3.5-5.1); Sodium 137 mmol/L (136-145)
[2018-08-27] MEDS: Ketorolac Tromethamine 30 MG/ML VIAL IVP SCH ×2 (05:48→12:12)
[2018-08-27] MEDS: Promethazine HCl 25 MG/ML VIAL IM PRN (05:53)
[2018-08-27] MEDS: D5 1/2 NS w/20 mEq KCL 1,000 ML IV SCH (05:54)
[2018-08-27] MEDS ORDERED: TENOFOV ALAFENAM PO SCH (09:00)
[2018-08-27] MEDS ORDERED: FLUoxetine HCl 20 MG CAP PO SCH (09:00)
[2018-08-27] MEDS ORDERED: DOLUTEGRAVIR SODIUM PO SCH (09:00)
[2018-08-27] MEDS ORDERED: EMTRICITABINE PO SCH (09:00)
[2018-08-27] MEDS ORDERED: Pantoprazole 40 MG VIAL IVP SCH (09:00)
[2018-08-27 12:03] VITALS: BP 140/91; TEMP 98.1
[2018-08-27] MEDS ORDERED: Acetaminophen 650 MG/20.3 ML UDCUP PO PRN (15:00)
--- NOTE | 2018-08-28 11:45 | OP ---
DATE OF PROCEDURE: 08/26/2018 PREOPERATIVE DIAGNOSIS: Morbid obesity. POSTOPERATIVE DIAGNOSES: Morbid obesity with intra-abdominal adhesions to the anterior abdominal wall. OPERATIONS PERFORMED: Laparoscopic lysis of adhesions, laparoscopic vertical sleeve gastrectomy with the ViSiGi device. INDICATIONS: The patient is a morbidly obese 43-year-old black female. She has undergone preoperative evaluation and education and has taken to the operating room at this time for laparoscopic vertical sleeve gastrectomy. She does have a history of both a laparoscopic gallbladder surgery and a laparoscopic ventral hernia repair. The ventral hernia is in the supraumbilical midline. DESCRIPTION OF OPERATION: Informed consent was obtained. The patient was taken to the operating room where general endotracheal anesthesia was obtained with the patient in supine position. Abdomen was prepped with ChloraPrep and draped in sterile fashion. Local anesthetic was infiltrated and 5 mm supraumbilical incision was created through which Veress needle was passed to the peritoneal cavity and pneumoperitoneum established using carbon dioxide up to a pressure of 15 mmHg. A 5 mm trocar port was passed through this same incision. Laparoscopic camera was passed through this port. Under direct vision, 4 additional ports were placed including bilateral 5 mm subcostal ports, a 12 mm right paramedian port and a 15 mm left paramedian port. A 5 mm epigastric incision was created through which Nathansen retractor was passed into the abdominal cavity and used to retract the left lobe of the liver. The patient was placed into reverse Trendelenburg position. The ViSiGi device was advanced within the stomach and used to decompress this. The pylorus was identified and beginning 4 cm proximal to the pylorus, the omentum and vascular tissue along the greater curvature was divided using the LigaSure in an ascending fashion up to the angle of His. All posterior adhesions were mobilized. The short gastric vessels were carefully divided and then hemostasis was maintained using the LigaSure. Once this was completely mobilized, the ViSiGi was carefully positioned at the level of the pylorus and placed to suction, which was clearly defining the lesser curvature of the stomach. The gastrectomy was then performed using a series of fires of the [place] stapler using a green load followed by a gold load and a series of blue loads until completion of the gastrectomy. The ViSiGi along the lesser curvature was used as a size 36 bougie to guide in the gastric division. Care was taken to avoid narrowing the incisura or the gastroesophageal junction. The integrity of the staple line was then assessed by insufflating gas through the ViSiGi while irrigating along the staple line. There was no evidence of an air leak. There was no evidence of bleeding along the staple line. The resected stomach was then removed through the 15 mm port and the fascia was closed with 0 Vicryl suture using a GraNee needle. I then closed the 12 mm port also using the GraNee needle and 0 Vicryl suture. The Nathansen retractor was removed. All ports and instruments were removed under direct vision. All irrigant was aspirated. Pneumoperitoneum was carefully evacuated. 0.25% Marcaine with epinephrine was infiltrated into each port site. Skin edges approximated with 4-0 Monocryl subcuticular suture. Dermabond was placed externally. There were no complications. The patient tolerated the procedure well and was taken to recovery room in stable condition. FINDINGS: The patient did have adhesions to the anterior abdominal wall. These were taken down using careful dissection with the LigaSure from the lateral abdominal ports until the midline port could be safely placed. No bowel was involved in the adhesions. Other remainder of the operation was entirely uneventful. There were no adhesions involving the stomach and blood loss during the operation was negligible. The patient tolerated the procedure well and was taken to recovery room in stable condition. Job ID: [id number]
== END 2018-08-27 13:37 | disposition home or self-care (01) | DRG 620 ==
LOC: SURG A 08-26 07:38
PROVIDERS: ADMIT Specialist; ATTEND Specialist
PROC: 0DB64Z3 Excision of Stomach, Percutaneous Endoscopic Approach, Vertical (ICD-10-PCS; principal; 2018-08-26)
PROC: 0DNW4ZZ Release Peritoneum, Percutaneous Endoscopic Approach (ICD-10-PCS; 2018-08-26)
DX: E66.01 Morbid (severe) obesity due to excess calories (principal); I42.9 Cardiomyopathy, unspecified; I10 Essential (primary) hypertension; I35.0 Nonrheumatic aortic (valve) stenosis; E78.2 Mixed hyperlipidemia; Z68.42 Body mass index [BMI] 45.0-49.9, adult; F32.9 Major depressive disorder, single episode, unspecified; G43.909 Migraine, unspecified, not intractable, without status migrainosus; Z98.51 Tubal ligation status
CPT/HCPCS: 36415; 80048; 85025; 88307; 88312; 94760; C9113; J0131; J0694; J1644; J1650; J1885; J2001; J2250; J2270; J2405; J2550; J2704; J2765; J3010; J3490

== ENCOUNTER 2018-10-31 10:49 | Day surgery (SDC) | payer MEDICARE, MEDICAID ==
[2018-10-30 12:48] VITALS: BMI 37.4
--- NOTE | 2018-10-31 15:55 | MRI ---
LUMBAR SPINE MRI NONCONTRAST: 10/31/18 INDICATION: Pain. FINDINGS: Reference made to 06/30/12 exam. The conus medullaris is normal in morphology terminating at the inferior L1 level. The vertebral body heights are preserved. There is degenerative disc space narrowing at L5-S1 with associated Modic typ e II degenerative signal alteration. There is a mild congenital narrowing of the AP diameter of verte bral canal on the basis of shortened pedicles. L5-S1: There is bilateral mild facet osteoarthritis and broad based disc osteophyte complex which res ults in mild central canal stenosis and moderate to severe left, moderate right neural foraminal sten osis. L4-5: Concentric disc bulge effaces the ventral thecal sac with mild narrowing, as well as crowding o f the traversing left L5 nerve root within the left subarticular zone. There is mild right neural for aminal narrowing. No significant left neural foraminal narrowing. L3-4: Concentric disc bulge produces mild narrowing of the central canal. There is no high grade fora juan a stenosis. L2-3: No significant central canal or neural foraminal stenosis. Slight effacement of the ventral the allen sac due to disc bulge. L1-2: No high grade central canal or neural foraminal stenosis. IMPRESSION: Multilevel degenerative changes of the lumbar spine as outlined above, without significant interval p rogression from comparison exam. POS: [facility]
== END 2018-10-31 16:30 | disposition home or self-care (01) ==
LOC: SDC/OP 10:49
PROVIDERS: ATTEND Orthopaedic Surgery
DX: M47.26 Other spondylosis with radiculopathy, lumbar region (principal); I10 Essential (primary) hypertension; F41.9 Anxiety disorder, unspecified; F32.9 Major depressive disorder, single episode, unspecified; E66.9 Obesity, unspecified; Z68.37 Body mass index [BMI] 37.0-37.9, adult; Z79.899 Other long term (current) drug therapy; Z88.8 Allergy status to other drugs, medicaments and biological substances
CPT/HCPCS: 72148

== ENCOUNTER 2019-03-23 22:45 | Emergency (ER) | payer MEDICARE, MEDICAID ==
[2019-03-23 23:12] LABS: Hemoglobin 11.6 g/dL (12.0-16.0); Red Blood Cell (RBC) Count 3.96 mill/uL (4.20-5.40); White Blood Cell (WBC) Count 5.1 thou/uL (4.8-10.8)
[2019-03-23 23:13] LABS: Mean Corpuscular HGB CONC 32.8 g/dL (32.0-36.0); Mean Corpuscular Hemoglobin 29.4 pg (27.0-31.0); Mean Corpuscular Volume 89.4 fL (78.0-98.0); Mean Platelet Volume 7.4 fL (7.4-10.4); Platelet Count 184 thou/uL (130-400); RBC Distribution Width 11.1 % (11.5-14.5)
[2019-03-23 23:25] LABS: Bacteria/HPF None Seen HPF (None Seen); Bilirubin Negative (Negative); Blood, Urine Negative (Negative); Clarity Clear (Clear); Glucose, Urine (Dipstick) Normal (Negative); Leukocyte Negative Leu/uL (Negative); Nitrite Negative (Negative); Protein, Urine (Dipstick) 30 mg/dL (Neg-Trace); RBC/HPF 0-3 HPF (0-3); Squamous Epithelial 0-3 HPF (0-3); WBC/HPF 0-3 HPF (0-3)
[2019-03-23 23:32] LABS: ALT (SGPT) 8 U/L (8-55); AST (SGOT) 16 U/L (5-34); Albumin 3.6 g/dL (3.5-5.0); Alkaline Phosphatase 143 U/L (40-110); Anion Gap 5 mmol/L (10-20); BUN (Urea Nitrogen) 9 mg/dL (7.0-18.7); Bilirubin, Total 0.3 mg/dL (0.2-1.2); Calc. Creatinine Clearance 0 mL/min (70-130); Calcium 8.6 mg/dL (7.8-10.44); Carbon Dioxide 31 mmol/L (22-29); Chloride 106 mmol/L (98-107); Estimated GFR-MDRD Greater than 90; Globulin 4.2 g/dL (2.4-3.5); Glucose 86 mg/dL (70-105); Potassium 3.3 mmol/L (3.5-5.1); Protein, Total 7.8 g/dL (6.0-8.3); Sodium 139 mmol/L (136-145)
[2019-03-23 23:42] LABS: Eosinophils 1 % (0-10); Lymphocytes 55 % (21-51); MDiff Complete? YES; Monocytes 5 % (0-10); Neutrophil 37 % (42-75); Reactive Lymphocytes 2 % (0-10)
--- NOTE | 2019-03-24 07:46 | RAD ---
XR Chest Pa Lat STANDARD HISTORY: Cough COMPARISON: 05/05/2018 FINDINGS: The heart size is normal. The lungs are well expanded without focal areas of consolidation, pneumothorax or pleural effusions. IMPRESSION: No radiographic evidence of acute cardiopulmonary process.
== END 2019-03-24 01:15 | disposition home or self-care (01) ==
LOC: ERS 22:45
DX: J32.9 Chronic sinusitis, unspecified (principal); I25.2 Old myocardial infarction; I10 Essential (primary) hypertension; B20 Human immunodeficiency virus [HIV] disease; F41.9 Anxiety disorder, unspecified; F32.9 Major depressive disorder, single episode, unspecified; Z79.899 Other long term (current) drug therapy
CPT/HCPCS: 36415; 71046; 80053; 81003; 81015; 85025; 87804; 93005

== ENCOUNTER 2019-09-16 10:44 | Emergency (ER) | payer MEDICARE, MEDICAID ==
--- NOTE | 2019-09-16 11:26 | RAD ---
PORTABLE CHEST: HISTORY: Chest pain. FINDINGS: The lung chiu appear clear. No infiltrate identified. Heart and mediastinum unremarkable. IMPRESSION: No acute process identified. POS: [facility]
[2019-09-16] MEDS ORDERED: Nitroglycerin 0.4 MG TAB 1 EACH ONE (11:32)
[2019-09-16] MEDS ORDERED: Metoclopramide HCl 10 MG/2 ML VIAL ONE (11:32)
[2019-09-16] MEDS ORDERED: diphenhydrAMINE 50 MG/ML VIAL ONE ×2 (11:32→11:34)
[2019-09-16] MEDS ORDERED: Acetaminophen 500 MG TAB ONE (11:32)
[2019-09-16 11:44] LABS: #Eosinphils 0.1 thou/uL (0.0-0.7); #Lymphocytes 1.4 thou/uL (1.20-3.40); #Monocytes 0.3 thou/uL (0.11-0.59); #Neutrophils 2.4 thou/uL (1.40-6.50); %Basophils 0.8 % (0.0-1.0); %Eosinophils 2.2 % (0.0-10.0); %Lymphocytes 34.5 % (21.0-51.0); %Monocytes 6.1 % (0.0-10.0); %Neutrophils 56.4 % (42.0-75.0); Hemoglobin 12.9 g/dL (12.0-16.0); Mean Corpuscular HGB CONC 33.3 g/dL (32.0-36.0); Mean Corpuscular Hemoglobin 29.9 pg (27.0-31.0); Mean Corpuscular Volume 89.8 fL (78.0-98.0); Mean Platelet Volume 6.9 fL (7.4-10.4); Platelet Count 209 thou/uL (130-400); RBC Distribution Width 11.5 % (11.5-14.5); Red Blood Cell (RBC) Count 4.32 mill/uL (4.20-5.40); White Blood Cell (WBC) Count 4.2 thou/uL (4.8-10.8)
[2019-09-16 12:04] LABS: ALT (SGPT) Less than 7 U/L (8-55); AST (SGOT) 14 U/L (5-34); Albumin 3.6 g/dL (3.5-5.0); Alkaline Phosphatase 136 U/L (40-110); Anion Gap 8 mmol/L (10-20); BUN (Urea Nitrogen) 9 mg/dL (7.0-18.7); Bilirubin, Total 0.4 mg/dL (0.2-1.2); CK (CPK) 56 U/L (29-168); Calc. Creatinine Clearance 0 mL/min (70-130); Calcium 8.7 mg/dL (7.8-10.44); Carbon Dioxide 27 mmol/L (22-29); Chloride 106 mmol/L (98-107); Estimated GFR-MDRD Greater than 90; Globulin 4.4 g/dL (2.4-3.5); Glucose 85 mg/dL (70-105); Potassium 3.8 mmol/L (3.5-5.1); Sodium 137 mmol/L (136-145)
== END 2019-09-16 13:13 | disposition home or self-care (01) ==
LOC: ERS 10:44
DX: I10 Essential (primary) hypertension (principal); R07.9 Chest pain, unspecified; R51 Headache; I25.2 Old myocardial infarction; I25.10 Atherosclerotic heart disease of native coronary artery without angina pectoris; G47.30 Sleep apnea, unspecified; B20 Human immunodeficiency virus [HIV] disease; G62.9 Polyneuropathy, unspecified; E55.9 Vitamin D deficiency, unspecified; F41.9 Anxiety disorder, unspecified; I38 Endocarditis, valve unspecified; F31.9 Bipolar disorder, unspecified; F43.10 Post-traumatic stress disorder, unspecified; Z79.82 Long term (current) use of aspirin; Z79.899 Other long term (current) drug therapy
CPT/HCPCS: 36415; 71045; 80053; 82550; 84484; 85025; 93005; 96365; 96375; J1200; J2765

== ENCOUNTER 2019-09-18 22:33 | Observation (INO) | payer MEDICARE, MEDICAID, OTHER ==
[2019-09-18] MEDS ORDERED: Nitroglycerin 0.4 MG TAB 1 EACH ONE (23:01)
[2019-09-18] MEDS ORDERED: Aspirin Chewable 81 MG TAB ONE (23:01)
[2019-09-18 23:11] LABS: #Basophils 0.1 thou/uL (0.0-0.2); #Eosinphils 0.2 thou/uL (0.0-0.7); #Lymphocytes 2.9 thou/uL (1.20-3.40); #Monocytes 0.5 thou/uL (0.11-0.59); #Neutrophils 2.8 thou/uL (1.40-6.50); %Eosinophils 3.2 % (0.0-10.0); %Lymphocytes 44.4 % (21.0-51.0); %Monocytes 8.1 % (0.0-10.0); %Neutrophils 43.4 % (42.0-75.0); Hemoglobin 12.8 g/dL (12.0-16.0); Mean Corpuscular HGB CONC 34.5 g/dL (32.0-36.0); Mean Corpuscular Hemoglobin 30.6 pg (27.0-31.0); Mean Corpuscular Volume 88.6 fL (78.0-98.0); Mean Platelet Volume 6.8 fL (7.4-10.4); Platelet Count 221 thou/uL (130-400); RBC Distribution Width 11.4 % (11.5-14.5); Red Blood Cell (RBC) Count 4.18 mill/uL (4.20-5.40); White Blood Cell (WBC) Count 6.6 thou/uL (4.8-10.8)
--- NOTE | 2019-09-18 23:22 | RAD ---
EXAM: Single view of the chest HISTORY: Chest pain COMPARISON: 09/16/2019 FINDINGS: Single view of the chest shows a normal sized cardiomediastinal silhouette. There is no flor dence of consolidation, mass, or pleural effusion. The bones are unremarkable IMPRESSION: No evidence of acute cardiopulmonary disease
[2019-09-18 23:33] LABS: ALT (SGPT) 8 U/L (8-55); AST (SGOT) 14 U/L (5-34); Albumin 3.7 g/dL (3.5-5.0); Alkaline Phosphatase 132 U/L (40-110); Anion Gap 12 mmol/L (10-20); BUN (Urea Nitrogen) 13 mg/dL (7.0-18.7); Bilirubin, Total 0.5 mg/dL (0.2-1.2); CK (CPK) 49 U/L (29-168); Calc. Creatinine Clearance 0 mL/min (70-130); Calcium 8.9 mg/dL (7.8-10.44); Carbon Dioxide 25 mmol/L (22-29); Chloride 103 mmol/L (98-107); Estimated GFR-MDRD 79; Globulin 4.3 g/dL (2.4-3.5); Glucose 92 mg/dL (70-105); Potassium 3.8 mmol/L (3.5-5.1); Sodium 136 mmol/L (136-145)
[2019-09-19] MEDS ORDERED: hydrALAZINE 20 MG/ML VIAL ONE (00:21)
[2019-09-19] MEDS ORDERED: Acetaminophen 650 MG Suppository PR PRN (01:26)
[2019-09-19] MEDS ORDERED: Calcium Carbonate 500 MG ChewTAB PO PRN (01:26)
[2019-09-19] MEDS ORDERED: Ondansetron ODT 4 MG TAB PO PRN (01:26)
[2019-09-19] MEDS ORDERED: Ondansetron PF 4 MG/2 ML Vial IVP PRN (01:26)
[2019-09-19] MEDS ORDERED: Acetaminophen 500 MG TAB ONE (01:32)
[2019-09-19] MEDS ORDERED: Nitroglycerin 2% Ointment 1 INCH/1 GM Packet ONE ×2 (01:32→05:44)
[2019-09-19] MEDS ORDERED: Nitroglycerin 0.4 MG TAB 1 EACH SL PRN (01:38)
[2019-09-19 02:22] LABS: #Eosinphils 0.2 thou/uL (0.0-0.7); #Lymphocytes 2.2 thou/uL (1.20-3.40); #Monocytes 0.4 thou/uL (0.11-0.59); #Neutrophils 2.4 thou/uL (1.40-6.50); %Basophils 0.9 % (0.0-1.0); %Eosinophils 3.2 % (0.0-10.0); %Lymphocytes 42.4 % (21.0-51.0); %Monocytes 6.9 % (0.0-10.0); %Neutrophils 46.5 % (42.0-75.0); Mean Corpuscular HGB CONC 32.6 g/dL (32.0-36.0); Mean Corpuscular Hemoglobin 28.6 pg (27.0-31.0); Mean Corpuscular Volume 87.8 fL (78.0-98.0); Mean Platelet Volume 6.9 fL (7.4-10.4); Platelet Count 230 thou/uL (130-400); RBC Distribution Width 11.5 % (11.5-14.5); Red Blood Cell (RBC) Count 4.56 mill/uL (4.20-5.40); White Blood Cell (WBC) Count 5.1 thou/uL (4.8-10.8)
--- NOTE | 2019-09-19 02:23 | PDOC.FPRHP ---
- History of Present Illness Chief Complaint: Chest pain History of Present Illness: Patient is 44 AAF with PMHx of HIV, who presents for chest pain. She was recently in the ED 2 days ago and denied admission. Since then she has been feeling "weird" overall. She states that her chest pain is tight and radiates down her L arm and around her side. The pain occurs while at rest and while exerting herself. Exertion tends to make the pain worse. Pain does not seem to get better with any interventions. She also reports some intermittent dizziness during that time. The dizziness can occur while sitting or standing. She also endorses a persistent KING that changes in nature but is similar to her chronic migraines. Patient was found to be hypertensive. She reports that she was on BP medications before her gastric sleeve surgery but was taken off her medications after losing weight. ED Course: Patient received 324 mg ASA, SL nitro that helped her chest pain. Patient received 10 mg IV hydralazine for HTN and nitro paste. - Allergies/Adverse Reactions Allergies Allergy/AdvReac Type Severity Reaction Status Date / Time lisinopril Allergy facial Verified 05/11/19 22:33 swelling - Home Medications Medication Instructions Recorded Confirmed Type hydrOXYzine HCl [Hydroxyzine HCl] 25 mg PO HS 04/21/18 10/30/18 History Albuterol Sulfate [Proventil Hfa] 2 puff INH Q4HR PRN #1 inh 04/23/18 10/30/18 Rx Topiramate 50 mg PO HS #30 tablet 04/23/18 10/30/18 Rx FLUoxetine HCl 60 mg PO QAM 08/20/18 10/30/18 History Nitroglycerin 0.4 mg SL PRN PRN 08/20/18 10/30/18 History Dolutegravir Sodium [Tivicay] 1 tab PO QPM 10/30/18 10/30/18 History Emtricitabine/Tenofov Alafenam 1 tab PO QPM 10/30/18 10/30/18 History [Descovy 200-25 mg Tablet] clonazePAM [Klonopin] 0.5 mg PO BID 10/30/18 10/30/18 History - History PMHx: HIV, , HTN, DEBORAH, vit. D deficient, migraines, fibromyalgia, anxiety, bipolar PSHx: 2 caths, Lumbar spine surgery X2, meniscus repair, 3 C/S, hysterectomy, adenoid/tonsillectomy, hernia repair X2, gastric sleeve, cholecystectomy FHx: Heart disease with aunts/uncles that have had NC at 20-40 yo, Social: no tobacco, drugs, alcohol - Review of Systems General: reports: fever/chills (subjective). denies: weight/appetite/sleep changes Eyes: denies: eye pain, vision changes ENT: reports: nasal congestion, rhinorrhea Respiratory: reports: cough, congestion, shortness of breath Cardiovascular: reports: chest pain. denies: palpitation, edema Gastrointestinal: denies: nausea, vomiting, diarrhea, constipation, abdominal pain Genitourinary: denies: incontinence, dysuria Skin: denies: rashes, lesions Musculoskeletal: denies: pain, tenderness Neurological: reports: numbness, weakness Psychological: reports: anxiety. denies: depression - Vital signs BP: 210/116, Pulse: 58, Resp: 18, O2 sat: 100 on (Room Air), Time: 09/18/2019 22: 50. BP: 190/112, Time: 09/19/2019 00:23. Wt 96 kg BP: 177/107, Pulse: 63, Resp: 18, O2 sat: 99 on (Room Air), Time: 09/19/2019 00: 30. BP: 159/104, MAP: 122, Pulse: 68, Resp: 20, Temp: 97.9 (Oral), Pain: 8, O2 sat: 100 on (Room Air), Time: 09/19/2019 01:20. - Physical Exam Constitutional: NAD, awake, alert and oriented, well developed HEENT: normocephalic and atraumatic, grossly normal vision, TM's clear and intact, grossly normal hearing Neck: supple, FROM Chest: no-tender to palpation, no lesions Heart: RRR, normal S1/S2, pulses present -Heart: 2/6 systolic ejection fraction Lungs: CTAB, no respiratory distress, good air movement Abdomen: soft, non-tender, bowel sounds present Musculoskeletal: normal structure, normal tone Neurological: no focal deficit, CN II-XII intact Skin: no rash/lesions, good turgor Heme/Lymphatic: no unusual bruising or bleeding, no purpura Psychiatric: normal mood and affect, good judgment and insight, intact recent and remote memory FMR H&P: Results - Labs Result Diagrams: 09/19/19 02:11 09/19/19 02:11 Lab results: WBC 5.1 thou/uL (4.8-10.8) 09/19/19 02:11 Hgb 13.0 g/dL (12.0-16.0) 09/19/19 02:11 Hct 40.0 % (36.0-47.0) 09/19/19 02:11 MCV 87.8 fL (78.0-98.0) 09/19/19 02:11 Plt Count 230 thou/uL (130-400) 09/19/19 02:11 Neutrophils % 46.5 % (42.0-75.0) 09/19/19 02:11 Sodium 136 mmol/L (136-145) 09/18/19 23:00 Potassium 3.8 mmol/L (3.5-5.1) 09/18/19 23:00 Chloride 103 mmol/L (98-107) 09/18/19 23:00 Carbon Dioxide 25 mmol/L (22-29) 09/18/19 23:00 BUN 13 mg/dL (7.0-18.7) 09/18/19 23:00 Creatinine 0.94 mg/dL (0.6-1.1) 09/18/19 23:00 Glucose 92 mg/dL (70-105) 09/18/19 23:00 Calcium 8.9 mg/dL (7.8-10.44) 09/18/19 23:00 Total Bilirubin 0.5 mg/dL (0.2-1.2) 09/18/19 23:00 AST 14 U/L (5-34) 09/18/19 23:00 ALT 8 U/L (8-55) 09/18/19 23:00 Alkaline Phosphatase 132 U/L (40-110) H 09/18/19 23:00 Creatine Kinase 49 U/L (29-168) 09/18/19 23:00 Serum Total Protein 8.0 g/dL (6.0-8.3) 09/18/19 23:00 Albumin 3.7 g/dL (3.5-5.0) 09/18/19 23:00 Trop 0.010 - EKG Interpretation EKG: no evidence for acute ischemia - Radiology Interpretation Chest x-ray Status: image reviewed by me, report reviewed by me Additional comment: no acute cardiopulm process FMR H&P: A/P - Plan Atypical chest pain - could be 2/2 HTN, , ACS - SL Nitro, Nitro Paste PRN - monitor sx - trend trops HTN - Start HCTZ 25 mg QD - Hydralazine IV PRN if SBP >180 Aortic stenosis - ECHO to reevaluate - could explain dizziness Vitamin D deficiency - replete HIV - home medications Migraines - home medications Depression/anxiety - Prozac Code status: full Diet NPO GI ppx pepcid DVT ppx SCD Disposition/LOS: Admitted to tele obs, LOS <48 hrs FMR H&P: Upper Level - Plan Date/Time: 09/19/19222 IDarin DO, have evaluated this patient and agree with findings/plan as outlined by international travel consultant resident. Pertinent changes/additions are listed here. This is a 44 yo female with a pmh of HIV, asthma, anxiety/depression, and HTN who presents to the ER with a cc of chest pain. She states the pain started about 3 days ago and is associated with SOB, pre-syncope, and headache. She states the symptoms started shortly after her visit with her PCP on Saturday. She reports at that time she had pain with radiation to her left arm, the SOB, and some confusion. The pain is a pressure in nature and has been intermitent She states she has not taken her HIV medications like she was supposed to this past week. She states she has not seen Dr. Mayer since February and usually sees him every 6 months. Currently, she denies confusion but states she has a headache after the nitro. She states that she feels like the left side of her face is numb and drooping. She also reports some body aches but denies sick contacts. She reports palpitations that she has had since the aortic stenosis diagnosed 3 years ago. In addition, she was taking metoprolol and HCTZ before her gastric sleeve. After that, she was taken off of her BP medications. Objective: Vitals: 177/107, HR 63, RR 18, Temp 97.9, SpO2 99 ra, Wt 95 kg General: Anxious but in NAD HEENT: MMM, eyes PERRLA, AT/NC Cardio: RRR, 2/6 systolic murmur heard best at right sternal border Respiratory: CTAB, non-labored Abdomen: BS present, non-tender to palpation, soft Neuro: CNII-XII grossly intact, 5/5 strength globally Extremities: Trace edema, pulses present, Cap refill <2 seconds Skin: Warm, dry, intact A/P Hypertensive urgency -Admit to tele obs -S/P hydralazine 10mg and 0.4mg nitro in the ER -Will initiate oral antihypertensive and PRN meds with a goal of SBP<170 and DSP <100 -Trending troponins, negative x1 -CXR wnl, no laboratory signs of end organ damage Atypical chest pain -Heart score of 2 -S/P nitro and aspirin -Initial troponin negative, will trend -Lipid panel 08/2019 Cholesterol 230, HDL 49, LDL 161, Triglycerides 95 -EKG NSR, no ST elevation or depression Aortic stenosis -Echo 08/2018 EF 50-55%, mild-mod AV stenosis -Will repeat echo today HIV -Continue home anti virals -Missed some doses and may be feeling the effects of this -I do not believe there is a source of infection at this time but I would consider pursuing this if she had a low grade fever or a change in her headache Vitamin D deficiency, likely related to gastric sleeve surgery/lap ignacio -Level on 08/2019 of 26 -Will replace here Anxiety -Continue clonazepam Complex migraine headaches -Continue topiramate -Tylenol for pain Code: Full Prophylaxis: Lovenox Family: None at bedside Fluids: SL Diet: NPO Disposition: DC in 1-2 days PCP: CAROLYN Sherwood Addendum - Attending - Attending Attestation Date/Time: 09/19/19 3094 I personally evaluated the patient and discussed the management with Dr. Quintero. I agree with the History, Examination, Assessment and Plan documented above with any addition or exceptions noted below. The patient presents with chest pain for several days radiating to the left arm. Trops are negative. Pt's blood pressure has been elevated. HCTZ was restarted. Last cath a few years ago. The patient will have a stress test. Will monitor blood pressure and adjust meds as needed.
[2019-09-19 02:30] LABS: Hemoglobin A1c 4.8 % (4.0-6.0)
[2019-09-19] MEDS ORDERED: Hydrochlorothiazide 25 MG TAB PO SCH (02:30)
[2019-09-19 02:48] LABS: Troponin I 0.015 ng/mL (< 0.028)
[2019-09-19 03:00] LABS: Anion Gap 11 mmol/L (10-20); BUN (Urea Nitrogen) 12 mg/dL (7.0-18.7); Calc. Creatinine Clearance 0 mL/min (70-130); Calcium 9.3 mg/dL (7.8-10.44); Carbon Dioxide 25 mmol/L (22-29); Chloride 104 mmol/L (98-107); Estimated GFR-MDRD Greater than 90; Glucose 87 mg/dL (70-105); Potassium 3.6 mmol/L (3.5-5.1); Sodium 136 mmol/L (136-145)
[2019-09-19 05:27] LABS: Troponin I Less than 0.010 ng/mL (< 0.028)
[2019-09-19] MEDS ORDERED: Acetaminophen 325 MG TAB ONE (05:44)
[2019-09-19] MEDS: Nitroglycerin 2% Ointment 1 INCH/1 GM Packet TOP SCH ×2 (06:02→14:51)
[2019-09-19] MEDS: Acetaminophen 325 MG TAB PO PRN ×2 (06:02→14:51)
[2019-09-19] MEDS ORDERED: FLUoxetine HCl 20 MG CAP PO SCH (09:00)
[2019-09-19] MEDS ORDERED: Famotidine 20 MG TAB ONE (09:18)
[2019-09-19] MEDS ORDERED: clonazePAM 0.5 MG TAB ONE (09:18)
[2019-09-19] MEDS: Famotidine 20 MG TAB PO SCH ×2 (09:38→21:49)
[2019-09-19] MEDS: clonazePAM 0.5 MG TAB PO SCH ×2 (09:39→21:48)
[2019-09-19] MEDS: Hydrochlorothiazide 25 MG TAB PO SCH (09:44)
[2019-09-19] MEDS ORDERED: hydrOXYzine 25 MG TAB PO PRN (10:46)
[2019-09-19 15:34] LABS: SARS-CoV-2 MS2 Positive; SARS-CoV-2 N Gene Negative; SARS-CoV-2 S Gene Negative; SARS-CoV-2 by NAA Not Detected (NotDetected); SARS-CoV-2 orf1ab Negative
[2019-09-19] MEDS ORDERED: Topiramate 25 MG TAB PO SCH (21:00)
[2019-09-19] MEDS ORDERED: Emtricitabine/Tenofov Alafenam [Descovy 200-25 Mg Tablet] PO SCH (21:00)
[2019-09-19] MEDS ORDERED: Dolutegravir Sodium [Tivicay] 50 MG TAB PO SCH (21:00)
[2019-09-19] MEDS: hydrOXYzine 25 MG TAB PO SCH (21:49)
[2019-09-20] MEDS: Nitroglycerin 2% Ointment 1 INCH/1 GM Packet TOP SCH ×4 (00:56→22:28)
[2019-09-20 05:15] LABS: #Eosinphils 0.2 thou/uL (0.0-0.7); #Lymphocytes 2.6 thou/uL (1.20-3.40); #Monocytes 0.5 thou/uL (0.11-0.59); #Neutrophils 2.4 thou/uL (1.40-6.50); %Basophils 0.8 % (0.0-1.0); %Eosinophils 2.8 % (0.0-10.0); %Lymphocytes 45.7 % (21.0-51.0); %Monocytes 8.6 % (0.0-10.0); %Neutrophils 42.1 % (42.0-75.0); Hemoglobin 12.5 g/dL (12.0-16.0); Mean Corpuscular HGB CONC 32.7 g/dL (32.0-36.0); Mean Corpuscular Hemoglobin 28.8 pg (27.0-31.0); Mean Corpuscular Volume 88.3 fL (78.0-98.0); Mean Platelet Volume 7.3 fL (7.4-10.4); Platelet Count 198 thou/uL (130-400); RBC Distribution Width 11.8 % (11.5-14.5); Red Blood Cell (RBC) Count 4.35 mill/uL (4.20-5.40); White Blood Cell (WBC) Count 5.6 thou/uL (4.8-10.8)
[2019-09-20 05:33] LABS: ALT (SGPT) Less than 7 U/L (8-55); AST (SGOT) 15 U/L (5-34); Albumin 3.5 g/dL (3.5-5.0); Alkaline Phosphatase 128 U/L (40-110); Anion Gap 11 mmol/L (10-20); BUN (Urea Nitrogen) 14 mg/dL (7.0-18.7); Bilirubin, Total 0.4 mg/dL (0.2-1.2); Calc. Creatinine Clearance 146 mL/min (70-130); Calcium 8.8 mg/dL (7.8-10.44); Carbon Dioxide 23 mmol/L (22-29); Chloride 106 mmol/L (98-107); Estimated GFR-MDRD Greater than 90; Globulin 4.3 g/dL (2.4-3.5); Glucose 82 mg/dL (70-105); Potassium 3.7 mmol/L (3.5-5.1); Protein, Total 7.8 g/dL (6.0-8.3); Sodium 136 mmol/L (136-145)
--- NOTE | 2019-09-20 06:13 | PDOC.FM ---
- Subjective Subjective: Yesterday, patient went for the first part of her stress test. To be completed today. Patient is resting comfortably in bed. No concerns or complaints today. Denies any CP, SOB, KING, vision changes, abdominal pain, edema. - Objective MAR Reviewed: Yes Vital Signs & Weight: Vital Signs (12 hours) Temp Pulse Resp BP Pulse Ox 09/20/19 05:00 52 L 121/71 09/19/19 19:40 98.5 F 77 20 117/69 96 Weight Weight 94.483 kg I&O: 09/18/19 09/19/19 09/20/19 06:59 06:59 06:59 Intake Total 600 Balance 600 Result Diagrams: 09/20/19 04:23 09/20/19 04:23 Phys Exam - Physical Examination Constitutional: NAD HEENT: moist MMs Neck: full ROM Respiratory: no wheezing, clear to auscultation bilateral Cardiovascular: RRR systolic murmur appreciated Gastrointestinal: soft, non-tender, positive bowel sounds Musculoskeletal: no edema Neurological: moves all 4 limbs Psychiatric: normal affect, A&O x 3 Skin: no rash, normal turgor Dx/Plan - Plan Plan: Atypical chest pain - could be 2/2 HTN, , ACS - SL Nitro, Nitro Paste PRN - monitor sx - trend trops - echo and stress test pending HTN - Start HCTZ 25 mg QD - Hydralazine IV PRN if SBP >180 Aortic stenosis - echo to reevaluate - could explain dizziness HLD -on home Atorvastatin Vitamin D deficiency - on home medications HIV - on home medications Migraines - on home medications Topamax Depression/anxiety - patient on home hydroxyzine qHS and Klonopin BID - patient states she no longer takes an SSRI Code status: full Diet NPO GI ppx pepcid DVT ppx SCD Disposition/LOS: Admitted to tele obs, LOS <48 hrs Addendum - Attending - Attending Attestation Date/Time: 09/20/19826 I personally evaluated the patient and discussed the management with Dr. Miller. I agree with the History, Examination, Assessment and Plan documented above with any addition or exceptions noted below. The patient had the 1st portion of her stress test yesterday and 2nd portion will be today. She is no longer having chest pain. Will d/c home if stress is negative.
[2019-09-20] MEDS ORDERED: Albuterol Sulfate 2.5 mg/3 ml Neb NEB PRN (07:00)
[2019-09-20] MEDS: Calcium Carbonate 500 MG ChewTAB PO SCH (10:05)
[2019-09-20] MEDS: clonazePAM 0.5 MG TAB PO SCH ×2 (10:06→21:31)
[2019-09-20] MEDS: Famotidine 20 MG TAB PO SCH ×2 (10:06→21:31)
[2019-09-20] MEDS: Hydrochlorothiazide 25 MG TAB PO SCH (10:07)
[2019-09-20] MEDS: Multivit, Chewable SF 1 TAB PO SCH (10:07)
--- NOTE | 2019-09-20 10:34 | NM ---
NM Cardiac Stress W EF WF History: Chest pain Comparison: None. Findings: Stress and rest performed after the intravenous administration 27 and 33 mCi technetium 99m sestamibi, respectively. Inferolateral midportion left ventricular scar with low-grade jonh-infarct ischemia. Hypokinesia of the inferior wall. Calculated ejection fraction is 54%. Impression: Inferior wall scar with low-grade john-infarct reversible ischemia.
[2019-09-20] MEDS: Acetaminophen 325 MG TAB PO PRN ×2 (17:14→21:29)
--- NOTE | 2019-09-20 20:40 | CON ---
DATE OF CONSULTATION: 09/20/2019 REASON FOR CONSULTATION: Chest pain. PRIMARY OFFLINE CUTTER: Jorge Michel MD HISTORY OF PRESENT ILLNESS: Mrs. Hawk is a very pleasant 44-year-old female, who comes to the hospital for chest pain. She was admitted yesterday, ruled out with negative enzymes and a stress test was done that showed possible inferior scar. She had the exact same looking stress about 2 years ago at which point, heart catheterization was done and she had no significant coronary artery disease. She follows with Dr. Michel. Most recently, he did an echocardiogram about 6 to 10 months ago and she had an EF about 45%-50% and mild aortic valve stenosis. Mrs. Hawk tells me that she notices that she is just short of breath with minimal exertion. She feels presyncopal at times and is having a lot more episodes of chest pain lately. PAST MEDICAL HISTORY: 1. Mild aortic valve stenosis. 2. Mild coronary artery disease, on heart catheterization just about a year and a half to two years ago. 3. History of HIV. 4. Hypertension. 5. Sleep apnea. 6. Vitamin D deficiency. 7. Migraine headaches. 8. Fibromyalgia. 9. Anxiety. 10. Bipolar. PAST SURGICAL HISTORY: 1. Heart catheterization in the past. 2. Lumbar spine surgery x2. 3. Meniscus repair. 4. Hysterectomy. 5. Adenoidectomy and tonsillectomy. 6. Hernia repair. 7. Gastric sleeve. She has lost about 100 pounds. 8. Cholecystectomy. FAMILY HISTORY: Family on her father's side has needed aortic valve surgery in their 40s. SOCIAL HISTORY: No alcohol, tobacco, or drugs. REVIEW OF SYSTEMS: A 12-point review of systems was done and was found to be negative other than stated in the history of present illness. PHYSICAL EXAMINATION: VITAL SIGNS: Temperature 98.3, pulse 93, respiratory rate 14, saturating 100% on room air, blood pressure 111/65. GENERAL: Awake, alert, oriented x3. No distress. HEENT: Normocephalic and atraumatic. NECK: Supple. LUNGS: Clear. CARDIOVASCULAR: S1 and S2. No S3 or S4. Grade 3/6 systolic murmur at the right upper sternal border. ABDOMEN: Soft, positive bowel sounds. SKIN: Warm and dry. LABORATORY DATA: Laboratory work was reviewed. White count of 5, hemoglobin of 12, hematocrit of 38, and platelet count of 198. Chemistry was unremarkable except for alkaline phosphatase was a little bit high at 128, albumin of 3.5. Troponin was negative x3. CP: COVID-19 PCR was negative. Echocardiogram done today showed an EF of 55%. There is normal diastolic function. The aortic valve is calcified with decreased opening and there is mild to moderate aortic valve stenosis. Valve area is 1.0 sq cm. There is a mean gradient of 18 mmHg and a max velocity of 2.8 m/sec. There is unchanged from the recent echocardiogram. ASSESSMENT/PLAN: 1. Chest pain. 2. Abnormal stress test. This is unlikely to be an issue. She had normal heart catheterization in the setting of exactly the same looking stress test in the past. 3. Aortic stenosis. Moderate range on echocardiogram today. PLAN: 1. We will have to make sure that her aortic valve stenosis is not the cause of her current symptoms. Echocardiogram is not completely adequate and cannot see the valve fully and with full detail because of her body habitus. The best way to do this would be with a transesophageal echo. At this time, we spoke with her about the risks and benefits of the procedure and she agrees to proceed. 2. Dr. Michel will perform this procedure tomorrow. Thank you for letting us to participate in the care of your patient. Dr. Michel will follow up in the morning. Job ID: [id number]
[2019-09-20] MEDS ORDERED: Atorvastatin Calcium 40 MG TAB PO SCH (21:00)
[2019-09-20] MEDS ORDERED: Topiramate 25 MG TAB PO SCH (21:00)
[2019-09-20] MEDS: hydrOXYzine 25 MG TAB PO SCH (21:31)
[2019-09-21] MEDS: Nitroglycerin 2% Ointment 1 INCH/1 GM Packet TOP SCH ×2 (06:00→15:10)
--- NOTE | 2019-09-21 06:21 | PDOC.FM ---
- Subjective Subjective: Patient is resting comfortably in bed this morning. She is on her phone. Denies KING, vision changes, CP, SOB, abdominal pain. No new concerns or complaints. - Objective MAR Reviewed: Yes Vital Signs & Weight: Vital Signs (12 hours) Temp Pulse Resp BP Pulse Ox 09/21/19 04:26 97.7 F 75 16 100/66 99 09/20/19 22:56 88 09/20/19 20:03 97.6 F 95 12 137/82 100 Weight Weight 95.844 kg I&O: 09/19/19 09/20/19 09/21/19 06:59 06:59 06:59 Intake Total 600 750 Balance 600 750 Result Diagrams: 09/20/19 04:23 09/20/19 04:23 Phys Exam - Physical Examination Constitutional: NAD HEENT: moist MMs Neck: supple, full ROM Respiratory: no wheezing, clear to auscultation bilateral Cardiovascular: RRR, no significant murmur Gastrointestinal: soft, non-tender, positive bowel sounds Musculoskeletal: no edema, pulses present Neurological: normal sensation, moves all 4 limbs Psychiatric: normal affect, A&O x 3 Skin: normal turgor Dx/Plan - Plan Plan: Atypical chest pain - could be 2/2 HTN, , ACS - SL Nitro, Nitro Paste PRN - monitor sx - trend trops - cardiology on board, appreciate the recs - echo showed EF 55-60%, no diastolic dysfunction, calcified aortic valve, mild aortic regurgitation - stress test showed inferior wall scar with low grade john infarct reversible ischemia, which is unchanged from her last stress as per cardiology. At time of her last cath, no significant CAD noted -plan for ANYA today by Dr Michel, as echo was not adequate HTN - Start HCTZ 25 mg QD - Hydralazine IV PRN if SBP >180 Aortic stenosis - echo to reevaluate, see above - could explain dizziness HLD -on home Atorvastatin Vitamin D deficiency - on home medications HIV - on home medications Migraines - on home medications Topamax Depression/anxiety - patient on home hydroxyzine qHS and Klonopin BID - patient states she no longer takes an SSRI Code status: full Diet NPO GI ppx pepcid DVT ppx SCD Addendum - Attending - Attending Attestation Date/Time: 09/21/19 1208 I personally evaluated the patient and discussed the management with Dr. Miller. I agree with the History, Examination, Assessment and Plan documented above with any addition or exceptions noted below. Patient overall stable. Awaiting further cardiology recs after ANYA this morning.
[2019-09-21] MEDS: Calcium Carbonate 500 MG ChewTAB PO SCH (09:15)
[2019-09-21] MEDS: Hydrochlorothiazide 25 MG TAB PO SCH (09:15)
[2019-09-21] MEDS: Multivit, Chewable SF 1 TAB PO SCH (09:15)
[2019-09-21] MEDS: clonazePAM 0.5 MG TAB PO SCH (09:16)
[2019-09-21] MEDS: Famotidine 20 MG TAB PO SCH (09:16)
[2019-09-21 09:21] VITALS: BMI 35.2
[2019-09-21] MEDS ORDERED: Lidocaine 1% PF 5 ML VIAL ONE (10:07)
[2019-09-21] MEDS ORDERED: PROPOFOL 200 MG/20 ML VIAL ONE (10:07)
[2019-09-21] MEDS ORDERED: PROPOFOL 20 ML ONE (10:26)
[2019-09-21 12:15] VITALS: TEMP 97.7
--- NOTE | 2019-09-21 13:26 | OP ---
DATE OF PROCEDURE: 09/21/2019 PROCEDURE PERFORMED: Transesophageal echocardiogram. INDICATION: This is a 44-year-old woman with aortic stenosis. DESCRIPTION OF PROCEDURE: The patient was taken to the PACU. The patient was sedated by Anesthesiology. A transesophageal probe was placed into the distal esophagus and stomach. Echocardiographic images were obtained. The transesophageal probe was removed. FINDINGS: 1. Mild decrease in left ventricular systolic function. 2. The aortic valve leaflets are thickened and one cusp has adequate leaflet excursion. 3. Mild aortic stenosis. 4. Mild aortic regurgitation. 5. Mild mitral regurgitation. 6. Mild tricuspid regurgitation. 7. Atherosclerotic debris in the descending aorta. IMPRESSION: Mild aortic stenosis with reduced leaflet excursion. Job ID: [id number] MTDD
[2019-09-21 15:14] LABS: %CD4 (Helper/Inducer) 41.9 % (30.8-58.5); Absolute CD4 922 /uL (359-1519); Lymphocytes/Gated Cell Count 2.2 x10E3/uL (0.7-3.1); Total Lymphocyte 42 % (Not Estab.); WBC Total Count 5.3 x10E3/uL (3.4-10.8)
[2019-09-21 16:40] VITALS: BP 125/63
--- NOTE | 2019-09-22 06:24 | DIS ---
DATE OF ADMISSION: 09/19/2019 DATE OF DISCHARGE: 09/21/2019 RESIDENT: Leigh Miller, PGY-1. ADMITTING ATTENDING: Meme Dewitt MD. DISCHARGE ATTENDING: Lawson Cintron MD. CONSULTS: Cardiology, Dr. Tse. PROCEDURES: Stress test, which showed inferior wall scar with low-grade john-infarct reversible ischemia. Echocardiogram showed ejection fraction of 55% to 60% with normal diastolic function, trace mitral regurgitation, mild tricuspid regurgitation, calcified aortic valve with decreased cusp opening, mild aortic regurg and [id number] aortic valve stenosis. Subsequent ANYA was obtained, because of inadequate view of the aortic valve on echo, which showed mild aortic stenosis with reduced leaflet excursion. PRIMARY DIAGNOSIS: Atypical chest pain, likely secondary to aortic stenosis. SECONDARY DIAGNOSES: 1. Hypertension. 2. Aortic stenosis. 3. Hyperlipidemia. 4. Vitamin D deficiency. 5. Human immunodeficiency virus. 6. Migraine. 7. Depression/anxiety. DISCHARGE MEDICATIONS: Include: 1. Hydrochlorothiazide 25 mg p.o. daily. 2. Hydroxyzine 25 mg p.o. at bedtime. 3. Proventil 2 puff inhalation every 4 hours p.r.n. 4. Nitroglycerin 0.4 mg sublingual p.r.n. 5. Klonopin 0.5 mg p.o. b.i.d. 6. Dolutegravir sodium AKA Tivicay 1 tab oral every morning. 7. Descovy 200-25 mg tablet, one tab p.o. every evening. 8. Atorvastatin 40 mg p.o. at bedtime. 9. Topamax 75 mg p.o. at bedtime. 10. Multivitamin 2 tabs p.o. daily. 11. Calcium carbonate/vitamin D3 two tablets p.o. daily. DISCONTINUED MEDICATIONS: None. HISTORY OF PRESENT ILLNESS/HOSPITAL COURSE: The patient is a 44-year-old with past as noted above, who presented for chest pain. She came to the ED 2 days prior to admission for similar complaints at the night of admission. Since coming to the ED 2 days ago, she says that she has been feeling "weird" overall. She said her chest pain is tight and radiates down her left arm and on her side. It occurs while at rest and while exerting herself. Exertion does make the pain worse and she also reports intermittent dizziness during this time. She also endorses a persistent headache. On presentation to the ED, her BP was in the 200s systolic , trended down to the 150s after 10mg of hydralazine. The patient was admitted for atypical chest pain and to keep an eye on her blood pressure and hospital stay was uneventful. Vitals remained stable including blood pressures that were in the 140s and 150s. The patient denied any more episodes of chest pain, headache, or dizziness during her stay. Cardiology was consulted, because of her abnormal stress test and subsequent procedures were done as listed above. Cath was not indicated as per cardiology since her stress test read was the same as it was in the past and she went for a cath, which showed no significant CAD. Plan is to follow up in [address] Michel. DISPOSITION: Stable. DISCHARGE INSTRUCTIONS: Location: Home. Diet: Heart healthy diet. Activity: Activity as tolerated. Followup: Follow up with PCP in 7-10 days and [address] up Dr. Michel in 1 month. Job ID: [id number] [facility]
== END 2019-09-21 16:55 | disposition home or self-care (01) ==
LOC: ERS 22:33 → ERHOLD 09-19 00:33 → 2NO 09-19 11:25
PROVIDERS: ADMIT Family Medicine; ATTEND Family Medicine
PROC: B24BZZ4 Ultrasonography of Heart with Aorta, Transesophageal (ICD-10-PCS; principal; 2019-09-21)
DX: R07.89 Other chest pain (principal); I35.0 Nonrheumatic aortic (valve) stenosis; I08.3 Combined rheumatic disorders of mitral, aortic and tricuspid valves; I70.0 Atherosclerosis of aorta; I16.0 Hypertensive urgency; I10 Essential (primary) hypertension; E55.9 Vitamin D deficiency, unspecified; G43.809 Other migraine, not intractable, without status migrainosus; F31.9 Bipolar disorder, unspecified; F41.9 Anxiety disorder, unspecified; G47.33 Obstructive sleep apnea (adult) (pediatric); M79.7 Fibromyalgia; J45.909 Unspecified asthma, uncomplicated; I25.2 Old myocardial infarction; G62.9 Polyneuropathy, unspecified; I25.10 Atherosclerotic heart disease of native coronary artery without angina pectoris; R94.39 Abnormal result of other cardiovascular function study; Z79.899 Other long term (current) drug therapy; Z88.8 Allergy status to other drugs, medicaments and biological substances; Z21 Asymptomatic human immunodeficiency virus [HIV] infection status; Z98.84 Bariatric surgery status; Z20.828 Contact with and (suspected) exposure to other viral communicable diseases
CPT/HCPCS: 71045; 78452; 80048; 80053 ×2; 82550; 83036; 84484 ×3; 85025 ×3; 85048; 86361; 93005; 93017; 93306; 93312; 94760; 96374; 99285; A9500; G0378 ×4; U0003; 36415; 87635; J0360; J2704

== ENCOUNTER 2020-01-22 23:20 | Emergency (ER) | payer MEDICARE, MEDICAID ==
[2020-01-22] MEDS ORDERED: Labetalol HCl 100 MG/20 ML VIAL ONE (23:52)
[2020-01-22 23:59] LABS: #Basophils 0.1 thou/uL (0.0-0.2); #Eosinphils 0.1 thou/uL (0.0-0.7); #Lymphocytes 2.6 thou/uL (1.20-3.40); #Monocytes 0.6 thou/uL (0.11-0.59); #Neutrophils 4.5 thou/uL (1.40-6.50); %Basophils 0.9 % (0.0-1.0); %Eosinophils 1.9 % (0.0-10.0); %Lymphocytes 32.5 % (21.0-51.0); %Monocytes 7.7 % (0.0-10.0); Hemoglobin 12.4 g/dL (12.0-16.0); Mean Corpuscular HGB CONC 33.4 g/dL (32.0-36.0); Mean Corpuscular Hemoglobin 30.1 pg (27.0-31.0); Platelet Count 208 thou/uL (130-400); Red Blood Cell (RBC) Count 4.11 mill/uL (4.20-5.40); White Blood Cell (WBC) Count 7.9 thou/uL (4.8-10.8)
[2020-01-23 00:26] LABS: ALT (SGPT) Less than 7 U/L (8-55); AST (SGOT) 16 U/L (5-34); Albumin 3.6 g/dL (3.5-5.0); Alkaline Phosphatase 143 U/L (40-110); Anion Gap 11 mmol/L (10-20); BUN (Urea Nitrogen) 11 mg/dL (7.0-18.7); Bilirubin, Total 0.4 mg/dL (0.2-1.2); Calc. Creatinine Clearance 0 mL/min (70-130); Calcium 8.7 mg/dL (7.8-10.44); Carbon Dioxide 25 mmol/L (22-29); Chloride 107 mmol/L (98-107); Glucose 121 mg/dL (70-105); Lipase 27 U/L (8-78); Potassium 3.3 mmol/L (3.5-5.1); Protein, Total 7.6 g/dL (6.0-8.3); Sodium 140 mmol/L (136-145)
== END 2020-01-23 01:08 | disposition home or self-care (01) ==
LOC: ERS 23:20
DX: R40.0 Somnolence (principal); T43.215A Adverse effect of selective serotonin and norepinephrine reuptake inhibitors, initial encounter; I25.10 Atherosclerotic heart disease of native coronary artery without angina pectoris; I25.2 Old myocardial infarction; I38 Endocarditis, valve unspecified; I35.0 Nonrheumatic aortic (valve) stenosis; G47.30 Sleep apnea, unspecified; E55.9 Vitamin D deficiency, unspecified; B20 Human immunodeficiency virus [HIV] disease; G62.9 Polyneuropathy, unspecified; Z79.899 Other long term (current) drug therapy
CPT/HCPCS: 80053; 83690; 84484; 85025; 93005; 94760; 96374

== ENCOUNTER 2020-02-19 17:53 | Emergency (ER) | payer MEDICARE, OTHER, MEDICAID ==
[2020-02-20 00:51] LABS: SARS-CoV-2 MS2 Positive; SARS-CoV-2 N Gene Positive; SARS-CoV-2 S Gene Positive; SARS-CoV-2 by NAA DETECTED (NotDetected); SARS-CoV-2 orf1ab Positive
== END 2020-02-19 18:54 | disposition home or self-care (01) ==
LOC: ERS 17:53
DX: U07.1 COVID-19 (principal); I25.2 Old myocardial infarction; I10 Essential (primary) hypertension; G47.30 Sleep apnea, unspecified; Z86.73 Personal history of transient ischemic attack (TIA), and cerebral infarction without residual deficits
CPT/HCPCS: 99283; U0003; 87635

== ENCOUNTER 2020-02-20 20:56 | Emergency (ER) | payer MEDICARE, OTHER, MEDICAID ==
--- NOTE | 2020-02-20 21:33 | RAD ---
EXAM: CHEST ONE VIEW HISTORY: Chest pain and shortness of breath. COMPARISON: 09/18/2019 FINDINGS: Cardiac silhouette and pulmonary vasculature are within normal limits for the portable technique of t he study The lungs are clear. Chest is stable compared to prior exam. IMPRESSION: No acute cardiopulmonary process.
[2020-02-20 21:54] LABS: #Lymphocytes 1.3 thou/uL (1.20-3.40); #Monocytes 0.3 thou/uL (0.11-0.59); #Neutrophils 1.7 thou/uL (1.40-6.50); %Basophils 0.5 % (0.0-1.0); %Eosinophils 0.7 % (0.0-10.0); %Lymphocytes 38.4 % (21.0-51.0); %Monocytes 9.5 % (0.0-10.0); %Neutrophils 50.9 % (42.0-75.0); Hemoglobin 12.4 g/dL (12.0-16.0); Mean Corpuscular HGB CONC 33.8 g/dL (32.0-36.0); Mean Corpuscular Hemoglobin 30.2 pg (27.0-31.0); Mean Corpuscular Volume 89.3 fL (78.0-98.0); Mean Platelet Volume 7.3 fL (7.4-10.4); Platelet Count 160 thou/uL (130-400); RBC Distribution Width 10.7 % (11.5-14.5); Red Blood Cell (RBC) Count 4.13 mill/uL (4.20-5.40); White Blood Cell (WBC) Count 3.4 thou/uL (4.8-10.8)
[2020-02-20 22:14] LABS: ALT (SGPT) 10 U/L (8-55); AST (SGOT) 21 U/L (5-34); Albumin 3.6 g/dL (3.5-5.0); Alkaline Phosphatase 165 U/L (40-110); Anion Gap 10 mmol/L (10-20); BUN (Urea Nitrogen) 10 mg/dL (7.0-18.7); Bilirubin, Total 0.4 mg/dL (0.2-1.2); Calc. Creatinine Clearance 0 mL/min (70-130); Calcium 8.3 mg/dL (7.8-10.44); Carbon Dioxide 27 mmol/L (22-29); Chloride 105 mmol/L (98-107); Globulin 4.2 g/dL (2.4-3.5); Glucose 95 mg/dL (70-105); Potassium 3.5 mmol/L (3.5-5.1); Protein, Total 7.8 g/dL (6.0-8.3); Sodium 138 mmol/L (136-145)
== END 2020-02-21 00:05 | disposition home or self-care (01) ==
LOC: ERS 20:56
DX: U07.1 COVID-19 (principal); Z79.899 Other long term (current) drug therapy; I25.10 Atherosclerotic heart disease of native coronary artery without angina pectoris; I25.2 Old myocardial infarction; I10 Essential (primary) hypertension; G47.30 Sleep apnea, unspecified; B20 Human immunodeficiency virus [HIV] disease
CPT/HCPCS: 36415; 71045; 80053; 84484; 85025; 85379; 93005

== ENCOUNTER 2020-03-04 20:30 | Emergency (ER) | payer MEDICARE, OTHER, MEDICAID ==
[~2020-03-04 20:30] MED LIST changes: -ISOVUE-370 76%-LOCM 1 ML ONE; +Iopamidol-370 76% 500 ML 1 ML ONE
--- NOTE | 2020-03-04 21:24 | RAD ---
PORTABLE CHEST ONE VIEW: 03/04/20 at 9:12 p.m. HISTORY: Chest pain. COMPARISON: 02/20/20. FINDINGS: The heart size is normal. No lobar consolidation, pneumothoraces or pleural effusions are seen. IMPRESSION: No radiographic evidence of acute cardiopulmonary process. POS: OFF
[2020-03-04] MEDS ORDERED: Nitroglycerin 2% Ointment 1 INCH/1 GM Packet ONE (21:28)
[2020-03-04 21:38] LABS: #Eosinphils 0.1 thou/uL (0.0-0.7); #Lymphocytes 2.5 thou/uL (1.20-3.40); #Monocytes 0.6 thou/uL (0.11-0.59); #Neutrophils 4.2 thou/uL (1.40-6.50); %Basophils 0.3 % (0.0-1.0); %Eosinophils 1.6 % (0.0-10.0); %Lymphocytes 33.7 % (21.0-51.0); %Monocytes 7.8 % (0.0-10.0); %Neutrophils 56.7 % (42.0-75.0); Hemoglobin 11.7 g/dL (12.0-16.0); Mean Corpuscular HGB CONC 34.4 g/dL (32.0-36.0); Mean Corpuscular Hemoglobin 29.9 pg (27.0-31.0); Mean Platelet Volume 6.4 fL (7.4-10.4); Platelet Count 333 thou/uL (130-400); RBC Distribution Width 10.7 % (11.5-14.5); Red Blood Cell (RBC) Count 3.91 mill/uL (4.20-5.40); White Blood Cell (WBC) Count 7.4 thou/uL (4.8-10.8)
[2020-03-04 21:59] LABS: ALT (SGPT) 8 U/L (8-55); AST (SGOT) 15 U/L (5-34); Albumin 3.3 g/dL (3.5-5.0); Alkaline Phosphatase 131 U/L (40-110); Anion Gap 13 mmol/L (10-20); BUN (Urea Nitrogen) 10 mg/dL (7.0-18.7); Bilirubin, Total 0.3 mg/dL (0.2-1.2); Calc. Creatinine Clearance 0 mL/min (70-130); Calcium 8.5 mg/dL (7.8-10.44); Carbon Dioxide 28 mmol/L (22-29); Chloride 105 mmol/L (98-107); Globulin 3.9 g/dL (2.4-3.5); Glucose 91 mg/dL (70-105); Potassium 3.8 mmol/L (3.5-5.1); Protein, Total 7.2 g/dL (6.0-8.3); Sodium 142 mmol/L (136-145)
[2020-03-04 22:01] LABS: Bilirubin Negative (Negative); Blood, Urine Negative (Negative); Clarity Clear (Clear); Glucose, Urine (Dipstick) Normal (Negative); Ketone, Urine Negative (Negative); Leukocyte Negative Leu/uL (Negative); Nitrite Negative (Negative); Protein, Urine (Dipstick) Negative (Neg-Trace); Specific Gravity, Urine 1.013 (1.002-1.036); Urobilinogen Normal mg/dL (Less than 2)
--- NOTE | 2020-03-04 22:29 | CT ---
CT BRAIN WITHOUT CONTRAST: HISTORY: Headache Comparison 02/11/2018 FINDINGS: No evidence of acute infarct, hemorrhage, midline shift or abnormal extra-axial fluid collections is seen. The ventricular size is appropriate and the basilar cisterns are patent. The bony calvarium is intact. The mastoid air cells are well aerated. There is mild mucosal disease in the paranasal sin uses. IMPRESSION: No CT evidence of acute intracranial process.
--- NOTE | 2020-03-04 22:40 | CT ---
CT PULMONARY ANGIOGRAM WITH IV CONTRAST AND 3-D POSTPROCESSING: HISTORY:Chest pain, shortness of breath, weakness, cough, positive d-dimer,COVID 19 Positive FINDINGS: There is good contrast opacification of the pulmonary arterial vasculature without filling defects to suggest pulmonary embolism. The thoracic aorta is opacified without aneurysm or dissection. No pleural or pericardial effusions are seen. No pneumothoraces, lobar consolidation or lung nodules are noted. Patchy multifocal areas of groundgl ass opacities are seen bilaterally. There are mild degenerative changes in the spine. Upper abdominal tomograms demonstrate changes of cholecystectomy and gastric surgery. IMPRESSION: 1. No CT evidence of pulmonary embolism. 2. COVID 19 pneumonia.
== END 2020-03-04 23:59 | disposition home or self-care (01) ==
LOC: ERS 20:30
DX: U07.1 COVID-19 (principal); I25.2 Old myocardial infarction; I10 Essential (primary) hypertension; Z86.73 Personal history of transient ischemic attack (TIA), and cerebral infarction without residual deficits; B20 Human immunodeficiency virus [HIV] disease
CPT/HCPCS: 70450; 71045; 71275; 80053; 81003; 84484; 85025; 85379; 93005; Q9967

== ENCOUNTER 2020-10-06 | Outpatient (CLI) | payer MEDICARE, MEDICAID | END 2020-10-06 15:53 | disposition home or self-care (01) | DX: M25.511 Pain in right shoulder (principal) ==

== ENCOUNTER 2020-10-10 15:19 | Emergency (ER) | payer MEDICARE, MEDICAID ==
[2020-10-10 17:24] LABS: #Eosinphils 0.2 thou/uL (0.0-0.7); #Lymphocytes 2.8 thou/uL (1.20-3.40); #Monocytes 0.5 thou/uL (0.11-0.59); #Neutrophils 3.9 thou/uL (1.40-6.50); %Basophils 0.4 % (0.0-1.0); %Eosinophils 2.1 % (0.0-10.0); %Lymphocytes 37.7 % (21.0-51.0); %Neutrophils 52.7 % (42.0-75.0); Hemoglobin 10.7 g/dL (12.0-16.0); Mean Corpuscular HGB CONC 33.7 g/dL (32.0-36.0); Mean Corpuscular Hemoglobin 29.3 pg (27.0-31.0); Mean Platelet Volume 6.7 fL (7.4-10.4); Platelet Count 211 thou/uL (130-400); RBC Distribution Width 12.3 % (11.5-14.5); Red Blood Cell (RBC) Count 3.66 mill/uL (4.20-5.40); White Blood Cell (WBC) Count 7.4 thou/uL (4.8-10.8)
[2020-10-10 17:49] LABS: ALT (SGPT) 7 U/L (8-55); AST (SGOT) 15 U/L (5-34); Albumin 3.3 g/dL (3.5-5.0); Alkaline Phosphatase 128 U/L (40-110); Anion Gap 7 mmol/L (10-20); BUN (Urea Nitrogen) 11 mg/dL (7.0-18.7); Bilirubin, Total 0.3 mg/dL (0.2-1.2); Calc. Creatinine Clearance 0 mL/min (70-130); Calcium 8.7 mg/dL (7.8-10.44); Carbon Dioxide 29 mmol/L (22-29); Chloride 105 mmol/L (98-107); Globulin 4.8 g/dL (2.4-3.5); Glucose 85 mg/dL (70-105); Potassium 3.8 mmol/L (3.5-5.1); Protein, Total 8.1 g/dL (6.0-8.3); Sodium 137 mmol/L (136-145)
[2020-10-10] MEDS ORDERED: Lorazepam 2 MG/ML VIAL ONE (18:18)
== END 2020-10-10 20:27 | disposition home or self-care (01) ==
LOC: ERS 15:19
DX: M54.5 Low back pain (principal); G89.29 Other chronic pain; I10 Essential (primary) hypertension; B20 Human immunodeficiency virus [HIV] disease; Z79.899 Other long term (current) drug therapy
CPT/HCPCS: 36415; 72148; 80053; 85025; 93005; 96374; J2060

== ENCOUNTER 2020-10-14 14:50 | Emergency (ER) | payer MEDICARE, OTHER ==
[2020-10-14] MEDS ORDERED: Acetaminophen 325 MG TAB ONE (17:36)
[2020-10-14] MEDS ORDERED: Ibuprofen 800 MG TAB ONE (17:36)
== END 2020-10-14 17:47 | disposition home or self-care (01) ==
LOC: ERS 14:50
DX: I10 Essential (primary) hypertension (principal); M54.5 Low back pain; M79.601 Pain in right arm; I25.10 Atherosclerotic heart disease of native coronary artery without angina pectoris; G43.909 Migraine, unspecified, not intractable, without status migrainosus; B20 Human immunodeficiency virus [HIV] disease; E55.9 Vitamin D deficiency, unspecified; G47.30 Sleep apnea, unspecified; M79.7 Fibromyalgia; Z79.899 Other long term (current) drug therapy; W19.XXXA Unspecified fall, initial encounter
CPT/HCPCS: 93005

== ENCOUNTER 2020-11-02 13:52 | Outpatient (CLI) | payer MEDICARE, MEDICAID | END 2020-11-02 13:53 | disposition home or self-care (01) | LOC: BICULT 13:52 | PROVIDERS: ATTEND Neurological Surgery | DX: N83.202 Unspecified ovarian cyst, left side (principal); N83.8 Other noninflammatory disorders of ovary, fallopian tube and broad ligament | CPT/HCPCS: 76856 ==

== ENCOUNTER 2020-11-11 09:05 | Outpatient (CLI) | payer MEDICARE, MEDICAID ==
[2020-11-12 17:41] LABS: SARS-CoV-2 PCR by NAA Not Detected (NotDetected)
== END 2020-11-11 09:06 | disposition home or self-care (01) ==
LOC: LABBT 09:05
PROVIDERS: ATTEND Neurological Surgery
DX: Z01.812 Encounter for preprocedural laboratory examination (principal); M54.16 Radiculopathy, lumbar region; Z20.822 Contact with and (suspected) exposure to COVID-19
CPT/HCPCS: U0003; U0005

== ENCOUNTER 2020-11-16 05:37 | Day surgery (SDC) | payer MEDICARE, MEDICAID ==
[2020-11-15 10:56] VITALS: BMI 37.4
[2020-11-16] MEDS ORDERED: Bupivacaine PF 0.5% 30 ML VIAL ONE (05:58)
[2020-11-16] MEDS ORDERED: Thrombin 5000 UNITS/5 ML VIAL ONE (05:58)
[2020-11-16] MEDS ORDERED: EPINEPHrine 1 MG/ML AMP ONE (05:58)
[2020-11-16] MEDS ORDERED: ceFAZolin 2 GM/DEX 5% 100 ML BAG ONE ×4 (06:42→10:24)
[2020-11-16] MEDS ORDERED: PROPOFOL 200 MG/20 ML VIAL ONE (06:47)
[2020-11-16] MEDS ORDERED: Ondansetron PF 4 MG/2 ML Vial ONE (06:47)
[2020-11-16] MEDS ORDERED: Labetalol HCl 100 MG/20 ML VIAL ONE (06:47)
[2020-11-16] MEDS ORDERED: Dexamethasone 20 MG/5 ML VIAL ONE (06:47)
[2020-11-16] MEDS ORDERED: Rocuronium Bromide 10 MG/ML (10ML VIAL) ONE (06:47)
[2020-11-16] MEDS ORDERED: Lidocaine 1% PF 5 ML VIAL ONE (06:47)
[2020-11-16] MEDS ORDERED: Ketorolac Tromethamine 30 MG/ML VIAL ONE (06:47)
[2020-11-16] MEDS ORDERED: Famotidine/PF 20 mg/2ml Vial ONE (06:48)
[2020-11-16] MEDS ORDERED: Fentanyl 100 MCG/2 ML VIAL ONE ×2 (06:48→08:37)
[2020-11-16] MEDS ORDERED: Midazolam HCl 2 mg/2 ml Vial ONE (06:48)
[2020-11-16] MEDS ORDERED: Albuterol Sulfate HFA (OR ONLY) ONE (06:57)
[2020-11-16] MEDS ORDERED: SUGAMMADEX SODIUM 200 MG/2 ML VIAL ONE (08:22)
[2020-11-16] MEDS ORDERED: HYDROmorphone 2 MG/ML VIAL ONE (08:37)
[2020-11-16] MEDS ORDERED: HYDROcodone/Acetaminophen 5/325 mg Tablet ONE ×2 (10:23→11:12)
== END 2020-11-16 11:50 | disposition home or self-care (01) ==
LOC: SDC 05:37
PROVIDERS: ATTEND Neurological Surgery
PROC: 01NB0ZZ Release Lumbar Nerve, Open Approach (ICD-10-PCS; principal; 2020-11-16)
DX: M48.061 Spinal stenosis, lumbar region without neurogenic claudication (principal); M51.16 Intervertebral disc disorders with radiculopathy, lumbar region; M43.17 Spondylolisthesis, lumbosacral region; G47.33 Obstructive sleep apnea (adult) (pediatric); I10 Essential (primary) hypertension; E78.5 Hyperlipidemia, unspecified; I25.2 Old myocardial infarction; K22.4 Dyskinesia of esophagus; K44.9 Diaphragmatic hernia without obstruction or gangrene; F14.11 Cocaine abuse, in remission; G89.29 Other chronic pain; M10.9 Gout, unspecified; M19.90 Unspecified osteoarthritis, unspecified site; N94.89 Other specified conditions associated with female genital organs and menstrual cycle; J45.909 Unspecified asthma, uncomplicated; Z21 Asymptomatic human immunodeficiency virus [HIV] infection status; Z87.891 Personal history of nicotine dependence; Z79.899 Other long term (current) drug therapy; Z88.8 Allergy status to other drugs, medicaments and biological substances; Z98.84 Bariatric surgery status
CPT/HCPCS: 76000; J0171; J1100; J1170; J1885; J2250; J2405; J2704; J3010; S0020; S0028

== ENCOUNTER 2020-12-15 07:14 | Emergency (ER) | payer MEDICARE, MEDICAID ==
[2020-12-15] MEDS ORDERED: Lorazepam 1 MG TAB ONE (07:41)
[2020-12-15] MEDS ORDERED: cloNIDine 0.1 MG TAB ONE (07:42)
[2020-12-15] MEDS ORDERED: Lorazepam 2 MG/ML VIAL ONE (07:44)
[2020-12-15 07:50] LABS: #Basophils 0.1 thou/uL (0.0-0.2); #Eosinphils 0.2 thou/uL (0.0-0.7); #Lymphocytes 2.3 thou/uL (1.20-3.40); #Monocytes 0.5 thou/uL (0.11-0.59); #Neutrophils 3.4 thou/uL (1.40-6.50); %Basophils 1.6 % (0.0-1.0); %Eosinophils 2.5 % (0.0-10.0); %Lymphocytes 35.2 % (21.0-51.0); %Monocytes 7.6 % (0.0-10.0); %Neutrophils 53.1 % (42.0-75.0); Hemoglobin 11.9 g/dL (12.0-16.0); Mean Corpuscular HGB CONC 35.3 g/dL (32.0-36.0); Mean Corpuscular Hemoglobin 30.5 pg (27.0-31.0); Mean Corpuscular Volume 86.4 fL (78.0-98.0); Mean Platelet Volume 7.1 fL (7.4-10.4); Platelet Count 220 thou/uL (130-400); RBC Distribution Width 11.6 % (11.5-14.5); White Blood Cell (WBC) Count 6.5 thou/uL (4.8-10.8)
[2020-12-15 08:12] LABS: ALT (SGPT) 7 U/L (8-55); AST (SGOT) 16 U/L (5-34); Albumin 3.5 g/dL (3.5-5.0); Alkaline Phosphatase 146 U/L (40-110); Anion Gap 13 mmol/L (10-20); BUN (Urea Nitrogen) 7 mg/dL (7.0-18.7); Bilirubin, Total 0.5 mg/dL (0.2-1.2); CK (CPK) 46 U/L (29-168); Calc. Creatinine Clearance 0 mL/min (70-130); Carbon Dioxide 25 mmol/L (22-29); Chloride 101 mmol/L (98-107); Globulin 3.9 g/dL (2.4-3.5); Glucose 97 mg/dL (70-105); Potassium 3.4 mmol/L (3.5-5.1); Protein, Total 7.4 g/dL (6.0-8.3); Sodium 136 mmol/L (136-145)
== END 2020-12-15 10:20 | disposition home or self-care (01) ==
LOC: ERS 07:14
DX: F41.9 Anxiety disorder, unspecified (principal); I10 Essential (primary) hypertension; G47.30 Sleep apnea, unspecified; Z21 Asymptomatic human immunodeficiency virus [HIV] infection status; G43.909 Migraine, unspecified, not intractable, without status migrainosus
CPT/HCPCS: 36415; 80053; 82550; 84484; 85025; 93005; 96374; J2060

== ENCOUNTER 2020-12-19 10:54 | Emergency (ER) | payer MEDICARE, MEDICAID ==
[2020-12-19] MEDS ORDERED: Morphine 4 MG/ML VIAL ONE (11:39)
[2020-12-19 12:03] LABS: #Eosinphils 0.1 thou/uL (0.0-0.7); #Lymphocytes 1.7 thou/uL (1.20-3.40); #Monocytes 0.6 thou/uL (0.11-0.59); #Neutrophils 3.5 thou/uL (1.40-6.50); %Basophils 0.4 % (0.0-1.0); %Eosinophils 2.1 % (0.0-10.0); %Monocytes 10.4 % (0.0-10.0); Hemoglobin 11.7 g/dL (12.0-16.0); Mean Corpuscular HGB CONC 33.7 g/dL (32.0-36.0); Mean Corpuscular Hemoglobin 29.7 pg (27.0-31.0); Mean Corpuscular Volume 88.2 fL (78.0-98.0); Mean Platelet Volume 7.2 fL (7.4-10.4); Platelet Count 216 thou/uL (130-400); RBC Distribution Width 11.8 % (11.5-14.5); Red Blood Cell (RBC) Count 3.95 mill/uL (4.20-5.40)
[2020-12-19 12:27] LABS: ALT (SGPT) 7 U/L (8-55); AST (SGOT) 13 U/L (5-34); Albumin 3.4 g/dL (3.5-5.0); Alkaline Phosphatase 126 U/L (40-110); Anion Gap 7 mmol/L (10-20); BUN (Urea Nitrogen) 9 mg/dL (7.0-18.7); Bilirubin, Total 0.4 mg/dL (0.2-1.2); Calc. Creatinine Clearance 0 mL/min (70-130); Carbon Dioxide 32 mmol/L (22-29); Chloride 107 mmol/L (98-107); Globulin 3.6 g/dL (2.4-3.5); Glucose 90 mg/dL (70-105); Potassium 3.6 mmol/L (3.5-5.1); Sodium 142 mmol/L (136-145)
[2020-12-19] MEDS ORDERED: Iopamidol-370 76% 500 ML 1 ML ONE (13:35)
== END 2020-12-19 13:50 | disposition home or self-care (01) ==
LOC: ERS 10:54
DX: M79.605 Pain in left leg (principal); M79.89 Other specified soft tissue disorders; I10 Essential (primary) hypertension; I25.10 Atherosclerotic heart disease of native coronary artery without angina pectoris; B20 Human immunodeficiency virus [HIV] disease; M79.7 Fibromyalgia; G47.30 Sleep apnea, unspecified; E55.9 Vitamin D deficiency, unspecified; G62.9 Polyneuropathy, unspecified; Z79.82 Long term (current) use of aspirin; Z79.899 Other long term (current) drug therapy
CPT/HCPCS: 71275; 80053; 83880; 84484; 85025; 85379; 93005; 96374; J2270; Q9967

== ENCOUNTER 2020-12-20 13:28 | Emergency (ER) | payer MEDICARE, MEDICAID ==
[2020-12-20 14:17] LABS: #Eosinphils 0.1 thou/uL (0.0-0.7); #Lymphocytes 1.4 thou/uL (1.20-3.40); #Monocytes 0.4 thou/uL (0.11-0.59); #Neutrophils 2.8 thou/uL (1.40-6.50); %Basophils 0.3 % (0.0-1.0); %Eosinophils 2.1 % (0.0-10.0); %Lymphocytes 30.9 % (21.0-51.0); %Monocytes 7.5 % (0.0-10.0); %Neutrophils 59.2 % (42.0-75.0); Hemoglobin 12.8 g/dL (12.0-16.0); Mean Corpuscular HGB CONC 34.5 g/dL (32.0-36.0); Mean Corpuscular Hemoglobin 30.4 pg (27.0-31.0); Mean Corpuscular Volume 88.3 fL (78.0-98.0); Mean Platelet Volume 7.2 fL (7.4-10.4); Platelet Count 219 thou/uL (130-400); RBC Distribution Width 11.6 % (11.5-14.5); Red Blood Cell (RBC) Count 4.19 mill/uL (4.20-5.40); White Blood Cell (WBC) Count 4.6 thou/uL (4.8-10.8)
[2020-12-20 14:46] LABS: ALT (SGPT) 7 U/L (8-55); AST (SGOT) 14 U/L (5-34); Albumin 3.8 g/dL (3.5-5.0); Alkaline Phosphatase 142 U/L (40-110); Anion Gap 10 mmol/L (10-20); BUN (Urea Nitrogen) 9 mg/dL (7.0-18.7); Bilirubin, Total 0.4 mg/dL (0.2-1.2); Calc. Creatinine Clearance 0 mL/min (70-130); Calcium 8.9 mg/dL (7.8-10.44); Carbon Dioxide 28 mmol/L (22-29); Chloride 103 mmol/L (98-107); Globulin 3.9 g/dL (2.4-3.5); Glucose 94 mg/dL (70-105); Potassium 3.7 mmol/L (3.5-5.1); Protein, Total 7.7 g/dL (6.0-8.3); Sodium 137 mmol/L (136-145)
== END 2020-12-20 16:09 | disposition home or self-care (01) ==
LOC: ERS 13:28
DX: R07.89 Other chest pain (principal); R00.2 Palpitations; I10 Essential (primary) hypertension; G43.909 Migraine, unspecified, not intractable, without status migrainosus; Z79.899 Other long term (current) drug therapy
CPT/HCPCS: 36415; 71046; 80053; 84484; 85025; 93005

== ENCOUNTER 2020-12-29 12:21 | Outpatient (CLI) | payer MEDICARE, MEDICAID | END 2020-12-29 12:22 | disposition home or self-care (01) | LOC: ULT 12:21 | PROVIDERS: ATTEND Student in an Organized Health Care Education/Training Program | DX: R22.42 Localized swelling, mass and lump, left lower limb (principal) ==

== ENCOUNTER 2021-01-26 17:41 | Emergency (ER) | payer MEDICARE, OTHER ==
[2021-01-26 18:51] LABS: #Eosinphils 0.1 thou/uL (0.0-0.7); #Lymphocytes 1.6 thou/uL (1.20-3.40); #Monocytes 0.5 thou/uL (0.11-0.59); #Neutrophils 2.9 thou/uL (1.40-6.50); %Basophils 0.6 % (0.0-1.0); %Eosinophils 2.2 % (0.0-10.0); %Monocytes 9.1 % (0.0-10.0); %Neutrophils 56.1 % (42.0-75.0); Hemoglobin 12.4 g/dL (12.0-16.0); Mean Corpuscular HGB CONC 33.9 g/dL (32.0-36.0); Mean Corpuscular Hemoglobin 29.9 pg (27.0-31.0); Mean Corpuscular Volume 88.1 fL (78.0-98.0); Mean Platelet Volume 6.6 fL (7.4-10.4); Platelet Count 260 thou/uL (130-400); RBC Distribution Width 11.5 % (11.5-14.5); Red Blood Cell (RBC) Count 4.16 mill/uL (4.20-5.40); White Blood Cell (WBC) Count 5.1 thou/uL (4.8-10.8)
[2021-01-26 19:13] LABS: ALT (SGPT) 9 U/L (8-55); AST (SGOT) 15 U/L (5-34); Albumin 3.9 g/dL (3.5-5.0); Alkaline Phosphatase 143 U/L (40-110); Anion Gap 11 mmol/L (10-20); BUN (Urea Nitrogen) 11 mg/dL (7.0-18.7); Bilirubin, Total 0.3 mg/dL (0.2-1.2); Calc. Creatinine Clearance 0 mL/min (70-130); Calcium 9.4 mg/dL (7.8-10.44); Carbon Dioxide 27 mmol/L (22-29); Chloride 106 mmol/L (98-107); Glucose 99 mg/dL (70-105); Protein, Total 7.9 g/dL (6.0-8.3); Sodium 140 mmol/L (136-145)
== END 2021-01-26 20:53 | disposition home or self-care (01) ==
LOC: ERS 17:41
DX: R19.7 Diarrhea, unspecified (principal); I10 Essential (primary) hypertension; I25.10 Atherosclerotic heart disease of native coronary artery without angina pectoris; G43.909 Migraine, unspecified, not intractable, without status migrainosus; Z21 Asymptomatic human immunodeficiency virus [HIV] infection status; G47.30 Sleep apnea, unspecified; G62.9 Polyneuropathy, unspecified; Z79.899 Other long term (current) drug therapy
CPT/HCPCS: 36415; 80053; 85025; 99284

== ENCOUNTER 2021-02-07 06:54 | Emergency (ER) | payer MEDICARE, OTHER ==
[2021-02-07] MEDS ORDERED: Acetaminophen 500 MG TAB ONE (07:21)
[2021-02-07 08:10] LABS: #Lymphocytes 1.1 thou/uL (1.20-3.40); #Monocytes 0.5 thou/uL (0.11-0.59); #Neutrophils 9.8 thou/uL (1.40-6.50); %Basophils 0.4 % (0.0-1.0); %Eosinophils 0.3 % (0.0-10.0); %Lymphocytes 9.9 % (21.0-51.0); %Neutrophils 85.4 % (42.0-75.0); Hemoglobin 12.6 g/dL (12.0-16.0); Mean Corpuscular HGB CONC 34.3 g/dL (32.0-36.0); Mean Corpuscular Volume 87.4 fL (78.0-98.0); Mean Platelet Volume 6.9 fL (7.4-10.4); Platelet Count 205 thou/uL (130-400); RBC Distribution Width 11.3 % (11.5-14.5); Red Blood Cell (RBC) Count 4.19 mill/uL (4.20-5.40); White Blood Cell (WBC) Count 11.5 thou/uL (4.8-10.8)
[2021-02-07 08:20] LABS: ALT (SGPT) 8 U/L (8-55); AST (SGOT) 15 U/L (5-34); Albumin 3.6 g/dL (3.5-5.0); Alkaline Phosphatase 140 U/L (40-110); Anion Gap 12 mmol/L (10-20); BUN (Urea Nitrogen) 9 mg/dL (7.0-18.7); Bilirubin, Total 0.8 mg/dL (0.2-1.2); Calc. Creatinine Clearance 0 mL/min (70-130); Carbon Dioxide 26 mmol/L (22-29); Chloride 103 mmol/L (98-107); Globulin 4.3 g/dL (2.4-3.5); Glucose 102 mg/dL (70-105); Potassium 3.5 mmol/L (3.5-5.1); Protein, Total 7.9 g/dL (6.0-8.3); Sodium 137 mmol/L (136-145)
[2021-02-07 08:24] LABS: Troponin I Less than 0.010 ng/mL (< 0.028)
[2021-02-07 08:25] LABS: Bacteria/HPF Rare-Few HPF (None Seen); Bilirubin Negative (Negative); Blood, Urine Negative (Negative); Clarity Clear (Clear); Glucose, Urine (Dipstick) Normal (Negative); Ketone, Urine Negative (Negative); Leukocyte 75 Leu/uL (Negative); Nitrite Negative (Negative); Protein, Urine (Dipstick) Negative (Neg-Trace); RBC/HPF 0-3 HPF (0-3); Specific Gravity, Urine 1.019 (1.002-1.036); Squamous Epithelial 0-3 HPF (0-3); WBC/HPF 0-3 HPF (0-3)
[2021-02-07] MEDS ORDERED: cefTRIAXone\\ROCEPHIN 1 GM VIAL ONE (08:58)
[2021-02-07] MEDS ORDERED: Azithromycin 500 MG VIAL ONE (08:58)
[2021-02-07 09:33] LABS: SARS-CoV-2 NAA Rapid Test Not Detected (NotDetected)
== END 2021-02-07 10:15 | disposition home or self-care (01) ==
LOC: ERS 06:54
DX: J18.9 Pneumonia, unspecified organism (principal); Z20.822 Contact with and (suspected) exposure to COVID-19; I10 Essential (primary) hypertension; I25.10 Atherosclerotic heart disease of native coronary artery without angina pectoris; G43.909 Migraine, unspecified, not intractable, without status migrainosus; G47.30 Sleep apnea, unspecified; B20 Human immunodeficiency virus [HIV] disease; Z79.82 Long term (current) use of aspirin; Z79.51 Long term (current) use of inhaled steroids; Z79.899 Other long term (current) drug therapy
CPT/HCPCS: 0240U; 71045; 80053; 83605; 83880; 84484; 85025; 87040; 93005; 36415; 81003; 81015; 96365; J0456; J0696

== ENCOUNTER 2021-02-11 21:39 | Emergency (ER) | payer MEDICARE, OTHER ==
[2021-02-11 22:19] LABS: #Eosinphils 0.2 thou/uL (0.0-0.7); #Lymphocytes 2.3 thou/uL (1.20-3.40); #Monocytes 0.5 thou/uL (0.11-0.59); #Neutrophils 4.7 thou/uL (1.40-6.50); %Basophils 0.3 % (0.0-1.0); %Eosinophils 2.1 % (0.0-10.0); %Lymphocytes 30.1 % (21.0-51.0); %Monocytes 6.8 % (0.0-10.0); %Neutrophils 60.7 % (42.0-75.0); Hemoglobin 11.4 g/dL (12.0-16.0); Mean Corpuscular HGB CONC 33.7 g/dL (32.0-36.0); Mean Corpuscular Hemoglobin 29.6 pg (27.0-31.0); Mean Corpuscular Volume 87.9 fL (78.0-98.0); Mean Platelet Volume 6.4 fL (7.4-10.4); Platelet Count 235 thou/uL (130-400); RBC Distribution Width 11.6 % (11.5-14.5); Red Blood Cell (RBC) Count 3.86 mill/uL (4.20-5.40); White Blood Cell (WBC) Count 7.8 thou/uL (4.8-10.8)
[2021-02-11 22:49] LABS: ALT (SGPT) 7 U/L (8-55); AST (SGOT) 13 U/L (5-34); Albumin 3.6 g/dL (3.5-5.0); Alkaline Phosphatase 127 U/L (40-110); Anion Gap 9 mmol/L (10-20); BUN (Urea Nitrogen) 12 mg/dL (7.0-18.7); Bilirubin, Total 0.3 mg/dL (0.2-1.2); Calc. Creatinine Clearance 0 mL/min (70-130); Calcium 9.2 mg/dL (7.8-10.44); Carbon Dioxide 29 mmol/L (22-29); Chloride 105 mmol/L (98-107); Globulin 3.7 g/dL (2.4-3.5); Glucose 94 mg/dL (70-105); Potassium 4.1 mmol/L (3.5-5.1); Protein, Total 7.3 g/dL (6.0-8.3); Sodium 139 mmol/L (136-145)
== END 2021-02-11 23:30 | disposition home or self-care (01) ==
LOC: ERS 21:39
DX: R09.1 Pleurisy (principal); I10 Essential (primary) hypertension; G43.909 Migraine, unspecified, not intractable, without status migrainosus; I25.10 Atherosclerotic heart disease of native coronary artery without angina pectoris; G47.30 Sleep apnea, unspecified; G62.9 Polyneuropathy, unspecified; Z21 Asymptomatic human immunodeficiency virus [HIV] infection status; Z79.899 Other long term (current) drug therapy
CPT/HCPCS: 36415; 71045; 80053; 84484; 85025; 93005

== ENCOUNTER 2021-02-23 01:34 | Emergency (ER) | payer MEDICARE ==
[2021-02-23 02:45] LABS: #Eosinphils 0.1 thou/uL (0.0-0.7); #Monocytes 0.5 thou/uL (0.11-0.59); #Neutrophils 4.8 thou/uL (1.40-6.50); %Basophils 0.3 % (0.0-1.0); %Eosinophils 1.9 % (0.0-10.0); %Lymphocytes 26.3 % (21.0-51.0); %Monocytes 6.4 % (0.0-10.0); %Neutrophils 65.1 % (42.0-75.0); Hemoglobin 11.4 g/dL (12.0-16.0); Mean Corpuscular HGB CONC 34.2 g/dL (32.0-36.0); Mean Corpuscular Hemoglobin 29.9 pg (27.0-31.0); Mean Corpuscular Volume 87.2 fL (78.0-98.0); Mean Platelet Volume 6.4 fL (7.4-10.4); Platelet Count 244 thou/uL (130-400); RBC Distribution Width 11.8 % (11.5-14.5); Red Blood Cell (RBC) Count 3.81 mill/uL (4.20-5.40); White Blood Cell (WBC) Count 7.4 thou/uL (4.8-10.8)
[2021-02-23] MEDS ORDERED: Acetaminophen 500 MG TAB ONE (02:45)
[2021-02-23 03:04] LABS: ALT (SGPT) 7 U/L (8-55); AST (SGOT) 12 U/L (5-34); Albumin 3.4 g/dL (3.5-5.0); Alkaline Phosphatase 118 U/L (40-110); Anion Gap 10 mmol/L (10-20); BUN (Urea Nitrogen) 11 mg/dL (7.0-18.7); Bilirubin, Total 0.5 mg/dL (0.2-1.2); Calc. Creatinine Clearance 0 mL/min (70-130); Carbon Dioxide 27 mmol/L (22-29); Chloride 106 mmol/L (98-107); Globulin 3.8 g/dL (2.4-3.5); Glucose 97 mg/dL (70-105); Potassium 3.7 mmol/L (3.5-5.1); Protein, Total 7.2 g/dL (6.0-8.3); Sodium 139 mmol/L (136-145)
[2021-02-23] MEDS ORDERED: Iopamidol-370 76% 500 ML 1 ML ONE (09:42)
== END 2021-02-23 05:30 | disposition home or self-care (01) ==
LOC: ERS 01:34
DX: R07.9 Chest pain, unspecified (principal); Z79.51 Long term (current) use of inhaled steroids; Z79.52 Long term (current) use of systemic steroids; Z79.899 Other long term (current) drug therapy
CPT/HCPCS: 36415; 71275; 80053; 83880; 84484; 85025; 93005; J7620; Q9967

== ENCOUNTER 2021-02-27 15:27 | Inpatient (IN) | payer MEDICARE, MEDICAID ==
[2021-02-27 15:51] LABS: #Eosinphils 0.1 thou/uL (0.0-0.7); #Lymphocytes 1.8 thou/uL (1.20-3.40); #Monocytes 0.6 thou/uL (0.11-0.59); #Neutrophils 5.6 thou/uL (1.40-6.50); %Basophils 0.4 % (0.0-1.0); %Eosinophils 0.7 % (0.0-10.0); %Monocytes 7.7 % (0.0-10.0); %Neutrophils 69.3 % (42.0-75.0); Hemoglobin 12.4 g/dL (12.0-16.0); Mean Corpuscular HGB CONC 33.9 g/dL (32.0-36.0); Mean Corpuscular Hemoglobin 29.8 pg (27.0-31.0); Mean Corpuscular Volume 87.9 fL (78.0-98.0); Mean Platelet Volume 6.1 fL (7.4-10.4); Platelet Count 267 thou/uL (130-400); RBC Distribution Width 11.8 % (11.5-14.5); Red Blood Cell (RBC) Count 4.18 mill/uL (4.20-5.40); White Blood Cell (WBC) Count 8.1 thou/uL (4.8-10.8)
[2021-02-27 16:13] LABS: ALT (SGPT) 8 U/L (8-55); AST (SGOT) 12 U/L (5-34); Albumin 3.6 g/dL (3.5-5.0); Alkaline Phosphatase 138 U/L (40-110); Anion Gap 12 mmol/L (10-20); BUN (Urea Nitrogen) 11 mg/dL (7.0-18.7); Bilirubin, Total 0.4 mg/dL (0.2-1.2); Calc. Creatinine Clearance 0 mL/min (70-130); Carbon Dioxide 27 mmol/L (22-29); Chloride 104 mmol/L (98-107); Globulin 4.2 g/dL (2.4-3.5); Glucose 89 mg/dL (70-105); Lipase 24 U/L (8-78); Potassium 3.5 mmol/L (3.5-5.1); Protein, Total 7.8 g/dL (6.0-8.3); Sodium 139 mmol/L (136-145)
[2021-02-27] MEDS ORDERED: Ketorolac Tromethamine 30 MG/ML VIAL ONE (19:02)
[2021-02-27 20:22] LABS: Troponin I Less than 0.010 ng/mL (< 0.028)
[2021-02-27] MEDS ORDERED: Acetaminophen 325 MG TAB PO PRN (20:43)
[2021-02-27 20:56] LABS: SARS-CoV-2 NAA Rapid Test Not Detected (NotDetected)
[2021-02-27 22:01] VITALS: BMI 36.9
[2021-02-27] MEDS ORDERED: hydrALAZINE 20 MG/ML VIAL SLOW IVP SCH (22:15)
[2021-02-27] MEDS ORDERED: Albuterol Sulfate 2.5 mg/3 ml Neb NEB PRN (22:56)
[2021-02-27] MEDS ORDERED: Nitroglycerin 0.4 MG TAB (25 Tab Bottle) SL PRN (22:57)
[2021-02-27 23:04] LABS: Cardiac Risk 4.8 (Less than 4.5); Cholesterol 256 mg/dl (< 200 Desired); HDL Cholesterol 53 mg/dL (>60 Neg Risk); Hemoglobin A1c 5.4 % (4.0-6.0); LDL Cholesterol, Calculated 187 mg/dL; Magnesium 1.7 mg/dL (1.6-2.6); Phosphorus 2.4 mg/dL (2.3-4.7); Triglycerides 80 mg/dL (Less than 150)
[2021-02-27 23:08] LABS: Troponin I Less than 0.010 ng/mL (< 0.028)
[2021-02-28] MEDS: Benzonatate 100 MG CAP PO SCH ×3 (08:46→20:43)
[2021-02-28] MEDS: Losartan 25 MG TAB PO SCH (08:46)
[2021-02-28] MEDS: Aspirin Chewable 81 MG TAB PO SCH (08:46)
[2021-02-28] MEDS ORDERED: Lorazepam 1 MG TAB PO SCH (09:51)
[2021-02-28] MEDS: Enoxaparin Sodium 40 MG/0.4 ML SYRINGE SC SCH (12:52)
[2021-02-28] MEDS: Ferrous Sulfate 325 MG TAB PO SCH (12:52)
[2021-02-28] MEDS: Multivit, Chewable SF 1 TAB PO SCH (17:32)
[2021-02-28] MEDS: Guaifenesin DM 100-10/5 ML UDCUP PO PRN (20:45)
[2021-02-28] MEDS ORDERED: Bictegrav/Emtricit/Tenofov Ala [Biktarvy 50-200-25 Mg Tablet] PO SCH (21:00)
[2021-03-01] MEDS: Guaifenesin DM 100-10/5 ML UDCUP PO PRN ×2 (04:07→11:08)
[2021-03-01 08:45] VITALS: TEMP 97.9
[2021-03-01] MEDS: Aspirin Chewable 81 MG TAB PO SCH (11:04)
[2021-03-01] MEDS: Enoxaparin Sodium 40 MG/0.4 ML SYRINGE SC SCH (11:04)
[2021-03-01] MEDS: Multivit, Chewable SF 1 TAB PO SCH (11:05)
[2021-03-01] MEDS: Ferrous Sulfate 325 MG TAB PO SCH (11:05)
[2021-03-01] MEDS: Losartan 25 MG TAB PO SCH (11:05)
[2021-03-01] MEDS: Benzonatate 100 MG CAP PO SCH (11:06)
[2021-03-01 12:15] VITALS: BP 158/72
[2021-03-01 15:14] LABS: Absolute CD4 1175 /uL (359-1519); Lymphocytes/Gated Cell Count 2.5 x10E3/uL (0.7-3.1); Total Lymphocyte 29 % (Not Estab.); WBC Total Count 8.4 x10E3/uL (3.4-10.8)
[2021-03-02] MEDS ORDERED: Prevnar 13-Val Conj/PF 0.5 ML SYRINGE IM ONE (09:00)
[2021-03-02] MEDS ORDERED: FLU VACC QS2021-22(6MOS UP)/PF 60 MCG/0.5 ML SYRINGE IM ONE (09:00)
[2021-03-03 14:39] LABS: Hemoglobin A2 2.7 % (1.8-3.2); Hemoglobin F 0 % (0.0-2.0)
== END 2021-03-01 16:20 | disposition home or self-care (01) | DRG 206 ==
LOC: ERS 15:27 → 2NO 19:31 → OBSVTOIN 03-01 16:03
PROVIDERS: ADMIT Family Medicine; ATTEND Family Medicine
DX: M94.0 Chondrocostal junction syndrome [Tietze] (principal); B20 Human immunodeficiency virus [HIV] disease; J20.9 Acute bronchitis, unspecified; Z20.822 Contact with and (suspected) exposure to COVID-19; I35.0 Nonrheumatic aortic (valve) stenosis; E78.5 Hyperlipidemia, unspecified; G47.33 Obstructive sleep apnea (adult) (pediatric); M19.90 Unspecified osteoarthritis, unspecified site; F41.9 Anxiety disorder, unspecified; F43.10 Post-traumatic stress disorder, unspecified; I16.0 Hypertensive urgency; E66.9 Obesity, unspecified; F31.9 Bipolar disorder, unspecified; I11.0 Hypertensive heart disease with heart failure; I50.9 Heart failure, unspecified; K21.9 Gastro-esophageal reflux disease without esophagitis; B34.9 Viral infection, unspecified; Z88.8 Allergy status to other drugs, medicaments and biological substances; Z79.899 Other long term (current) drug therapy; Z79.51 Long term (current) use of inhaled steroids; Z68.36 Body mass index [BMI] 36.0-36.9, adult; Z90.710 Acquired absence of both cervix and uterus; Z98.84 Bariatric surgery status
CPT/HCPCS: 36415; 71045; 76705; 78452; 80053; 80061; 83021; 83036; 83690; 83735; 83880; 84100; 84443; 84484; 85025; 85048; 86361; 93005; 93017; 93306; 96372; A9500; G0378; J1650; J1885; J7620; U0002

== ENCOUNTER 2021-03-06 16:30 | Outpatient (CLI) | payer MEDICARE | END 2021-03-06 16:31 | disposition home or self-care (01) | LOC: SLEEPLAB 16:30 | PROVIDERS: ATTEND Internal Medicine Pulmonary Disease | DX: G47.33 Obstructive sleep apnea (adult) (pediatric) (principal); R09.89 Other specified symptoms and signs involving the circulatory and respiratory systems; F31.9 Bipolar disorder, unspecified; R06.83 Snoring; G47.00 Insomnia, unspecified; G47.10 Hypersomnia, unspecified; E66.9 Obesity, unspecified; Z68.41 Body mass index [BMI] 40.0-44.9, adult | CPT/HCPCS: 95806 ==

== ENCOUNTER 2021-04-12 11:51 | Observation (INO) | payer OTHER, MEDICAID ==
[~2021-04-12 11:51] MED LIST changes: +Iopamidol 370 76% 100 ML VIAL ONE; -Iopamidol-370 76% 500 ML 1 ML ONE
[2021-04-12 12:44] LABS: #Eosinphils 0.1 thou/uL (0.0-0.7); #Lymphocytes 1.6 thou/uL (1.20-3.40); #Monocytes 0.4 thou/uL (0.11-0.59); %Basophils 0.7 % (0.0-1.0); %Eosinophils 1.4 % (0.0-10.0); %Lymphocytes 26.4 % (21.0-51.0); %Monocytes 5.8 % (0.0-10.0); %Neutrophils 65.7 % (42.0-75.0); Hemoglobin 12.1 g/dL (12.0-16.0); Mean Corpuscular Hemoglobin 28.9 pg (27.0-31.0); Mean Corpuscular Volume 87.8 fL (78.0-98.0); Mean Platelet Volume 6.6 fL (7.4-10.4); Platelet Count 243 thou/uL (130-400); RBC Distribution Width 11.8 % (11.5-14.5); Red Blood Cell (RBC) Count 4.18 mill/uL (4.20-5.40); White Blood Cell (WBC) Count 6.1 thou/uL (4.8-10.8)
[2021-04-12 13:17] LABS: ALT (SGPT) 11 U/L (8-55); AST (SGOT) 24 U/L (5-34); Albumin 3.9 g/dL (3.5-5.0); Alkaline Phosphatase 136 U/L (40-110); Anion Gap 12 mmol/L (10-20); BUN (Urea Nitrogen) 9 mg/dL (7.0-18.7); Bilirubin, Total 0.6 mg/dL (0.2-1.2); Calc. Creatinine Clearance 0 mL/min (70-130); Calcium 9.3 mg/dL (7.8-10.44); Carbon Dioxide 25 mmol/L (22-29); Chloride 105 mmol/L (98-107); Globulin 4.3 g/dL (2.4-3.5); Glucose 98 mg/dL (70-105); Lipase 19 U/L (8-78); Potassium 3.9 mmol/L (3.5-5.1); Protein, Total 8.2 g/dL (6.0-8.3); Sodium 138 mmol/L (136-145)
[2021-04-12] MEDS ORDERED: Nitroglycerin 2% Ointment 1 INCH/1 GM Packet ONE (15:14)
[2021-04-12] MEDS ORDERED: Acetaminophen 325 MG TAB PO PRN (15:52)
[2021-04-12] MEDS ORDERED: Ondansetron ODT 4 MG TAB PO PRN (15:52)
[2021-04-12] MEDS ORDERED: Aspirin Chewable 81 MG TAB ONE (16:33)
[2021-04-12 17:27] VITALS: BMI 37.8
[2021-04-12 22:12] LABS: SARS-CoV-2 PCR by NAA Not Detected (NotDetected)
[2021-04-12 22:13] VITALS: BP 152/75; TEMP 97.9
== END 2021-04-12 22:10 | disposition home or self-care (01) ==
LOC: ERS 11:51 → 2SW 15:19
PROVIDERS: ADMIT Family Medicine; ATTEND Family Medicine
DX: R07.89 Other chest pain (principal); I10 Essential (primary) hypertension; E66.01 Morbid (severe) obesity due to excess calories; Z68.37 Body mass index [BMI] 37.0-37.9, adult; Z79.899 Other long term (current) drug therapy; Z20.822 Contact with and (suspected) exposure to COVID-19; Z88.8 Allergy status to other drugs, medicaments and biological substances; Z86.16 Personal history of COVID-19; Z21 Asymptomatic human immunodeficiency virus [HIV] infection status
CPT/HCPCS: 71045; 71275; 74174; 80053; 83690; 84484 ×2; 85025; 93005; 94760; 99285; G0378 ×2; U0003; U0005; 36415; 36416; 93010; Q9967

== ENCOUNTER 2021-08-20 00:50 | Emergency (ER) | payer MEDICARE, OTHER ==
[2021-08-20 01:27] LABS: #Eosinphils 0.2 thou/uL (0.0-0.7); #Lymphocytes 2.4 thou/uL (1.20-3.40); #Monocytes 0.6 thou/uL (0.11-0.59); #Neutrophils 6.8 thou/uL (1.40-6.50); %Basophils 0.1 % (0.0-1.0); %Eosinophils 1.5 % (0.0-10.0); %Lymphocytes 24.4 % (21.0-51.0); %Monocytes 5.7 % (0.0-10.0); %Neutrophils 68.4 % (42.0-75.0); Hemoglobin 11.6 g/dL (12.0-16.0); Mean Corpuscular HGB CONC 31.9 g/dL (32.0-36.0); Mean Corpuscular Hemoglobin 28.2 pg (27.0-31.0); Mean Corpuscular Volume 88.4 fL (78.0-98.0); Mean Platelet Volume 7.1 fL (7.4-10.4); Platelet Count 234 thou/uL (130-400); RBC Distribution Width 11.7 % (11.5-14.5); Red Blood Cell (RBC) Count 4.11 mill/uL (4.20-5.40)
[2021-08-20 01:42] LABS: ALT (SGPT) 8 U/L (8-55); AST (SGOT) 14 U/L (5-34); Albumin 3.9 g/dL (3.5-5.0); Alkaline Phosphatase 149 U/L (40-110); Anion Gap 14 mmol/L (10-20); BUN (Urea Nitrogen) 14 mg/dL (7.0-18.7); Bilirubin, Total 0.4 mg/dL (0.2-1.2); Calc. Creatinine Clearance 0 mL/min (70-130); Calcium 9.6 mg/dL (7.8-10.44); Carbon Dioxide 25 mmol/L (22-29); Chloride 105 mmol/L (98-107); Estimated GFR 81; Globulin 3.9 g/dL (2.4-3.5); Glucose 88 mg/dL (70-105); Protein, Total 7.8 g/dL (6.0-8.3); Sodium 141 mmol/L (136-145)
[2021-08-20] MEDS ORDERED: Potassium Chloride 20 MEQ TAB ONE (03:45)
[2021-08-20 04:01] LABS: Bilirubin Negative (Negative); Blood, Urine Negative (Negative); Clarity Clear (Clear); Glucose, Urine (Dipstick) Normal (Negative); Ketone, Urine Negative (Negative); Leukocyte 75 Leu/uL (Negative); Nitrite Negative (Negative); Protein, Urine (Dipstick) 10 mg/dL (Neg-Trace); Specific Gravity, Urine 1.033 (1.002-1.036); Urobilinogen Normal mg/dL (Less than 2); pH, Urine 5.5 (5.0-9.0)
[2021-08-20 06:00] LABS: Bacteria/HPF 1+ HPF (None Seen)
== END 2021-08-20 04:30 | disposition home or self-care (01) ==
LOC: ERS 00:50
DX: R55 Syncope and collapse (principal); G43.909 Migraine, unspecified, not intractable, without status migrainosus; I10 Essential (primary) hypertension; B20 Human immunodeficiency virus [HIV] disease; Z79.899 Other long term (current) drug therapy
CPT/HCPCS: 36415; 80053; 81003; 81015; 85025; 93005

== ENCOUNTER 2021-12-27 07:39 | Outpatient (CLI) | payer OTHER, MEDICAID | END 2021-12-27 07:40 | disposition home or self-care (01) | LOC: CT 07:39 | PROVIDERS: ATTEND Physician Assistant Medical | DX: R10.13 Epigastric pain (principal); R11.2 Nausea with vomiting, unspecified; Z87.19 Personal history of other diseases of the digestive system; I70.0 Atherosclerosis of aorta; J98.4 Other disorders of lung; K44.9 Diaphragmatic hernia without obstruction or gangrene; M47.817 Spondylosis without myelopathy or radiculopathy, lumbosacral region; M51.37 Other intervertebral disc degeneration, lumbosacral region; M25.78 Osteophyte, vertebrae | CPT/HCPCS: 74160 ==

== ENCOUNTER 2022-05-03 14:27 | Emergency (ER) | payer MEDICAID, OTHER ==
[2022-05-03 15:57] LABS: #Eosinphils 0.1 thou/uL (0.0-0.7); #Lymphocytes 1.8 thou/uL (1.20-3.40); #Monocytes 0.4 thou/uL (0.11-0.59); #Neutrophils 3.3 thou/uL (1.40-6.50); %Basophils 0.7 % (0.0-1.0); %Eosinophils 1.2 % (0.0-10.0); %Lymphocytes 31.6 % (21.0-51.0); %Monocytes 7.9 % (0.0-10.0); %Neutrophils 58.6 % (42.0-75.0); Hemoglobin 10.5 g/dL (12.0-16.0); Mean Corpuscular HGB CONC 33.2 g/dL (32.0-36.0); Mean Corpuscular Hemoglobin 27.5 pg (27.0-31.0); Mean Corpuscular Volume 82.8 fl (78.0-98.0); Mean Platelet Volume 7.3 fL (7.4-10.4); Platelet Count 180 10x3/uL (130-400); RBC Distribution Width 12.7 % (11.5-14.5); Red Blood Cell (RBC) Count 3.82 mill/uL (4.20-5.40); White Blood Cell (WBC) Count 5.6 10x3/uL (4.8-10.8)
[2022-05-03 16:18] LABS: Bacteria/HPF None Seen HPF (None Seen); Bilirubin Negative (Negative); Blood, Urine Negative (Negative); Clarity Clear (Clear); Glucose, Urine (Dipstick) Normal (Negative); Ketone, Urine Negative (Negative); Leukocyte 75 Leu/uL (Negative); Nitrite Negative (Negative); Protein, Urine (Dipstick) Negative (Neg-Trace); RBC/HPF 0-3 HPF (0-3); Specific Gravity, Urine 1.022 (1.002-1.036); WBC/HPF 0-3 HPF (0-3)
[2022-05-03 16:18] LABS: ALT (SGPT) 8 U/L (8-55); AST (SGOT) 16 U/L (5-34); Albumin 3.1 g/dL (3.5-5.0); Alkaline Phosphatase 105 U/L (40-110); Anion Gap 10 mmol/L (10-20); BUN (Urea Nitrogen) 11 mg/dL (7.0-18.7); Bilirubin, Total 0.3 mg/dL (0.2-1.2); Calc. Creatinine Clearance 0 mL/min (70-130); Calcium 8.6 mg/dL (7.8-10.44); Carbon Dioxide 25 mmol/L (22-29); Chloride 105 mmol/L (98-107); Estimated GFR 102; Globulin 5.4 g/dL (2.4-3.5); Glucose 80 mg/dL (70-105); Potassium 3.9 mmol/L (3.5-5.1); Protein, Total 8.5 g/dL (6.0-8.3); Sodium 136 mmol/L (136-145)
[2022-05-03] MEDS ORDERED: Losartan 25 MG TAB PO SCH (17:00)
== END 2022-05-03 16:47 | disposition home or self-care (01) ==
LOC: ERS 14:27
DX: I10 Essential (primary) hypertension (principal); B20 Human immunodeficiency virus [HIV] disease; I25.10 Atherosclerotic heart disease of native coronary artery without angina pectoris
CPT/HCPCS: 36415; 80053; 81003; 81015; 85025; 87086; 93005

== ENCOUNTER 2022-05-05 22:51 | Emergency (ER) | payer OTHER ==
[2022-05-05] MEDS ORDERED: Mag-Al 1200 mg/1200 mg/30 ML UDCUP ONE (23:49)
[2022-05-05] MEDS ORDERED: Lidocaine Viscous Sol 2% 15 ml UD Cup ONE (23:49)
[2022-05-05 23:53] LABS: #Eosinphils 0.1 thou/uL (0.0-0.7); #Lymphocytes 2.5 thou/uL (1.20-3.40); #Monocytes 0.4 thou/uL (0.11-0.59); #Neutrophils 3.9 thou/uL (1.40-6.50); %Basophils 0.1 % (0.0-1.0); %Lymphocytes 35.2 % (21.0-51.0); %Monocytes 6.4 % (0.0-10.0); %Neutrophils 56.4 % (42.0-75.0); Hemoglobin 11.1 g/dL (12.0-16.0); Mean Corpuscular HGB CONC 31.9 g/dL (32.0-36.0); Mean Corpuscular Hemoglobin 26.6 pg (27.0-31.0); Mean Corpuscular Volume 83.6 fl (78.0-98.0); Mean Platelet Volume 7.3 fL (7.4-10.4); Platelet Count 222 10x3/uL (130-400); RBC Distribution Width 12.6 % (11.5-14.5); Red Blood Cell (RBC) Count 4.17 mill/uL (4.20-5.40)
[2022-05-05 23:59] LABS: ALT (SGPT) 8 U/L (8-55); AST (SGOT) 17 U/L (5-34); Albumin 3.3 g/dL (3.5-5.0); Alkaline Phosphatase 118 U/L (40-110); Anion Gap 10 mmol/L (10-20); BUN (Urea Nitrogen) 14 mg/dL (7.0-18.7); Bilirubin, Total 0.3 mg/dL (0.2-1.2); CK (CPK) 66 U/L (29-168); Calc. Creatinine Clearance 0 mL/min (70-130); Calcium 8.9 mg/dL (7.8-10.44); Carbon Dioxide 24 mmol/L (22-29); Chloride 103 mmol/L (98-107); Estimated GFR 94; Globulin 5.9 g/dL (2.4-3.5); Glucose 86 mg/dL (70-105); Lipase 27 U/L (8-78); Potassium 3.4 mmol/L (3.5-5.1); Protein, Total 9.2 g/dL (6.0-8.3); Sodium 134 mmol/L (136-145)
== END 2022-05-06 01:48 | disposition home or self-care (01) ==
LOC: ERS 22:51
DX: R07.2 Precordial pain (principal); K21.9 Gastro-esophageal reflux disease without esophagitis; I25.10 Atherosclerotic heart disease of native coronary artery without angina pectoris; I10 Essential (primary) hypertension; G47.30 Sleep apnea, unspecified; E55.9 Vitamin D deficiency, unspecified; G62.9 Polyneuropathy, unspecified; M79.7 Fibromyalgia; B20 Human immunodeficiency virus [HIV] disease; Z79.899 Other long term (current) drug therapy
CPT/HCPCS: 36415; 71045; 80053; 82550; 83690; 84484; 85025; 93005

== ENCOUNTER 2022-05-06 20:53 | Emergency (ER) | payer OTHER ==
[2022-05-06 21:14] LABS: #Basophils 0.1 thou/uL (0.0-0.2); #Eosinphils 0.1 thou/uL (0.0-0.7); #Monocytes 0.4 thou/uL (0.11-0.59); #Neutrophils 4.9 thou/uL (1.40-6.50); %Basophils 0.8 % (0.0-1.0); %Lymphocytes 26.6 % (21.0-51.0); %Monocytes 4.7 % (0.0-10.0); %Neutrophils 66.9 % (42.0-75.0); Hemoglobin 13.1 g/dL (12.0-16.0); Mean Corpuscular HGB CONC 33.9 g/dL (32.0-36.0); Mean Corpuscular Hemoglobin 27.7 pg (27.0-31.0); Mean Corpuscular Volume 81.9 fl (78.0-98.0); Mean Platelet Volume 7.4 fL (7.4-10.4); Platelet Count 219 10x3/uL (130-400); RBC Distribution Width 12.7 % (11.5-14.5); Red Blood Cell (RBC) Count 4.71 mill/uL (4.20-5.40); White Blood Cell (WBC) Count 7.4 10x3/uL (4.8-10.8)
[2022-05-06 21:48] LABS: Bacteria/HPF None Seen HPF (None Seen); Bilirubin Negative (Negative); Blood, Urine Trace (Negative); Clarity Clear (Clear); Glucose, Urine (Dipstick) Normal (Negative); Ketone, Urine Negative (Negative); Leukocyte Negative Leu/uL (Negative); Nitrite Negative (Negative); Protein, Urine (Dipstick) Negative (Neg-Trace); RBC/HPF 0-3 HPF (0-3); Specific Gravity, Urine 1.017 (1.002-1.036); Urobilinogen Normal mg/dL (Less than 2); WBC/HPF 0-3 HPF (0-3); pH, Urine 5.5 (5.0-9.0)
[2022-05-06] MEDS ORDERED: Lidocaine Viscous Sol 2% 15 ml UD Cup ONE (22:09)
[2022-05-06] MEDS ORDERED: Mag-Al 1200 mg/1200 mg/30 ML UDCUP ONE (22:09)
[2022-05-06] MEDS ORDERED: Ondansetron ODT 4 MG TAB ONE (22:09)
[2022-05-06 22:20] LABS: Albumin 3.5 g/dL (3.5-5.0)
[2022-05-06 22:21] LABS: Chloride 103 mmol/L (98-107); Potassium 3.9 mmol/L (3.5-5.1); Sodium 134 mmol/L (136-145)
[2022-05-06 22:23] LABS: Globulin 5.9 g/dL (2.4-3.5); Glucose 102 mg/dL (70-105); Protein, Total 9.4 g/dL (6.0-8.3)
[2022-05-06 22:24] LABS: Anion Gap 10 mmol/L (10-20); Bilirubin, Total 0.4 mg/dL (0.2-1.2); Carbon Dioxide 25 mmol/L (22-29)
[2022-05-06 22:25] LABS: Alkaline Phosphatase 111 U/L (40-110)
[2022-05-06 22:26] LABS: Calc. Creatinine Clearance 0 mL/min (70-130); Estimated GFR 93
[2022-05-06 22:27] LABS: BUN (Urea Nitrogen) 13 mg/dL (7.0-18.7)
[2022-05-06 22:28] LABS: ALT (SGPT) 10 U/L (8-55); AST (SGOT) 17 U/L (5-34)
[2022-05-06 22:29] LABS: Lipase 27 U/L (8-78)
== END 2022-05-06 23:10 | disposition home or self-care (01) ==
LOC: ERS 20:53
DX: I16.0 Hypertensive urgency (principal); M79.10 Myalgia, unspecified site; B20 Human immunodeficiency virus [HIV] disease; I25.10 Atherosclerotic heart disease of native coronary artery without angina pectoris
CPT/HCPCS: 36415; 71045; 80053; 81003; 81015; 82550; 83690; 84484; 85025; 93005; Q0162

== ENCOUNTER 2022-05-21 08:34 | Outpatient (CLI) | payer OTHER ==
[2022-05-21] MEDS ORDERED: Iopamidol 370 76% 100 ML VIAL ONE (09:04)
== END 2022-05-21 08:35 | disposition home or self-care (01) ==
LOC: CT 08:34
PROVIDERS: ATTEND Student in an Organized Health Care Education/Training Program
DX: I71.9 Aortic aneurysm of unspecified site, without rupture (principal)
CPT/HCPCS: 71275

== ENCOUNTER 2022-05-22 13:55 | Outpatient (CLI) | payer OTHER | END 2022-05-22 13:56 | disposition home or self-care (01) | LOC: ULT 13:55 | PROVIDERS: ATTEND Student in an Organized Health Care Education/Training Program | DX: I35.0 Nonrheumatic aortic (valve) stenosis (principal); I35.2 Nonrheumatic aortic (valve) stenosis with insufficiency; I34.0 Nonrheumatic mitral (valve) insufficiency; I07.1 Rheumatic tricuspid insufficiency | CPT/HCPCS: 93306 ==

== ENCOUNTER 2022-06-08 15:08 | Outpatient (CLI) | payer OTHER | END 2022-06-08 15:09 | disposition home or self-care (01) | LOC: ULT 15:08 | PROVIDERS: ATTEND Student in an Organized Health Care Education/Training Program | DX: E04.1 Nontoxic single thyroid nodule (principal); E04.2 Nontoxic multinodular goiter | CPT/HCPCS: 76536 ==

== ENCOUNTER 2022-10-04 09:53 | Emergency (ER) | payer OTHER, MEDICAID ==
[2022-10-04 12:20] LABS: SARS-CoV-2 NAA Rapid Test DETECTED (NotDetected)
== END 2022-10-04 10:20 | disposition home or self-care (01) ==
LOC: ERS 09:53
DX: U07.1 COVID-19 (principal); J06.9 Acute upper respiratory infection, unspecified; I25.10 Atherosclerotic heart disease of native coronary artery without angina pectoris; E78.5 Hyperlipidemia, unspecified; I10 Essential (primary) hypertension; Z87.891 Personal history of nicotine dependence; B20 Human immunodeficiency virus [HIV] disease; Z79.899 Other long term (current) drug therapy
CPT/HCPCS: 99283

== ENCOUNTER 2023-07-18 07:05 | Emergency (ER) | payer OTHER ==
[2023-07-18 07:32] LABS: #Basophils Less than 0.03 10x3/uL (0.0-0.2); %Basophils 0.3 % (0.0-1.0); %Eosinophils 1.9 % (0.0-10.0); %Lymphocytes 22.1 % (21.0-51.0); %Monocytes 7.1 % (0.0-10.0); %Neutrophils 68.2 % (42.0-75.0); Hemoglobin 10.1 g/dL (12.0-16.0); Mean Corpuscular HGB CONC 31.6 g/dL (32.0-36.0); Mean Corpuscular Hemoglobin 25.3 pg (27.0-31.0); Mean Platelet Volume 9.5 fL (7.4-10.4); Platelet Count 261 10x3/uL (130-400); RBC Distribution Width 13.2 % (11.5-14.5)
[2023-07-18] MEDS ORDERED: Pantoprazole 40 MG VIAL ONE (08:05)
[2023-07-18 08:10] LABS: ALT (SGPT) 8 U/L (8-55); AST (SGOT) 15 U/L (5-34); Albumin 3.2 g/dL (3.5-5.0); Alkaline Phosphatase 125 U/L (40-110); Anion Gap 13 mmol/L (10-20); BUN (Urea Nitrogen) 10 mg/dL (7.0-18.7); Bilirubin, Total 0.5 mg/dL (0.2-1.2); Calc. Creatinine Clearance 0 mL/min (70-130); Calcium 8.9 mg/dL (7.8-10.44); Carbon Dioxide 21 mmol/L (22-29); Chloride 107 mmol/L (98-107); Estimated GFR 91; Globulin 4.7 g/dL (2.4-3.5); Glucose 91 mg/dL (70-105); Potassium 3.4 mmol/L (3.5-5.1); Protein, Total 7.9 g/dL (6.0-8.3); Sodium 138 mmol/L (136-145)
[2023-07-18 08:12] LABS: Troponin I Less than 0.010 ng/mL (< 0.028)
[2023-07-18 08:49] LABS: Bacteria/HPF None Seen HPF (None Seen); Bilirubin Negative (Negative); Blood, Urine Negative (Negative); CAUTI Indications for Culture Dysuria,urgency,freq; Clarity Clear (Clear); Glucose, Urine (Dipstick) Normal (Negative); Ketone, Urine Negative (Negative); Leukocyte 75 Leu/uL (Negative); Nitrite Negative (Negative); Protein, Urine (Dipstick) Negative (Neg-Trace); RBC/HPF 0-3 HPF (0-3); Specific Gravity, Urine 1.012 (1.002-1.036); Urobilinogen Normal mg/dL (Less than 2); WBC/HPF 0-3 HPF (0-3)
[2023-07-18 08:51] LABS: Urine Culture Reflex No No
[2023-07-18] MEDS ORDERED: Acetaminophen 325 MG TAB ONE (09:21)
== END 2023-07-18 10:25 | disposition home or self-care (01) ==
LOC: ERS 07:05
DX: G43.909 Migraine, unspecified, not intractable, without status migrainosus (principal); R42 Dizziness and giddiness; R29.700 NIHSS score 0; I10 Essential (primary) hypertension; I25.10 Atherosclerotic heart disease of native coronary artery without angina pectoris; B20 Human immunodeficiency virus [HIV] disease; G62.9 Polyneuropathy, unspecified; Z87.891 Personal history of nicotine dependence; Z79.899 Other long term (current) drug therapy
CPT/HCPCS: 36415; 71045; 80053; 81001; 84484; 85025; 93005; 96374; C9113